=== PATIENT | female | born 1995 | race Caucasian/White ===

== ENCOUNTER 2020-02-17 18:18 | Outpatient (CLI) | payer OTHER | END 2020-02-17 18:19 | disposition home or self-care (01) | LOC: COV 18:18 | PROVIDERS: ATTEND Family Medicine | DX: R05 Cough (principal) ==

== ENCOUNTER 2020-05-31 17:49 | Emergency (ER) | payer OTHER ==
[2020-05-31] MEDS ORDERED: ALBUTEROL 1 PUFF INH STA ×2 (18:08→18:56)
--- NOTE | 2020-05-31 18:32 | ED Physician Documentation ---
History of Present Illness - Stated complaint Stated Complaint: COUGH, SOA - Chief complaint Chief Complaint: Resp - History obtained from History obtained from: Patient - History of Present Illness Timing: How many days ago - Additonal information Additional information: 25-year-old female presents to the emergency department with chief complaint of 6 days of dyspnea. 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 She has been using her albuterol but does not feel that it is helping. Patient reports that her parents have been sick recently but they have most tested negative for COVID-19. Subjective fevers 4 days ago but none since. No abdominal pain nausea vomiting or diarrhea. Patient denies possibility LMP May 16, 2020 No previous history of DVT or PE. no travel or unilateral leg swelling Review of Systems Constitutional: reports: Fever. denies: Chills, Myalgias Cardiac: denies: Chest pain / pressure, Palpitations Respiratory: reports: Dyspnea, Cough. denies: Hemoptysis, Wheezing GI: denies: Abdominal Pain, Abdominal Swelling, Nausea, Vomiting : denies: Dysuria Skin: reports: Rash, Lesions Musculoskeletal: reports: Neck pain, Back pain Neurologic: reports: Generalized weakness, Focal weakness PD PAST MEDICAL HISTORY - Past Medical History Past Medical History: Yes Cardiovascular: None Respiratory: Asthma Neuro: Migraines, Other Endocrine/Autoimmune: None GI: GERD AIRPORT RAMP SUPERVISOR: None : None HEENT: None Psych: Post traumatic stress disorder Musculoskeletal: None Derm: Eczema Other Past Medical History: brain aneurysm as child - Past Surgical History Past Surgical History: Yes General: Appendectomy HEENT: Tonsil/Adenoidectomy - Present Medications Home Medications: Ambulatory Orders Medication Instructions Recorded Confirmed Doxycycline Hyclate 100 mg PO BID #14 tablet. 05/31/20 predniSONE [Prednisone] 40 mg PO QDAC #8 tablet 05/31/20 - Allergies Allergies/Adverse Reactions: Allergies Allergy/AdvReac Type Severity Reaction Status Date / Time No Known Drug Allergies Allergy Verified 05/31/20 18:04 - Social History Does the pt smoke?: No Smoking Status: Never smoker Does the pt drink ETOH?: Yes Does the pt have substance abuse?: No - Immunizations Immunizations are current?: Yes - POLST Patient has POLST: No PD ED PE NORMAL - General General: Alert and oriented X 3, No acute distress, Well developed/nourished - HEENT HEENT: EOMI - Neck Neck: No bony TTP, No adenopathy - Cardiac Cardiac: RRR, No murmur - Respiratory Respiratory: Other (mild dyspnea; audible expiratory wheeze. dry cough) - Abdomen Abdomen: Normal bowel sounds, Soft, Non tender PD ED PE EXPANDED - General General: Alert, No acute distress, Well developed/nourished - Respiratory Respiratory: Wheezing (expiratory globally) - Abdomen Abdomen: Normal Bowel sounds. No: Distended, Tender to palpation - Derm Derm: No: Normal color, Warm and dry, Pale - GCS Eye Opening: Spontaneous Motor: Obeys Commands Verbal: Oriented Total: 15 Results - Vitals Vitals: Vital Signs - 24 hr 05/31/20 05/31/20 18:00 18:20 Temperature 36.1 C L 37.1 C Heart Rate 104 H 88 Respiratory 20 20 Rate Blood Pressure 139/82 H 126/83 H O2 Saturation 97 96 Oxygen O2 Source Room air - Rads (name of study) chest xray Radiology: Final report received (no acute cardiopulmonary process) PD MEDICAL DECISION MAKING - ED course Complexity details: reviewed results, re-evaluated patient, d/w patient, d/w family ED course: 25-year-old female who has a history of asthma presents with 6 days of progressive dyspnea dry cough and wheeze Chest x-ray is negative for acute focal infiltrate. Patient was given 6 puffs of albuterol using a spacer. Following this she had a cessation of her wheeze and her breathing was much less labored. - Patient is Wells criteria negative. Low suspicion for PE. Patient will be discharged with a prednisone burst as well as a doxycycline given her reported fevers and cough. ? bacterial bronchitis. COVID-19 testing is pending. Return precautions discussed if patient fails to improve as expected. Departure - Departure Disposition: 01 Home, Self Care Clinical Impression: Bronchitis Asthma with acute exacerbation Qualifiers: Asthma severity: moderate Asthma persistence: unspecified Qualified Code(s): J4 5.901 - Unspecified asthma with (acute) exacerbation Condition: Stable Instructions: Asthma Dc Prescriptions: Doxycycline Hyclate 100 mg PO BID #14 tablet. predniSONE [Prednisone] 40 mg PO QDAC #8 tablet Comments: I hoipe you feel better soon. Your xray is normal. I think this is an exacerba tion of your asthma. let's give you some steroids at home. This should help with cough and wheeze. As you've also had a fever and cough, we are starting you on antibiotics as well. COVID 19 testign is pending. REeturn here is not better. schedule follow up with your primary is 7-10 days
--- NOTE | 2020-05-31 18:44 | XRAY Report ---
PROCEDURE: Chest 1 View X-Ray INDICATIONS: cough TECHNIQUE: One view of the chest was acquired. COMPARISON: None. FINDINGS: Surgical changes and devices: None. Lungs and pleura: No pleural effusions or pneumothorax. Lungs are clear. Mediastinum: Mediastinal contours appear normal. Heart size is normal. Bones and chest wall: No suspicious bony lesions. Overlying soft tissues appear unremarkable. IMPRESSION: No acute cardiopulmonary disease. Reviewed by: David Max MD on 05/31/2020 6:42 PM PDT Approved by: David Max MD on 05/31/2020 6:42 PM PDT Station ID: [id number]
[2020-05-31] MEDS ORDERED: predniSONE 20 MG TABLET PO STA (19:09)
[2020-05-31 19:41] VITALS: BP 125/75
== END 2020-05-31 19:44 | disposition home or self-care (01) ==
LOC: ED 17:49
DX: J45.901 Unspecified asthma with (acute) exacerbation (principal); Z20.828 Contact with and (suspected) exposure to other viral communicable diseases
CPT/HCPCS: 71045; 81599; 94640; 99284; J7512

== ENCOUNTER 2021-01-31 20:19 | Emergency (ER) | payer OTHER ==
[2021-01-31] MEDS ORDERED: ALBUTEROL NEB 2.5 MG/3 ML INH STA ×2 (21:17→23:07)
[2021-01-31] MEDS ORDERED: CHERRY SYRUP 10 ML UDC PO ONE (21:21)
[2021-01-31] MEDS ORDERED: DEXAMETHASONE 10 MG/ML VIAL PO STA (21:21)
[2021-01-31] MEDS ORDERED: LIDOCAINE 1% 2 ML VIAL MC ONE (21:42)
[2021-01-31] MEDS ORDERED: cefTRIAXone 1 GM VIAL IM STA (21:42)
--- NOTE | 2021-01-31 21:52 | XRAY Report ---
PROCEDURE: Chest 1 View X-Ray INDICATIONS: chest pain TECHNIQUE: One view of the chest was acquired. COMPARISON: 05/31/2020 chest x-ray FINDINGS: Surgical changes and devices: None. Lungs and pleura: No pleural effusions or pneumothorax. Lungs are clear. Mediastinum: Mediastinal contours appear normal. Heart size is normal. Bones and chest wall: No suspicious bony lesions. Overlying soft tissues appear unremarkable. IMPRESSION: No acute process. Reviewed by: Robel Cruz MD on 01/31/2021 9:50 PM PST Approved by: Robel Cruz MD on 01/31/2021 9:50 PM [facility] Station ID: [id number]
[2021-01-31] MEDS ORDERED: IPRATROPIUM/ALBUTEROL 3 ML NEB INH STA (21:53)
--- NOTE | 2021-01-31 22:25 | ED Physician Documentation ---
PD HPI DYSPNEA - Stated complaint Stated Complaint: SOA - Chief complaint Chief Complaint: Resp - History obtained from History obtained from: Patient - History of Present Illness Timing - onset: How many days ago (4) Timing - onset during: Rest Timing - duration: Days (4) Timing - details: Gradual onset, Still present Inciting event(s): Out of meds, URI Improved by: Inhaler/neb Worsened by: Exertion, Coughing Associated symptoms: Cough, Wheezing. No: Fever Similar symptoms before: Diagnosis (asthma) Recently seen: Not recently seen - Additional information Additional information: Previously well 26-year-old female with a history of intermittent asthma has developed a cough and shortness of breath over the past 4 days and she has run out of her albuterol. She has been struggling more and more over the last 2 days and she comes in this evening dyspneic and working for breath. She has had an episode of asthmatic bronchitis last summer and following this she has had a bit more trouble with her asthma than previously. She still does not have to use an inhaler at all on a good week.She denies any exposure to coronavirus and states that she is in her home almost entirely. Review of Systems Constitutional: denies: Fever Eyes: denies: Decreased vision Ears: reports: Ear pain (R) Nose: reports: Rhinorrhea / runny nose, Congestion Throat: denies: Sore throat Cardiac: denies: Chest pain / pressure, Palpitations Respiratory: reports: Dyspnea, Cough, Wheezing GI: denies: Abdominal Pain, Nausea, Vomiting : denies: Dysuria, Frequency Skin: denies: Rash Musculoskeletal: denies: Neck pain, Back pain, Extremity pain Neurologic: denies: Generalized weakness, Focal weakness, Numbness PD PAST MEDICAL HISTORY - Past Medical History Cardiovascular: None Respiratory: Asthma Neuro: Migraines, Other Endocrine/Autoimmune: None GI: GERD DAYCARE WORKER: None : None HEENT: None Psych: Post traumatic stress disorder Musculoskeletal: None Derm: Eczema - Past Surgical History Past Surgical History: Yes General: Appendectomy HEENT: Tonsil/Adenoidectomy - Present Medications Home Medications: Ambulatory Orders Medication Instructions Recorded Confirmed Doxycycline Hyclate 100 mg PO BID #14 tablet. 05/31/20 predniSONE [Prednisone] 40 mg PO QDAC #8 tablet 05/31/20 Albuterol 2.5 mg INH Q4H PRN #30 ml 01/31/21 Albuterol Sulf [Ventolin Hfa 1 - 2 puffs INH Q4HR PRN #1 inhaler 01/31/21 Inhaler] Cefdinir 300 mg PO BID #20 01/31/21 predniSONE [Deltasone] 10 mg PO ONCE #26 tablet 01/31/21 - Allergies Allergies/Adverse Reactions: Allergies Allergy/AdvReac Type Severity Reaction Status Date / Time Penicillins Allergy Rash Verified 01/31/21 20:42 - Social History Does the pt smoke?: No Smoking Status: Never smoker Does the pt drink ETOH?: Yes Does the pt have substance abuse?: No - Immunizations Immunizations are current?: Yes - POLST Patient has POLST: No PD ED PE NORMAL - Vitals Vital signs reviewed: Yes (Hypertensive) - General General: Alert and oriented X 3, Well developed/nourished, Other (26-year-old female working for a breath with audible wheezing. She appears uncomfortable.) - HEENT HEENT: Atraumatic, PERRL, EOMI, Pharynx benign, Other (The right TM has erythema along the inferior border of the umbo and appears distorted. The left is clear) - Neck Neck: Supple, no meningeal sign, No bony TTP - Cardiac Cardiac: RRR, No murmur - Respiratory Respiratory: Other (The patient is tachypneic at rest and there are scattered wheezes and rhonchi throughout the lungs with poor air movement.) - Abdomen Abdomen: Soft, Non tender - Back Back: No CVA TTP, No spinal TTP - Derm Derm: Normal color, Warm and dry, No rash - Extremities Extremities: No deformity, No edema - Neuro Neuro: Alert and oriented X 3, occupational therapy director 2-12 intact, No motor deficit, No sensory deficit, Normal speech Eye Opening: Spontaneous Motor: Obeys Commands Verbal: Oriented GCS Score: 15 - Psych Psych: Normal mood, Normal affect Results - Vitals Vitals: Vital Signs - 24 hr 01/31/21 01/31/21 01/31/21 20:37 21:49 22:10 Temperature 36.7 C Heart Rate 96 91 102 H Respiratory 14 20 16 Rate Blood Pressure 133/94 H O2 Saturation 98 Oxygen O2 Source Room air - Rads (name of study) Chest Radiology: Prelim report reviewed (Impression: No acute process.), EMP read indepedently, See rad report PD MEDICAL DECISION MAKING - ED course Complexity details: reviewed old records, reviewed results, re-evaluated patient, considered differential, d/w patient ED course: 26-year-old female with a history of intermittent asthma has developed an asthma attack this week. She has run out of her albuterol rescue medication 2 days ago and she has been having a difficult time with breathing for the past 2 days. She arrives to the emergency department with audible wheezing and appears to be uncomfortable.She is administered an albuterol treatment as well as a DuoNeb treatment she is administered dexamethasone 10 mg and a gram of Rocephin IM. On examination she has otitis on the right side. She has a lot of wheezes and rhonchi on her exam her chest x-ray is read as negative. She does not have an inhaler at home and I am not able to dispense an inhaler to the patient. I have dispensed to albuterol fish to the patient as she does have a nebulizer machine at home. Departure - Departure Disposition: , Self Care Clinical Impression: Asthma with acute exacerbation Qualifiers: Asthma severity: mild Asthma persistence: intermittent Qualified Code(s): J45.21 - Mild intermittent asthma with (acute) exacerbation Otitis media Qualifiers: Otitis media type: suppurative Chronicity: acute Laterality: right Recurrence: not specified as recurrent Spontaneous tympanic membrane rupture: without spontaneous rupture Qualified Code(s): H66.001 - Acute suppurative otitis media without spontaneous rupture of ear drum, right ear Condition: Stable Instructions: ED Bronchitis Asthmatic, ED Otitis Media Acute Adult Follow-Up: [facility] [Provider Group] Prescriptions: Albuterol Sulf [Ventolin Hfa Inhaler] 1 - 2 puffs INH Q4HR PRN #1 inhaler PRN Reason: Shortness Of Air/Wheezing Albuterol 2.5 mg INH Q4H PRN #30 ml PRN Reason: Wheezing Cefdinir 300 mg PO BID #20 predniSONE [Deltasone] 10 mg PO ONCE #26 tablet
[2021-01-31 23:41] VITALS: BP 123/80
== END 2021-01-31 23:42 | disposition home or self-care (01) ==
LOC: ED 20:19
DX: J45.21 Mild intermittent asthma with (acute) exacerbation (principal); H66.001 Acute suppurative otitis media without spontaneous rupture of ear drum, right ear
CPT/HCPCS: 71045; 94640; 96372; 99284; 99285; A9270

== ENCOUNTER 2023-06-06 08:00 | Outpatient (CLI) | payer MEDICAID, OTHER ==
[2023-06-06 12:42] LABS: BILIRUBIN,URINE NEGATIVE (NEGATIVE); GLUCOSE, URINE (UA) NEGATIVE (NEGATIVE); KETONES,URINE (UA) NEGATIVE (NEGATIVE); LEUKOCYTE ESTERASE, URINE SMALL (NEGATIVE); NITRITE,URINE POSITIVE (NEGATIVE); OCCULT BLOOD,URINE NEGATIVE (NEGATIVE); PH,URINE 5.5 PH (5.0-7.5); PROTEIN,URINE NEGATIVE (NEGATIVE); UROBILINOGEN,URINE 0.2 (NORMAL) E.U./dL (NORMAL)
[2023-06-06 13:10] LABS: CLARITY,URINE CLOUDY (CLEAR); RBC,URINE 0-5 /HPF (0-5); SQUAMOUS EPITHELIAL CELL,UR MOD Squamous (<= Few)
[2023-06-06 13:11] LABS: BACTERIA,URINE Many /HPF (None Seen); CRYSTALS,URINE 0-2 Calcium Oxalate /LPF
[2023-06-06 18:23] LABS: CHLAMYDIA TRACHOMATIS DNA NEGATIVE (NEGATIVE); NEISSERIA GONORRHOEAE DNA NEGATIVE (NEGATIVE); TRICHOMONAS VAGINALIS DNA NEGATIVE (NEGATIVE)
== END 2023-06-06 23:59 | disposition home or self-care (01) ==
LOC: LAB.WC 08:00
PROVIDERS: ATTEND Obstetrics & Gynecology
DX: Z34.90 Encounter for supervision of normal pregnancy, unspecified, unspecified trimester (principal); Z36.89 Encounter for other specified antenatal screening
CPT/HCPCS: 81001; 87086; 87491; 87591; 87661

== ENCOUNTER 2023-06-24 12:56 | Outpatient (CLI) | payer MEDICAID ==
[2023-06-24 18:05] LABS: BILIRUBIN,URINE NEGATIVE (NEGATIVE); GLUCOSE, URINE (UA) NEGATIVE (NEGATIVE); KETONES,URINE (UA) NEGATIVE (NEGATIVE); LEUKOCYTE ESTERASE, URINE TRACE (NEGATIVE); NITRITE,URINE NEGATIVE (NEGATIVE); OCCULT BLOOD,URINE NEGATIVE (NEGATIVE); PROTEIN,URINE NEGATIVE (NEGATIVE); UROBILINOGEN,URINE 0.2 (NORMAL) E.U./dL (NORMAL)
[2023-06-24 18:14] LABS: CLARITY,URINE CLOUDY (CLEAR)
[2023-06-24 18:40] LABS: AMORPHOUS SEDIMENT,UR Marked /LPF; BACTERIA,URINE Rare /HPF (None Seen); RBC,URINE None Seen /HPF (0-5); SQUAMOUS EPITHELIAL CELL,UR RARE Squamous (<= Few); WBC,URINE 0-3 /HPF (0-5)
== END 2023-06-24 12:57 | disposition home or self-care (01) ==
LOC: LAB.N 12:56
PROVIDERS: ATTEND Obstetrics & Gynecology
DX: Z34.90 Encounter for supervision of normal pregnancy, unspecified, unspecified trimester (principal)
CPT/HCPCS: 81001; 87086; 87181

== ENCOUNTER 2023-07-16 11:40 | Outpatient (CLI) | payer MEDICAID | END 2023-07-16 11:41 | disposition home or self-care (01) | LOC: LAB.N 11:40 | PROVIDERS: ATTEND Obstetrics & Gynecology | DX: Z36.0 Encounter for antenatal screening for chromosomal anomalies (principal) | CPT/HCPCS: 36415; 81511 ==

== ENCOUNTER 2023-07-24 13:37 | Outpatient (CLI) | payer MEDICAID ==
--- NOTE | 2023-07-24 15:25 | Ultrasound Report ---
PROCEDURE: OB Detailed Eval INDICATIONS: SUPERVISION OF NORMAL PREGANCY OUTSIDE/PRIOR DATING DATA: Last menstrual period (LMP): 03/06/2023. LMP-based estimated date of delivery (OTILIO): 12/11/2023. First dating scan (date and location): 05/19/2023. Estimated date of delivery (OTILIO) from first dating scan: 12/18/2023. The below data below was generated using the ultrasound OTILIO of 12/18/2023 TECHNIQUE: Real-time scanning was performed of the fetus, with image documentation and biometric measurements. Endovaginal scanning: Not performed COMPARISON: None. FINDINGS: General: A single living intrauterine gestation is present. Presentation: Cephalic Placenta: Placental position is anterior, without previa. Amniotic fluid index: 14.3 cm, within normal limits for gestational age. heart rate: 150 beats per minute. Maternal cervical canal: 3.8 cm long; normal length is 2.5 cm or more. biometrics: Biparietal diameter: 4.7 cm, 20 weeks 2 days Head circumference: 17.4 cm, 19 weeks 6 days Abdominal circumference: 14.1 cm, 19 weeks 3 days Femur length: 2.9 cm, 18 weeks 5 days Estimated gestational age from initial scan: 19 weeks 0 days Composite gestational age from present scan: 19 weeks 4 days Estimated weight and percentile: 283 g, 61st percentile Measurement variability in biometric dating: +/- 10 days from 12-20 weeks gestation, +/- 2 weeks from 20-30 weeks gestation, +/- 3 weeks at 30 weeks gestation or later. Anatomic survey: Neuro: Ventricles are normal at less than 10 mm. Cisterna magna is normal at 3-11 mm. Cerebellum i s normal in size and morphology. Nuchal skin fold: Normal at less than 6 mm between 14 and 20 weeks gestational age. Face: Nose and lips, facial profile are normal. Spine: No evidence for spina bifida. Heart: 4-chambered heart is present, with normal ventricular outflow tracts. Diaphragm: Diaphragm is intact. Stomach: Left-sided stomach is present. Kidneys: No hydronephrosis. Normal is less than 5 mm in 2nd trimester, less than 7 mm in 3rd trimester. Cord: 3 vessel cord has orthotopic insertion. Bladder: Normal in size. Extremities: All 4 extremities are visualized. IMPRESSION: 1.Single live intrauterine dating 19 weeks and 4 days. 2.Normal anatomic survey. Reviewed by: Anish Goldberg MD on 07/24/2023 3:23 PM PDT Approved by: Anish Goldberg MD on 07/24/2023 3:23 PM PDT Station ID: [id number]
== END 2023-07-24 13:38 | disposition home or self-care (01) ==
LOC: DI 13:37
PROVIDERS: ATTEND Obstetrics & Gynecology
DX: Z34.01 Encounter for supervision of normal first pregnancy, first trimester (principal)

== ENCOUNTER 2023-08-29 08:00 | Outpatient (CLI) | payer MEDICAID ==
[2023-08-29 19:37] LABS: BACTERIAL VAGINOSIS DNA POSITIVE (NEGATIVE); CANDIDA GLABRATA DNA NEGATIVE (NEGATIVE); CANDIDA GROUP DNA POSITIVE (NEGATIVE); CANDIDA KRUSEI DNA NEGATIVE (NEGATIVE); TRICHOMONAS VAGINALIS DNA NEGATIVE (NEGATIVE)
== END 2023-08-29 23:59 | disposition home or self-care (01) ==
LOC: LAB.WC 08:00
PROVIDERS: ATTEND Nurse Practitioner
DX: N89.8 Other specified noninflammatory disorders of vagina (principal)
CPT/HCPCS: 81514

== ENCOUNTER 2023-09-05 13:44 | Outpatient (CLI) | payer MEDICAID ==
[2023-09-05 15:01] LABS: HCT - HEMATOCRIT 33.2 % (37.0-47.0); HGB - HEMOGLOBIN 10.9 g/dL (12.0-16.0); MEAN CORPUSCULAR HEMOGLOBIN 29.3 pg (27.0-31.0); MEAN CORPUSCULAR HGB CONC 32.8 g/dL (32.0-36.0); MEAN CORPUSCULAR VOLUME 89.2 fL (81.0-99.0); MEAN PLATELET VOLUME 10.8 fL (7.9-10.8); RED BLOOD COUNT 3.72 10^6/uL (4.20-5.40); RED CELL DISTRIBUTION WIDTH 12.5 % (12.0-15.0); WHITE BLOOD COUNT 11.5 x10^3/uL (4.8-10.8)
== END 2023-09-05 13:45 | disposition home or self-care (01) ==
LOC: LAB 13:44
PROVIDERS: ATTEND Nurse Practitioner
DX: Z34.00 Encounter for supervision of normal first pregnancy, unspecified trimester (principal)
CPT/HCPCS: 36415; 82950; 85027; 86850

== ENCOUNTER 2023-10-01 17:13 | Outpatient (CLI) | payer MEDICAID ==
--- NOTE | 2023-10-02 16:08 | Ultrasound Report ---
PROCEDURE: OB F/U or Repeat INDICATIONS: EXCESSIVE WEIGHT GAIN OUTSIDE/PRIOR DATING DATA: Last menstrual period (LMP): 03/06/2023. LMP-based estimated date of delivery (OTILIO): 12/11/2023. First dating scan (date and location): 05/19/2023. Estimated date of delivery (OTILIO) from first dating scan: 12/18/2023. The below data below was generated using the ultrasound OTILIO of 12/18/2023. TECHNIQUE: Real-time scanning was performed of the fetus, with image documentation and biometric measurements. Endovaginal scanning: Not performed. COMPARISON: OB ultrasound, 07/24/2023. FINDINGS: General: A single living intrauterine gestation is present. Presentation: Cephalic Placenta: Placental position is anterior, without previa. Amniotic fluid index: 15.6 cm, with the largest pocket 5.3 cm. heart rate: 147 beats per minute. Maternal cervical canal: Closed measuring 3.5 cm long; normal length is 2.5 cm or more. biometrics: Biparietal diameter: 7.8 cm; 31 weeks 2 days; 95.8%. Head circumference: 29.2 cm; 32 weeks 1 day; 96.2%. Abdominal circumference: 25.2 cm; 29 weeks 3 days; 59.8%. Femur length: 5.5 cm; 29 weeks 1 day; 43.2%. Estimated gestational age from initial scan: 28 weeks 6 days Composite gestational age from present scan: 30 weeks 4 days Estimated weight and percentile: 4407 g; 69.3%. Measurement variability in biometric dating: +/- 10 days from 12-20 weeks gestation, +/- 2 weeks from 20-30 weeks gestation, +/- 3 weeks at 30 weeks gestation or more. Other: Nuchal cord is noted. IMPRESSION: 1. A single living IUP is redemonstrated. 2. Interval growth is within normal limits. weight is 69.3% for gestational age. 3. Normal NEHA. 4. Nuchal cord is noted. Reviewed by: David Max MD on 10/02/2023 4:07 PM PST Approved by: David Max MD on 10/02/2023 4:07 PM PST Station ID: [id number]
== END 2023-10-01 17:14 | disposition home or self-care (01) ==
LOC: DI 17:13
PROVIDERS: ATTEND Obstetrics & Gynecology
DX: O26.02 Excessive weight gain in pregnancy, second trimester (principal); Z3A.30 30 weeks gestation of pregnancy

== ENCOUNTER 2023-10-23 07:00 | Outpatient (CLI) | payer MEDICAID ==
[2023-10-23 15:09] LABS: BILIRUBIN,URINE NEGATIVE (NEGATIVE); GLUCOSE, URINE (UA) 500 mg/dL (NEGATIVE); KETONES,URINE (UA) TRACE mg/dL (NEGATIVE); LEUKOCYTE ESTERASE, URINE NEGATIVE (NEGATIVE); NITRITE,URINE NEGATIVE (NEGATIVE); OCCULT BLOOD,URINE NEGATIVE (NEGATIVE); PH,URINE 5.5 PH (5.0-7.5); PROTEIN,URINE TRACE mg/dL (NEGATIVE); UROBILINOGEN,URINE 0.2 (NORMAL) E.U./dL (NORMAL)
[2023-10-23 15:30] LABS: CLARITY,URINE CLOUDY (CLEAR)
[2023-10-23 15:55] LABS: AMORPHOUS SEDIMENT,UR Marked /LPF; BACTERIA,URINE None Seen /HPF (None Seen); RBC,URINE None Seen /HPF (0-5); SQUAMOUS EPITHELIAL CELL,UR RARE Squamous (<= Few); WBC,URINE 0-3 /HPF (0-5)
== END 2023-10-23 23:59 | disposition home or self-care (01) ==
LOC: LAB.S 07:00
PROVIDERS: ATTEND Nurse Practitioner
DX: N30.90 Cystitis, unspecified without hematuria (principal)
CPT/HCPCS: 81001; 87086

== ENCOUNTER 2023-11-04 19:29 | Outpatient (CLI) | payer MEDICAID ==
--- NOTE | 2023-11-05 14:31 | Ultrasound Report ---
PROCEDURE: OB F/U or Repeat INDICATIONS: EXCESSIVE WEIGHT GAIN IN OUTSIDE/PRIOR DATING DATA: Last menstrual period (LMP): 03/06/2023. LMP-based estimated date of delivery (OTILIO): 12/11/2023. First dating scan (date and location): 05/19/2023. Estimated date of delivery (OTILIO) from first dating scan: 12/18/2023. The below data below was generated using the working OTILIO of 12/18/2023 TECHNIQUE: Ultrasound of the gravid uterus was performed and recorded. COMPARISON: 10/01/2023 FINDINGS: General: A single live intrauterine gestation is present. Presentation: Vertex Placenta: Placental position is anterior without previa. Amniotic fluid index: 20.8 cm, 84.9 for gestational age. heart rate: 127 beats per minute. Maternal cervical canal: Not imaged biometrics: Biparietal diameter: 6.9 cm, 36 week 1 day, 96.4 percentile Head circumference: 34.0 cm, 39 week 1 day, greater than 99.5 percentile Abdominal circumference: 32.2 cm, 36 week 1 day, 97.1 percentile Femur length: 6.1 cm, 33 week 1 day, 23.1 percentile Estimated gestational age by working dates: 33 week 5 day Composite gestational age by current ultrasound: 36 week 1 day Estimated weight and percentile: 2730.3 g, 92.1 percentile Measurement variability in biometric dating: +/- 10 days from 12-20 weeks gestation, +/- 2 weeks from 20-30 weeks gestation, +/- 3 weeks at 30 weeks gestation or more. Other: Not applicable. IMPRESSION: Single live intrauterine consistent with 36 week 1 day gestation by current ultrasound Dates by current ultrasound and working OTILIO are discrepant by 2 week 3 day. There is a relative femur length delay as well. Reviewed by: Ike Mcdonald MD on 11/05/2023 1:30 PM [facility] Approved by: Ike Mcdonald MD on 11/05/2023 1:30 PM [facility] Station ID: [id number]
== END 2023-11-04 19:30 | disposition home or self-care (01) ==
LOC: DI 19:29
PROVIDERS: ATTEND Nurse Practitioner
DX: O26.03 Excessive weight gain in pregnancy, third trimester (principal); Z3A.36 36 weeks gestation of pregnancy

== ENCOUNTER 2023-11-05 09:07 | Outpatient (CLI) | payer MEDICAID ==
[2023-11-05 10:22] LABS: HCT - HEMATOCRIT 35.3 % (37.0-47.0); HGB - HEMOGLOBIN 11.5 g/dL (12.0-16.0); MEAN CORPUSCULAR HEMOGLOBIN 28.5 pg (27.0-31.0); MEAN CORPUSCULAR HGB CONC 32.6 g/dL (32.0-36.0); MEAN CORPUSCULAR VOLUME 87.4 fL (81.0-99.0); MEAN PLATELET VOLUME 11.5 fL (7.9-10.8); RED BLOOD COUNT 4.04 10^6/uL (4.20-5.40); RED CELL DISTRIBUTION WIDTH 13.4 % (12.0-15.0); WHITE BLOOD COUNT 11.3 x10^3/uL (4.8-10.8)
[2023-11-05 12:27] LABS: ESTIMATED AVERAGE GLUCOSE 117 mg/dL (70-100); HEMOGLOBIN A1c% 5.7 % (4.27-6.07)
== END 2023-11-05 09:08 | disposition home or self-care (01) ==
LOC: LAB 09:07
PROVIDERS: ATTEND Nurse Practitioner
DX: O99.891 Other specified diseases and conditions complicating pregnancy (principal); R81 Glycosuria; Z36.89 Encounter for other specified antenatal screening
CPT/HCPCS: 36415; 82950; 83036; 85027

== ENCOUNTER 2023-11-14 16:19 | Outpatient (CLI) | payer MEDICAID ==
[2023-11-14] MEDS ORDERED: SODIUM CHLORIDE FLUSH 0.9% 10 ML SYRINGE IVP PRN (17:21)
[2023-11-14] MEDS ORDERED: LACTATED RINGERS 500 ML IV ONE (17:21)
[2023-11-14] MEDS ORDERED: LACTATED RINGERS 1,000 ML IV ONE (17:30)
--- NOTE | 2023-11-14 18:59 | PROVIDER PROGRESS NOTE ---
- HPI Chief Complaint: Diabetes Current : Current EDU 12/18/23 Gestation 35 Weeks and 1 Days 3 Para 0 Vital Signs Temperature 97.9 F 11/14/23 16:32 Heart Rate 90 11/14/23 16:32 Respiratory Rate 18 11/14/23 16:32 Blood Pressure 120/68 11/14/23 16:32 Temperature 97.9 F 11/14/23 16:32 Heart Rate 90 11/14/23 16:32 Respiratory Rate 18 11/14/23 16:32 Blood Pressure 120/68 11/14/23 16:32 O2 Saturation If not protocol: Oxygen Flow, liters/minute - Exam VSS NAD Conjunctiva pink, pale sclera +S1, S2, early systolic murmur - pt reports this is a known heart murmur since CTAB, no increased work of breathing Abd soft, NT, ND, visibly gravid at late EFM: 150mod corin + A cells no D cells, reactive [place]: acontractile --> hydration increased ctx --> voided --> still ctx Cx: Ext: neg CCE - Procedures OB Procedure Performed: NST Diagnosis/Indication for NST: Gestational Diabetes NST Procedure: NST Procedure Start Date 11/14/23 Start Time 16:30 Stop Time 17:00 Vibroacoustic Stimulation Used No Patient States Movement Yes Findings: 150 mod corin + A cells no D cells reactive - Plan Plan: will recheck cx in 4h to see if any change as 35w and essential prime continue IV hydration.
[2023-11-14] MEDS ORDERED: LACTATED RINGERS 1,000 ML IV PRN ×2 (19:25→19:49)
--- NOTE | 2023-11-14 22:56 | PROVIDER PROGRESS NOTE ---
- HPI Current : Current EDU 12/18/23 Gestation 35 Weeks and 1 Days 3 Para 0 Vital Signs Temperature 97.9 F 11/14/23 16:32 Heart Rate 90 11/14/23 16:32 Respiratory Rate 18 11/14/23 16:32 Blood Pressure 120/68 11/14/23 16:32 Temperature 97.9 F 11/14/23 16:32 Heart Rate 90 11/14/23 16:32 Respiratory Rate 18 11/14/23 16:32 Blood Pressure 120/68 11/14/23 16:32 O2 Saturation If not protocol: Oxygen Flow, liters/minute - Procedures NST Procedure: NST Procedure Start Date 11/14/23 Start Time 16:30 Stop Time 17:00 Vibroacoustic Stimulation Used No Patient States Movement Yes - Plan Plan: Pt now s/p 2L of fluid, and PO fluid NST more reassuring -- 150 mod corin + A cells no D cells VSS Cx: rechecked - //hi -- no change -- cannot insert finger through internal os. Plan: D/C home with precautions and instructions f/u with next scheduled NST.
[2023-11-14 23:28] VITALS: BP 127/68
[2023-11-15 00:27] LABS: BACTERIAL VAGINOSIS DNA NEGATIVE (NEGATIVE); CANDIDA GLABRATA DNA NEGATIVE (NEGATIVE); CANDIDA GROUP DNA POSITIVE (NEGATIVE); CANDIDA KRUSEI DNA NEGATIVE (NEGATIVE); TRICHOMONAS VAGINALIS DNA NEGATIVE (NEGATIVE)
== END 2023-11-14 23:38 | disposition home or self-care (01) ==
LOC: WFO 16:19 → FBP 16:20 → WFO 23:38
PROVIDERS: ATTEND Obstetrics & Gynecology
DX: O24.419 Gestational diabetes mellitus in pregnancy, unspecified control (principal); Z3A.35 35 weeks gestation of pregnancy; O99.891 Other specified diseases and conditions complicating pregnancy; R01.1 Cardiac murmur, unspecified
CPT/HCPCS: 59025; 81514; 96360; 99215; J7120

== ENCOUNTER 2023-11-18 13:16 | Outpatient (CLI) | payer MEDICAID ==
[2023-11-18 13:43] VITALS: BP 122/78
--- NOTE | 2023-11-18 16:01 | PROCEDURE REPORT ---
- HPI Current EDU 12/18/23 Gestation 35 Weeks and 5 Days 3 Para 0 Vital Signs Temperature 98.4 F 11/18/23 13:26 Heart Rate 95 11/18/23 13:26 Respiratory Rate 18 11/18/23 13:26 Blood Pressure 122/78 11/18/23 13:26 Temperature 98.4 F 11/18/23 13:26 Heart Rate 95 11/18/23 13:26 Respiratory Rate 18 11/18/23 13:26 Blood Pressure 122/78 11/18/23 13:26 O2 Saturation If not protocol: Oxygen Flow, liters/minute - NST Procedure NST Procedure Start Date 11/18/23 Start Time 13:24 Stop Time 14:21 Vibroacoustic Stimulation Used No Patient States Movement Yes - Results and Plan Plan: Patient is a 28-year-old G3, P0 at 35 weeks 5 days gestation here for scheduled NST. NST Performed 11/18/2023 NST Read 11/18/2023 FHT: 145 bpm baseline, moderate variability, accelerations present, no decelerations. Reactive NST [place]: Irregular, declines significant pain. Declined cervical check. Diagnosis 35 weeks gestation Abnormal glucose tolerance in Continue with scheduled NST.
== END 2023-11-18 15:00 | disposition home or self-care (01) ==
LOC: WFO 13:16 → FBP 13:18 → WFO 15:00
PROVIDERS: ATTEND Obstetrics & Gynecology
DX: O99.810 Abnormal glucose complicating pregnancy (principal); Z3A.35 35 weeks gestation of pregnancy
CPT/HCPCS: 59025

== ENCOUNTER 2023-11-19 21:02 | Outpatient (CLI) | payer MEDICAID ==
--- NOTE | 2023-11-20 13:57 | Ultrasound Report ---
PROCEDURE: OB F/U or Repeat INDICATIONS: ABNL GLUCOSE TOLERANCE IN PREG OUTSIDE/PRIOR DATING DATA: Last menstrual period (LMP): 03/06/2023. LMP-based estimated date of delivery (OTILIO): 12/11/2023. First dating scan (date and location): 05/19/2023. Estimated date of delivery (OTILIO) from first dating scan: 12/18/2023. The below data below was generated using the working OTILIO of 12/18/2023 TECHNIQUE: Ultrasound of the gravid uterus was performed and recorded. COMPARISON: 11/04/2023 FINDINGS: General: A single live intrauterine gestation is present. Presentation: Vertex Placenta: Placental position is anterior without previa. Amniotic fluid index: 22.1 cm, within normal limits for gestational age. heart rate: 147 beats per minute. Maternal cervical canal: Not imaged. biometrics: Biparietal diameter: 9.3 cm, 37 week 6 day, 95.7 percentile Head circumference: 34.5 cm, 40 week 0 day, 96.5 percentile Abdominal circumference: 34.4 cm, 38 week 2 day, 98.2 percentile Femur length: 6.7 cm, 34 week 4 day, 15.7 percentile Estimated gestational age by working dates: 35 week 6 day Composite gestational age by current ultrasound: 37 week 5 day Estimated weight and percentile: 3249.5 g, 90.7 percentile Measurement variability in biometric dating: +/- 10 days from 12-20 weeks gestation, +/- 2 weeks from 20-30 weeks gestation, +/- 3 weeks at 30 weeks gestation or more. Other: Biophysical profile score 8 out of 8 IMPRESSION: Single live intrauterine consistent with 37 week 5 day gestation by current ultrasound and 35 week 6 day by first dating scan. Biophysical profile score 8 out of 8. Reviewed by: Ike Mcdonald MD on 11/20/2023 12:56 PM [facility] Approved by: Ike Mcdonald MD on 11/20/2023 12:56 PM [facility] Station ID: [id number]
--- NOTE | 2023-11-20 13:58 | Ultrasound Report ---
PROCEDURE: OB Biophysical Profile INDICATIONS: ABN GLUCOSE TEST IN OUTSIDE/PRIOR DATING DATA: Last menstrual period (LMP): 03/06/2023. LMP-based estimated date of delivery (OTILIO): 12/11/2023. First dating scan (date and location): 05/19/2023. Estimated date of delivery (OTILIO) from first dating scan: 12/18/2023. The below data below was generated using the working OTILIO of 12/18/2023 TECHNIQUE: Ultrasound of the gravid uterus was performed and recorded. COMPARISON: 11/04/2023 FINDINGS: General: A single live intrauterine gestation is present. Presentation: Vertex Placenta: Placental position is anterior without previa. Amniotic fluid index: 22.1 cm, within normal limits for gestational age. heart rate: 147 beats per minute. Maternal cervical canal: Not imaged. biometrics: Biparietal diameter: 9.3 cm, 37 week 6 day, 95.7 percentile Head circumference: 34.5 cm, 40 week 0 day, 96.5 percentile Abdominal circumference: 34.4 cm, 38 week 2 day, 98.2 percentile Femur length: 6.7 cm, 34 week 4 day, 15.7 percentile Estimated gestational age by working dates: 35 week 6 day Composite gestational age by current ultrasound: 37 week 5 day Estimated weight and percentile: 3249.5 g, 90.7 percentile Measurement variability in biometric dating: +/- 10 days from 12-20 weeks gestation, +/- 2 weeks from 20-30 weeks gestation, +/- 3 weeks at 30 weeks gestation or more. Other: Biophysical profile score 8 out of 8 IMPRESSION: Single live intrauterine consistent with 37 week 5 day gestation by current ultrasound and 35 week 6 day by first dating scan. Biophysical profile score 8 out of 8. Reviewed by: Ike Mcdonald MD on 11/20/2023 12:57 PM [facility] Approved by: Ike Mcdonald MD on 11/20/2023 12:57 PM [facility] Station ID: [id number]
== END 2023-11-19 21:03 | disposition home or self-care (01) ==
LOC: DI 21:02
PROVIDERS: ATTEND Nurse Practitioner
DX: O99.810 Abnormal glucose complicating pregnancy (principal); Z3A.37 37 weeks gestation of pregnancy

== ENCOUNTER 2023-11-20 08:00 | Outpatient (CLI) | payer MEDICAID | END 2023-11-20 23:59 | disposition home or self-care (01) | LOC: LAB.WC 08:00 | PROVIDERS: ATTEND Obstetrics & Gynecology | DX: Z36.85 Encounter for antenatal screening for Streptococcus B (principal) | CPT/HCPCS: 87797 ==

== ENCOUNTER 2023-11-21 14:01 | Outpatient (CLI) | payer MEDICAID ==
[2023-11-21 14:15] VITALS: BP 116/71
--- NOTE | 2023-11-21 16:29 | PROCEDURE REPORT ---
- HPI Diagnosis/Indication for NST: Gestational Diabetes Current EDU 12/18/23 Gestation 36 Weeks and 1 Days 3 Para 0 Vital Signs Temperature 98.2 F 11/21/23 14:06 Heart Rate 110 H 11/21/23 14:06 Respiratory Rate 18 11/21/23 14:06 Blood Pressure 116/71 11/21/23 14:06 Temperature 98.2 F 11/21/23 14:06 Heart Rate 110 H 11/21/23 14:06 Respiratory Rate 18 11/21/23 14:06 Blood Pressure 116/71 11/21/23 14:06 O2 Saturation If not protocol: Oxygen Flow, liters/minute - NST Procedure NST Procedure Start Date 11/21/23 Start Time 14:08 Stop Time 14:31 Vibroacoustic Stimulation Used No Patient States Movement Yes NST REVIEWED IN REAL TIME. baseline 140. + Acels. no decels. moderate variability - Results and Plan Findings/Impression: reactive nst Plan: care as scheduled.
== END 2023-11-21 14:40 | disposition home or self-care (01) ==
LOC: WFO 14:01 → FBP 14:04 → WFO 14:40
PROVIDERS: ATTEND Obstetrics & Gynecology
DX: O24.419 Gestational diabetes mellitus in pregnancy, unspecified control (principal); Z3A.36 36 weeks gestation of pregnancy
CPT/HCPCS: 59025

== ENCOUNTER 2023-11-26 15:41 | Outpatient (CLI) | payer MEDICAID ==
--- NOTE | 2023-11-26 16:41 | Ultrasound Report ---
PROCEDURE: OB Biophysical Profile INDICATIONS: ABN GLUCOSE IN OUTSIDE/PRIOR DATING DATA: Last menstrual period (LMP): 03/06/2023. LMP-based estimated date of delivery (OTILIO): 12/11/2023. First dating scan (date and location): 05/19/2023. Not available for review Estimated date of delivery (OTILIO) from first dating scan: 12/18/2023 (working OTILIO). TECHNIQUE: Real-time scanning was performed of the fetus, with image documentation and biometric vadim surements. Biophysical profile was also obtained. COMPARISON: 11/19/2023 FINDINGS: General: A single living intrauterine gestation is present. Presentation: Vertex Placenta: Placental position is anterior, without previa. Amniotic fluid index: 20.7 cm, within normal limits for gestational age. heart rate: 158 beats per minute. Maternal cervical canal: 4.7 cm long; normal length is 2.5 cm or more. Estimated gestational age is 36 weeks and 6 days. Biophysical profile: Tone: 2 points. Movement: 2 points. Respiration: 2 points. Largest pocket of fluid: 2 points. IMPRESSION: BPP score is 8 out of 8. Living intrauterine gestation in vertex presentation. NEHA is 20.7 Reviewed by: Damon Sam MD on 11/26/2023 4:40 PM PST Approved by: Damon Sam MD on 11/26/2023 4:40 PM PST Station ID: [id number]
== END 2023-11-26 15:42 | disposition home or self-care (01) ==
LOC: DI 15:41
PROVIDERS: ATTEND Nurse Practitioner
DX: O99.810 Abnormal glucose complicating pregnancy (principal); Z3A.36 36 weeks gestation of pregnancy

== ENCOUNTER 2023-11-26 16:16 | Outpatient (CLI) | payer MEDICAID ==
--- NOTE | 2023-11-26 17:30 | PROCEDURE REPORT ---
- HPI Vital Signs Temperature 97.7 F 11/26/23 16:28 Heart Rate 77 11/26/23 16:28 Respiratory Rate 18 11/26/23 16:28 Blood Pressure 129/74 11/26/23 16:28 Temperature 97.7 F 11/26/23 16:28 Heart Rate 77 11/26/23 16:28 Respiratory Rate 18 11/26/23 16:28 Blood Pressure 129/74 11/26/23 16:28 O2 Saturation If not protocol: Oxygen Flow, liters/minute - NST Procedure NST Procedure Start Date 11/26/23 Start Time 16:28 Stop Time 19:42 Vibroacoustic Stimulation Used No Patient States Movement Yes - Results and Plan Plan: Patient is a [ ] here for scheduled NST. NST Performed 11/26/2023 NST Read 07/27/2024 FHT: 145 beats per baseline, moderate variability, accelerations present, variable decelerations decelerations. Reactive NST [place]: 1-5 SVE 0/25/-3 BPP 8/8, NEHA 20 cm Had a run of variable decelerations subsided. Reassuring NST subsequently as well as normal BPP. Diagnosis 36 weeks gestation Gestational diabetes Continue with scheduled NST.
[2023-11-26 18:56] VITALS: BP 134/80; O2SAT 94
== END 2023-11-26 19:50 | disposition home or self-care (01) ==
LOC: WFO 16:16 → FBP 16:18 → WFO 19:50
PROVIDERS: ATTEND Obstetrics & Gynecology
DX: O24.419 Gestational diabetes mellitus in pregnancy, unspecified control (principal); Z3A.36 36 weeks gestation of pregnancy
CPT/HCPCS: 59025

== ENCOUNTER 2023-11-29 16:08 | Outpatient (CLI) | payer MEDICAID ==
[2023-11-29 16:23] VITALS: BP 128/78
--- NOTE | 2023-11-29 16:53 | PROCEDURE REPORT ---
- HPI Diagnosis/Indication for NST: Gestational Diabetes Vital Signs Temperature 97.7 F 11/29/23 16:18 Heart Rate 64 11/29/23 16:18 Respiratory Rate 16 11/29/23 16:18 Blood Pressure 128/78 11/29/23 16:18 Temperature 97.7 F 11/29/23 16:18 Heart Rate 64 11/29/23 16:18 Respiratory Rate 16 11/29/23 16:18 Blood Pressure 128/78 11/29/23 16:18 O2 Saturation If not protocol: Oxygen Flow, liters/minute - NST Procedure NST Procedure Start Time 16:28 Stop Time 19:42 - Results and Plan Findings/Impression: 140 mod corin + A cells no D cells reactive Plan: OK to D/C home with and continue scheduled ANC.
== END 2023-11-29 16:50 | disposition home or self-care (01) ==
LOC: WFO 16:08 → FBP 16:09 → WFO 16:50
PROVIDERS: ATTEND Obstetrics & Gynecology
DX: O24.419 Gestational diabetes mellitus in pregnancy, unspecified control (principal); Z3A.00 Weeks of gestation of pregnancy not specified
CPT/HCPCS: 59025

== ENCOUNTER 2023-12-02 15:07 | Outpatient (CLI) | payer MEDICAID ==
--- NOTE | 2023-12-02 16:52 | Ultrasound Report ---
PROCEDURE: OB Biophysical Profile INDICATIONS: ABN GLUCOSE TEST IN OUTSIDE/PRIOR DATING DATA: Last menstrual period (LMP): 03/06/2023. LMP-based estimated date of delivery (OTILIO): 12/11/2023. First dating scan (date and location): 05/19/2023. Estimated date of delivery (OTILIO) from first dating scan: 12/18/2023. The below data below was generated using the ultrasound OTILIO of 12/18/2023 TECHNIQUE: Real-time scanning was performed of the fetus, with image documentation and biometric vadim surements. Endovaginal scanning: Not performed COMPARISON: None. FINDINGS: General: A single living intrauterine gestation is present. Presentation: Vertex Placenta: Placental position is anterior, without previa. Amniotic fluid index: 17.4 cm, normal for gestational age. heart rate: 155 beats per minute. Maternal cervical canal not imaged. Biophysical profile: Tone: 2 points. Movement: 2 points. Respiration: 2 points. Largest pocket of fluid: 2 points. Umbilical artery Doppler: Not requested. IMPRESSION: Single living intrauterine at 37 weeks 5 days, OTILIO of 12/18/2023. BPP 8 of 8. Reviewed by: Zachary Tejeda MD on 12/02/2023 4:51 PM PST Approved by: Zachary Tejeda MD on 12/02/2023 4:51 PM PST Station ID: [id number]
== END 2023-12-02 15:08 | disposition home or self-care (01) ==
LOC: DI 15:07
PROVIDERS: ATTEND Nurse Practitioner
DX: O99.810 Abnormal glucose complicating pregnancy (principal); Z3A.37 37 weeks gestation of pregnancy

== ENCOUNTER 2023-12-02 15:35 | Outpatient (CLI) | payer MEDICAID ==
[2023-12-02 15:58] VITALS: BP 122/74
--- NOTE | 2023-12-02 17:54 | PROCEDURE REPORT ---
- HPI Current EDU 12/11/23 Gestation 37 Weeks and 5 Days 1 Para 0 Vital Signs Temperature 98.2 F 12/02/23 15:49 Heart Rate 88 12/02/23 15:49 Respiratory Rate 18 12/02/23 15:49 Blood Pressure 122/74 12/02/23 15:49 Temperature 98.2 F 12/02/23 16:00 Heart Rate 88 12/02/23 15:49 Respiratory Rate 18 12/02/23 15:49 Blood Pressure 122/74 12/02/23 15:49 O2 Saturation If not protocol: Oxygen Flow, liters/minute - NST Procedure NST Procedure Start Date 12/02/23 Start Time 15:43 Stop Time 17:05 Vibroacoustic Stimulation Used No Patient States Movement Yes - Results and Plan Plan: Patient is a 28-year-old G1, P0 at 37 weeks 5 days gestation here for scheduled NST. NST Performed 12/02/2023 NST Read 12/02/2023 FHT: 135 bpm baseline, moderate variability, accelerations present, no decelerations. Reactive NST [place]: Irritable Diagnosis 37 weeks gestation Gestational diabetes Continue with scheduled NST.
== END 2023-12-02 17:10 | disposition home or self-care (01) ==
LOC: WFO 15:35 → FBP 15:37 → WFO 17:10
PROVIDERS: ATTEND Obstetrics & Gynecology
DX: O24.419 Gestational diabetes mellitus in pregnancy, unspecified control (principal); Z3A.37 37 weeks gestation of pregnancy
CPT/HCPCS: 59025

== ENCOUNTER 2023-12-04 16:07 | Outpatient (CLI) | payer MEDICAID ==
[2023-12-04 16:58] LABS: HGB - HEMOGLOBIN 12.1 g/dL (12.0-16.0); MEAN CORPUSCULAR HEMOGLOBIN 28.3 pg (27.0-31.0); MEAN CORPUSCULAR HGB CONC 32.7 g/dL (32.0-36.0); MEAN CORPUSCULAR VOLUME 86.7 fL (81.0-99.0); MEAN PLATELET VOLUME 12.1 fL (7.9-10.8); RED BLOOD COUNT 4.27 10^6/uL (4.20-5.40); RED CELL DISTRIBUTION WIDTH 13.7 % (12.0-15.0); WHITE BLOOD COUNT 9.5 x10^3/uL (4.8-10.8)
[2023-12-04 18:06] LABS: CREATININE,URINE 180.9 mg/dL; PROTEIN/CREATININE RATIO,URINE 0.2 (<=0.2)
[2023-12-04 20:03] LABS: ESTIMATED AVERAGE GLUCOSE 126 mg/dL (70-100)
== END 2023-12-04 16:08 | disposition home or self-care (01) ==
LOC: LAB 16:07
PROVIDERS: ATTEND Obstetrics & Gynecology
DX: O24.425 Gestational diabetes mellitus in childbirth, controlled by oral hypoglycemic drugs (principal); O99.013 Anemia complicating pregnancy, third trimester
CPT/HCPCS: 36415; 82570; 82728; 83036; 84156; 85027

== ENCOUNTER 2023-12-05 15:59 | Outpatient (CLI) | payer MEDICAID ==
[2023-12-05 16:21] VITALS: BP 124/66; O2SAT 96
--- NOTE | 2023-12-05 17:27 | PROCEDURE REPORT ---
- HPI Diagnosis/Indication for NST: Gestational Diabetes Current EDU 12/11/23 Gestation 39 Weeks and 1 Days 3 Para 1 Vital Signs Temperature 98.1 F 12/05/23 16:14 Heart Rate 82 12/05/23 16:14 Respiratory Rate 17 12/05/23 16:14 Blood Pressure 124/66 12/05/23 16:14 O2 Saturation 96 12/05/23 16:14 Temperature 98.1 F 12/05/23 16:14 Heart Rate 82 12/05/23 16:14 Respiratory Rate 17 12/05/23 16:14 Blood Pressure 124/66 12/05/23 16:14 O2 Saturation 96 12/05/23 16:14 If not protocol: Oxygen Flow, liters/minute - NST Procedure NST Procedure Start Date 12/05/23 Start Time 16:40 Stop Time 17:05 Vibroacoustic Stimulation Used Yes - Results and Plan Findings/Impression: Patient is a 28-year-old G3, P0 at 38 weeks 1 day gestation here for scheduled N ST. NST Performed 12/05/2023 NST Read 12/05/2023 FHT: 145 bpm baseline, moderate variability, accelerations present, no decelerations. Reactive NST [place]: Irregular Diagnosis 38 weeks gestation Gestational diabetes Continue with scheduled NST.
== END 2023-12-05 17:25 | disposition home or self-care (01) ==
LOC: WFO 15:59 → FBP 16:00 → WFO 17:25
PROVIDERS: ATTEND Obstetrics & Gynecology
DX: O24.419 Gestational diabetes mellitus in pregnancy, unspecified control (principal); Z3A.39 39 weeks gestation of pregnancy
CPT/HCPCS: 59025

== ENCOUNTER 2023-12-06 13:47 | Outpatient (CLI) | payer MEDICAID ==
[2023-12-06 14:57] VITALS: BP 128/75
--- NOTE | 2023-12-11 17:51 | PROCEDURE REPORT ---
- HPI Diagnosis/Indication for NST: Gestational Diabetes Current EDU 12/18/23 Gestation 38 Weeks and 2 Days 3 Para 0 Vital Signs Temperature 97.5 F L 12/06/23 13:52 Heart Rate 83 12/06/23 13:52 Respiratory Rate 18 12/06/23 13:52 Blood Pressure 143/77 H 12/06/23 13:52 Temperature 97.5 F L 12/06/23 13:52 Heart Rate 83 12/06/23 13:52 Respiratory Rate 18 12/06/23 13:52 Blood Pressure 128/75 12/06/23 14:10 O2 Saturation If not protocol: Oxygen Flow, liters/minute - NST Procedure NST Procedure Start Date 12/06/23 Start Time 13:55 Stop Time 16:13 Vibroacoustic Stimulation Used No Patient States Movement Yes - Results and Plan Plan: Patient is a 28-year-old -0-2-0 here for scheduled NST. NST Performed 12/06/2023 NST Read 12/06/2023 FHT: 135 bpm baseline, moderate variability, accelerations present, no decelerations. Reactive NST [place]: Irregular Diagnosis Gestational diabetes 38 weeks gestation
== END 2023-12-06 16:15 | disposition home or self-care (01) ==
LOC: WFO 13:47 → FBP 13:48 → WFO 16:15
PROVIDERS: ATTEND Obstetrics & Gynecology
DX: O24.419 Gestational diabetes mellitus in pregnancy, unspecified control (principal); Z3A.38 38 weeks gestation of pregnancy
CPT/HCPCS: 99215

== ENCOUNTER 2023-12-08 19:02 | Outpatient (CLI) | payer MEDICAID ==
--- NOTE | 2023-12-08 20:28 | PROCEDURE REPORT ---
- HPI Diagnosis/Indication for NST: Gestational Diabetes Current EDU 12/18/23 Gestation 38 Weeks and 4 Days 3 Para 0 - NST Procedure NST Procedure Start Date 12/08/23 Start Time 19:11 Stop Time 20:10 Vibroacoustic Stimulation Used No Patient States Movement Yes NST reviewed in real time. baseline 140. acels and no decels. moderate variability. - Results and Plan Findings/Impression: reactive NST Plan: care as scheduled.
[2023-12-08 20:36] VITALS: BP 128/66
== END 2023-12-08 20:10 | disposition home or self-care (01) ==
LOC: WFO 19:02 → FBP 19:04 → WFO 20:10
PROVIDERS: ATTEND Obstetrics & Gynecology
DX: O24.419 Gestational diabetes mellitus in pregnancy, unspecified control (principal); Z3A.38 38 weeks gestation of pregnancy
CPT/HCPCS: 59025

== ENCOUNTER 2023-12-11 14:25 | Inpatient (IN) | payer MEDICAID ==
[2023-12-11] MEDS: SODIUM CHLORIDE FLUSH 0.9% 10 ML SYRINGE IVP SCH ×2 (14:30→23:00)
[2023-12-11] MEDS ORDERED: TRANEXAMIC ACID IN NACL 1,000 MG/100 ML BAG IV PRN (14:42)
[2023-12-11] MEDS ORDERED: fentaNYL 100 MCG/2 ML VIAL IVP PRN (14:42)
[2023-12-11] MEDS ORDERED: OXYTOCIN/SODIUM CHLORIDE 500 ML IV PRN (14:42)
[2023-12-11] MEDS ORDERED: lidocaine 1% 20 ML MDV ID PRN (14:42)
[2023-12-11] MEDS ORDERED: TERBUTALINE 1 MG/ML VIAL SUBQ PRN (14:42)
[2023-12-11] MEDS ORDERED: LACTATED RINGERS 1,000 ML IV PRN (14:42)
[2023-12-11] MEDS ORDERED: miSOPROStoL 200 MCG TABLET PR PRN (14:42)
[2023-12-11] MEDS ORDERED: CARBOPROST TROMETHAMINE 250 MCG/ML AMP IM PRN (14:42)
[2023-12-11] MEDS ORDERED: SODIUM CHLORIDE FLUSH 0.9% 10 ML SYRINGE IVP PRN (14:42)
[2023-12-11] MEDS ORDERED: NIFEdipine 10 MG CAPSULE PO PRN (14:42)
[2023-12-11] MEDS ORDERED: OXYTOCIN 10 UNIT/ML VIAL IM PRN (14:42)
[2023-12-11] MEDS ORDERED: miSOPROStoL 200 MCG TABLET BC PRN (14:42)
[2023-12-11] MEDS ORDERED: LABETALOL 20 MG/4 ML SYRINGE IVP PRN ×3 (14:42)
[2023-12-11] MEDS ORDERED: hydrALAZINE INJ 20 MG/ML VIAL IVP PRN ×2 (14:42)
[2023-12-11] MEDS ORDERED: METHYLERGONOVINE 0.2 MG/ML VIAL IM PRN (14:42)
[2023-12-11 16:00] LABS: BASOPHILS % (AUTO) 0.2 %; EOSINOPHILS # (AUTO) 0.1 10^3/uL (0.0-0.7); EOSINOPHILS % (AUTO) 1.2 %; HCT - HEMATOCRIT 38.8 % (37.0-47.0); HGB - HEMOGLOBIN 12.5 g/dL (12.0-16.0); LYMPHOCYTES # (AUTO) 1.6 10^3/uL (1.5-3.5); LYMPHOCYTES % (AUTO) 16.7 %; MEAN CORPUSCULAR HGB CONC 32.2 g/dL (32.0-36.0); MEAN PLATELET VOLUME 12.5 fL (7.9-10.8); MONOCYTES # (AUTO) 0.5 10^3/uL (0.0-1.0); NEUTROPHILS # (AUTO) 7.3 10^3/uL (1.5-6.6); NEUTROPHILS % (AUTO) 76.5 %; PLT - PLATELET COUNT 257 10^3/uL (130-450); RED BLOOD COUNT 4.46 10^6/uL (4.20-5.40); RED CELL DISTRIBUTION WIDTH 13.9 % (12.0-15.0); WHITE BLOOD COUNT 9.5 x10^3/uL (4.8-10.8)
--- NOTE | 2023-12-11 16:11 | HISTORY & PHYSICAL EXAMINATION ---
Admit History - Smoking Status: Never smoker - Mother's Labs Mother's Blood Type: positive: A Mother's RH: positive: Positive GBS: positive: Group B Step Negative Rubella Status: positive: Immune - Other Maternal History Other Maternal History: HPI: Patient is a 28-year-old -0-2-0 at 39 weeks 0 days gestation presents today for induction of labor. She has gestational diabetes and elevated blood pressures today in clinic, but not meeting criteria for gestational hypertension. She says she is feeling uncomfortable and agrees to induction. She has good movement. Denies loss of fluid. No ROGERS/BV or RUQP. No vaginal bleeding. Denies nausea and vomiting. Denies urinary urgency or dysuria. All other symptoms reviewed and were negative except per HPI. Course c/b: 1. Asthma -- Recent inhaler use with URI --Lungs clear 2. encouraged dental visit & work -- discussed in detail. 3. anxiety / depression / unstable housing / supported by parents / PTSD -- mood check each visit -- working on coping mechanisms, historically using X stitch, reading, writing, music (listening and singing) 4. A2GDM --Started metforming 1000mg. 5. Elevated blood pressure without diagnosis of hypertension. 6. History of PFO close spontaneously. LMP: 03/06/2023 OTILIO by LMP:12/11/2023 Initial U/S: FINAL OTILIO:12/18/2023 Pre- Weight: BMI: Blood type A+ Antibody Negative CBC: PLT 385 HCT 39.1 HGB 12.5 RUB:immune VZV:immune HBsAg Non reactive HepC ordered 11/13 RPR/AB-EIA:Non reactive HIV:Negative PAP: 05/19/23 normal GC/CT:Negative HSV: denies self/partner Genetic testing: ordered 03 july - normal Covid: allergic to vaccine Flu: allergic to vaccine RSV: 11/06/2023 FAS: wnl @ 19w Placenta: anterior EFW: 61%ile 50gm OGCT: A1c- 5.3 05/15/23( EARLY GTT)09/05- 1HR GTT 132 11/05- 178 A1c-5.7 PROFILING TDAP:09/23 Breast Pump:has 2 3rd trimester H/H 10.9/33.2 PLT 330 GBS: Negative Delivery plan: IOL today. Contraception: OCPs PMH Asthma PCOS PSH Laparoscopic appendectomy Tonsillectomy Eustachian tubes D&C for miscarriage at 16 weeks OB History -0-2-0 1. Miscarriage: 16 weeks SH Denies tobacco, alcohol, drugs. Previous smoker. Family History Noncontributory Allergies Penicillin: Shortness of breath Medications Metformin 1000 mg daily Albuterol as needed vitamins Physical exam: General: Alert, oriented, no acute distress Head: Normal cephalic atraumatic Eyes: PERRLA, extraocular motions intact. Respiratory: Normal rate of respiration. No accessory muscle use, normal respiratory effort. Cardiovascular: Regular rate and rhythm Abdomen: Gravid, nontender, nondistended Extremities: Normal range of motion Neuro: Oriented x3. Normal movements Psych: Appropriate mood and affect. Normal judgment and insight SVE: 1.5/20/-3 FHT: 140 bpm baseline, moderate variability, accelerations present, no decelerations. [place]: Approximately 5 minutes with irritability Plan 28-year-old 9 weeks gestation 1. Induction of labor -Admit to L&D, admit labs, anticipate AROM, anticipate -Misoprostol 25 mcg buccal week every 4 hours 2. Gestational diabetes: -Well-controlled on metformin glucose 73 currently. Will continue to monitor -Glucose checks every 4 hours 3. Elvated blood pressure -concern for gestational hypertension. -Labs normal, but will check protein if blood pressure elevated again. 4.History of PFO -Likely normal. Self-resolved. - HPI Current [facility] 12/18/23 Gestation 39 Weeks and 0 Days 1 Vital Signs Temperature 98.2 F 12/11/23 14:49 Temperature 98.2 F 12/11/23 14:49 Heart Rate Respiratory Rate Blood Pressure O2 Saturation If not protocol: Oxygen Flow, liters/minute - NST Procedure NST Procedure Start Time 19:11 Stop Time 20:10 Meds/Allgy - Home Medications Home Medications: Ambulatory Orders Medication Instructions Recorded Confirmed Doxycycline Hyclate 100 mg PO BID #14 tablet. 05/31/20 predniSONE [Prednisone] 40 mg PO QDAC #8 tablet 05/31/20 Albuterol 2.5 mg INH Q4H PRN #30 ml 01/31/21 Albuterol Sulf [Ventolin Hfa 1 - 2 puffs INH Q4HR PRN #1 inhaler 01/31/21 Inhaler] Cefdinir 300 mg PO BID #20 01/31/21 predniSONE [Deltasone] 10 mg PO ONCE #26 tablet 01/31/21 - Allergies Allergies/Adverse Reactions: Allergies Allergy/AdvReac Type Severity Reaction Status Date / Time Penicillins Allergy Rash Verified 01/31/21 20:42 Physical - Abdominal Exam Vital Signs: Temp Pulse Resp BP Pulse Ox O2 Flow Rate 98.2 F 12/11/23 14:49 Plan for Labor - Plan For Labor I expect patient to be DC'd or transferred within 96 hours.: Yes
[2023-12-11 16:22] LABS: ALBUMIN 3.6 g/dL (3.2-5.5); ALBUMIN/GLOBULIN RATIO 1.1 (1.0-2.2); BILIRUBIN,TOTAL 0.4 mg/dL (0.2-1.0); CALCIUM 9.9 mg/dL (8.5-10.3); CREATININE 0.5 mg/dL (0.6-1.3); POTASSIUM 3.8 mmol/L (3.5-4.5)
[2023-12-11] MEDS: miSOPROStoL 100 MCG TABLET BC SCH ×2 (17:20→22:02)
--- NOTE | 2023-12-12 03:07 | PROVIDER PROGRESS NOTE ---
Labor Progress Note - Uterine Monitoring Uterine Monitoring Mode: positive: External toco Contraction Intensity: positive: Moderate - Monitoring Monitor Mode: positive: External ultrasound Heart Rate Baseline: 150 Accelerations: positive: Absent Decelerations: positive: None Strip Review: positive: Category I - Vaginal Exam Dilation (in cm): 3 Effacement (%): 50 Station: -3 - Labor Progress Note Labor Progress Note/Additional Text: Misoprostol held for period of minimal variability, but currently moderate. Irregular contraction pattern where they will space out then have periods of 1-3 minutes. Will start low dose oxytocin when able to normalize contraction pattern.
[2023-12-12] MEDS: OXYTOCIN/SODIUM CHLORIDE 500 ML IV SCH (05:34)
[2023-12-12] MEDS: LACTATED RINGERS 1,000 ML IV SCH ×3 (06:00→22:28)
[2023-12-12] MEDS: SODIUM CHLORIDE FLUSH 0.9% 10 ML SYRINGE IVP SCH ×2 (07:46→15:28)
[2023-12-12] MEDS ORDERED: metFORMIN 500 MG TABLET PO SCH (08:52)
[2023-12-12] MEDS ORDERED: ROPIVACAINE 0.2% 200 MG/100 ML BAG EP ONE (14:49)
--- NOTE | 2023-12-12 15:10 | PROVIDER PROGRESS NOTE ---
Labor Progress Note - Uterine Monitoring Uterine Monitoring Mode: positive: External toco Contraction Frequency (min/apart): 2-3 Contraction Intensity: positive: Mild, Moderate Uterine Resting Tone: positive: Soft - Monitoring Monitor Mode: positive: External ultrasound Heart Rate Baseline: 130 Heart Rate Variability: positive: Moderate (6-25 bmp) Accelerations: positive: Present, 15x15 Decelerations: positive: Late Strip Review: positive: Category II - Vaginal Exam Dilation (in cm): 3 Effacement (%): 0 Station: -3 Cervical Position: Posterior - Labor Progress Note Labor Progress Note/Additional Text: 28yo G1 for IOL 2'2 FWB - cat 2, though reassuring IOL -- fatuma too frequently for miso and on pit of 7 does not tolerate vaginal exams will hold pit get epidural and place borges bulb discussed above with patient, all questions answered ammenable to plan. 1. Asthma -- asymptomatic 2. encouraged dental visit & work 3. anxiety / depression / unstable housing / supported by parents / PTSD -- epidural and sleep recommended. 4. A2GDM -- continue metformin while in labor 5. Elevated blood pressure without diagnosis of hypertension. -- currently none in severe range. 6. History of PFO close spontaneously.
--- NOTE | 2023-12-12 16:59 | PROVIDER PROGRESS NOTE ---
Labor Progress Note - Uterine Monitoring Uterine Monitoring Mode: positive: External toco Contraction Frequency (min/apart): Q2-7 Contraction Intensity: positive: Moderate Uterine Resting Tone: positive: Soft - Monitoring Monitor Mode: positive: External ultrasound Heart Rate Baseline: 145 Heart Rate Variability: positive: Minimal (0-5 bpm), Moderate (6-25 bmp) Accelerations: positive: Present, 15x15 Decelerations: positive: None Strip Review: positive: Category I - Vaginal Exam Dilation (in cm): 3 Effacement (%): 0 Station: -3 - Labor Progress Note Labor Progress Note/Additional Text: Cook balloon placed 60cc / 60cc discussed with patient tolerated well.
--- NOTE | 2023-12-12 20:34 | ANESTHESIA ---
Pre-Anesthesia VS, & Labs - Diagnosis active labor - Procedure labor epidural Vital Signs: Temp Pulse Resp BP Pulse Ox O2 Flow Rate 37.3 C 16 118/69 96 12/12/23 20:22 12/12/23 20:22 12/12/23 20:22 12/12/23 20:22 Height: 5 ft 7 in Weight (kg): 102.512 kg Body Mass Index: 35.4 BMI Classification: Obese - NPO Other (clears) - Is Patient ?: Yes - Lab Results Current Lab Results: Laboratory Tests 12/12/23 20:04: POC Whole Bld Glucose 87 12/12/23 16:18: POC Whole Bld Glucose 77 12/12/23 11:48: POC Whole Bld Glucose 108 H 12/12/23 07:52: POC Whole Bld Glucose 97 12/12/23 03:07: POC Whole Bld Glucose 125 H 12/11/23 23:58: POC Whole Bld Glucose 109 H 12/11/23 21:15: POC Whole Bld Glucose 127 H 12/11/23 16:31: Blood Type Recheck A POSITIVE 12/11/23 15:35: Sodium 133 L, Potassium 3.8, Chloride 104, Carbon Dioxide 19 L, Anion Gap 10.0, BUN 11, Creatinine 0.5 L, Estimated GFR (MDRD) 147, Glucose 73 L , Calcium 9.9, Total Bilirubin 0.4, AST 11, ALT 7 L, Alkaline Phosphatase 152 H, Total Protein 7.0, Albumin 3.6, Globulin 3.4, Albumin/Globulin Ratio 1.1 12/11/23 15:35: WBC 9.5, RBC 4.46, Hgb 12.5, Hct 38.8, MCV 87.0, MCH 28.0, MCHC 32.2, RDW 13.9, Plt Count 257, MPV 12.5 H, Neut # (Auto) 7.3 H, Lymph # (Auto) 1.6, Stokes # (Auto) 0.5, Eos # (Auto) 0.1, Baso # (Auto) 0.0, Absolute Nucleated RBC 0.00, Nucleated RBC % 0.0 12/11/23 15:35: Blood Type A POSITIVE, Antibody Screen NEGATIVE Fish Bones: 12/11/23 15:35 12/11/23 15:35 Home Medications and Allergies Active Medications Carboprost Tromethamine (Carboprost Tromethamine 250 Mcg/Ml Amp) 250 mcg IM . ONCE PRN PRN Reason: Hemorrhage Fentanyl (Fentanyl 100 Mcg/2 Ml Vial) 50 mcg IVP Q1H PRN PRN Reason: Severe Pain (score 7-10) Hydralazine HCl (Hydralazine Inj 20 Mg/Ml Vial) 5 - 10 mg IVP Q20M PRN; Protocol PRN Reason: SBP> or= 160 OR DBP> or= 110 Hydralazine HCl (Hydralazine Inj 20 Mg/Ml Vial) 10 mg IVP .ONCE PRN; Protocol PRN Reason: SBP> or= 160 OR DBP> or= 110 Lactated Ringer's (Lr) 500 mls @ 999 mls/hr IV PRN PRN PRN Reason: PER PHYSICIAN ORDER Last Infusion: 12/12/23 02:00 Dose: Infused Oxytocin/Sodium Chloride (Pitocin/Sodium Chloride) 500 mls @ 999 mls/hr IV PRN PRN; Protocol PRN Reason: POST- HEMORR PREVENTION Tranexamic Acid (Tranexamic 1,000 Mg/100ml-Nacl) 1,000 mg in 100 mls @ 600 mls/hr IV Q30M PRN PRN Reason: EBL >1200mL and within 3hr Oxytocin/Sodium Chloride (Pitocin/Sodium Chloride) 500 mls @ 1 mls/hr IV TITR CASSY; Protocol Last Titration: 12/12/23 15:27 Dose: 0 milliunit/min, 0 mls/hr Lactated Ringer's (Lr) 1,000 mls @ 125 mls/hr IV .Q8H [facility] Last Admin: 12/12/23 14:25 Dose: 125 mls/hr Labetalol HCl (Labetalol 20 Mg/4 Ml Syringe) 20 - 80 mg IVP Q10M PRN; Protocol PRN Reason: SBP> or= 160 OR DBP> or= 110 Labetalol HCl (Labetalol 20 Mg/4 Ml Syringe) 20 mg IVP .ONCE PRN; Protocol PRN Reason: SBP> or= 160 OR DBP> or= 110 Labetalol HCl (Labetalol 20 Mg/4 Ml Syringe) 20 - 40 mg IVP Q10M PRN; Protocol PRN Reason: SBP> or= 160 OR DBP> or= 110 Lidocaine HCl (Lidocaine 1% 20 Ml Mdv) 20 ml ID .ONCE PRN PRN Reason: PERINEAL REPAIR Stop: 12/14/23 14:43 Metformin HCl (Metformin 500 Mg Tablet) 500 mg PO DAILY [facility] Methylergonovine Maleate (Methylergonovine 0.2 Mg/Ml Vial) 0.2 mg IM .ONCE PRN PRN Reason: Hemorrhage Misoprostol (Misoprostol 200 Mcg Tablet) 600 mcg BC .ONCE PRN PRN Reason: Hemorrhage Misoprostol (Misoprostol 200 Mcg Tablet) 800 mcg CO .ONCE PRN PRN Reason: Hemorrhage Nifedipine (Nifedipine 10 Mg Capsule) 10 - 20 mg PO Q20M PRN; Protocol PRN Reason: SBP> or= 160 OR DBP> or= 110 Oxytocin (Oxytocin 10 Unit/Ml Vial) 10 unit IM .ONCE PRN PRN Reason: Step One if no IV access. Sodium Chloride (Sodium Chloride Flush 0.9% 10 Ml Syringe) 10 ml IVP PRN PRN PRN Reason: NEEDED PER PROVIDER ORDERS Sodium Chloride (Sodium Chloride Flush 0.9% 10 Ml Syringe) 10 ml IVP Q8H [facility] Last Admin: 12/12/23 15:28 Dose: Not Given Terbutaline Sulfate (Terbutaline 1 Mg/Ml Vial) 0.25 mg SUBQ .ONCE PRN PRN Reason: Tachystole Allergies/Adverse Reactions: Allergies Allergy/AdvReac Type Severity Reaction Status Date / Time Penicillins Allergy Rash Verified 01/31/21 20:42 Anes History & Medical History - Anesthetic History Anesthesia Complications: reports: No previous complications - Medical History Cardiovascular: reports: None Pulmonary: reports: Asthma Gastrointestinal: reports: GERD Urinary: reports: None Neuro: reports: Migraines, Other Musculoskeletal: reports: None Endocrine/Autoimmune: reports: None Blood Disorders: reports: None Skin: reports: Eczema Smoking Status: Never smoker - Surgical History General: reports: Appendectomy Eyes Ears Nose Throat (EENT): reports: Tonsil/Adenoidectomy Exam General: Alert, Oriented x3, Cooperative Dental: WNL Mouth Opening: Greater than 4 Fingerbreadths Neck Mobility: Normal Mallampati classification: II Thyromental Distance: greater than 6 cm Respiratory: Lungs clear Cardiovascular: Regular rate Plan Anesthesia Type: Epidural Consent for Procedure(s) Verified and Reviewed: Yes Code Status: Attempt Resuscitation ASA classification: 2-Mild systemic disease Is this case an emergency?: No
[2023-12-12] MEDS ORDERED: ePHEDrine 50 MG/ML VIAL IVP PRN (23:19)
[2023-12-12] MEDS ORDERED: METOCLOPRAMIDE 10 MG/2 ML VIAL IVP PRN (23:19)
[2023-12-12] MEDS ORDERED: diphenhydrAMINE INJ 50 MG/ML VIAL IVP PRN (23:19)
[2023-12-12] MEDS ORDERED: NALBUPHINE 10 MG/ML AMP IVP PRN (23:19)
[2023-12-12] MEDS ORDERED: ONDANSETRON 4 MG/2 ML VIAL IVP PRN (23:19)
[2023-12-12] MEDS ORDERED: LACTATED RINGERS 500 ML IV ONE (23:19)
[2023-12-12] MEDS ORDERED: NALOXONE 0.4 MG/ML VIAL IVP PRN (23:19)
[2023-12-12] MEDS: ROPIVACAINE 0.2% 200 MG/100 ML BAG EP PRN (23:24)
[2023-12-12] MEDS: DEXTROSE 5%-0.9% NACL 1,000 ML IV SCH (23:26)
[2023-12-13] MEDS ORDERED: fentaNYL 100 MCG/2 ML VIAL ONE ×2 (04:27→16:54)
[2023-12-13] MEDS ORDERED: LIDOCAINE-MPF 2% 5 ML VIAL ONE ×2 (04:28→16:55)
[2023-12-13] MEDS: OXYTOCIN/SODIUM CHLORIDE 500 ML IV SCH (06:42)
[2023-12-13] MEDS: ROPIVACAINE 0.2% 200 MG/100 ML BAG EP PRN ×3 (07:16→18:04)
[2023-12-13] MEDS: DEXTROSE 5%-0.9% NACL 1,000 ML IV SCH ×2 (07:17→15:29)
--- NOTE | 2023-12-13 08:43 | PROVIDER PROGRESS NOTE ---
Labor Progress Note - Uterine Monitoring Uterine Monitoring Mode: positive: External toco Contraction Frequency (min/apart): Q7 - irregular Contraction Intensity: positive: Mild Uterine Resting Tone: positive: Soft - Monitoring Monitor Mode: positive: External ultrasound Heart Rate Baseline: 140 Heart Rate Variability: positive: Moderate (6-25 bmp) Accelerations: positive: Present, 15x15 Decelerations: positive: None Strip Review: positive: Category I - Vaginal Exam Dilation (in cm): 5 Effacement (%): 50 Station: -3 Cervical Position: Midposition - Labor Progress Note Labor Progress Note/Additional Text: Pt is now dilated to 5cms though head not in pelvis -- c/w borges bulb cervical dilation. will continue to titrate pit -- and lots of position changes -- noting tolerance as that has been a challenge on pitocin previously. has had epidural re-bolused overnight and is now on continuous drip. discussed correlating expectations of pain.
[2023-12-13] MEDS: metFORMIN 500 MG TABLET PO SCH ×2 (09:30→09:33)
[2023-12-13] MEDS: SODIUM CHLORIDE FLUSH 0.9% 10 ML SYRINGE IVP SCH ×3 (09:31→15:30)
[2023-12-13] MEDS: LACTATED RINGERS 1,000 ML IV SCH ×3 (09:33→21:37)
--- NOTE | 2023-12-13 15:08 | PROVIDER PROGRESS NOTE ---
Labor Progress Note - Uterine Monitoring Uterine Monitoring Mode: positive: External toco Contraction Frequency (min/apart): Q2 Contraction Intensity: positive: Mild to moderate Uterine Resting Tone: positive: Soft - Monitoring Monitor Mode: positive: External ultrasound Heart Rate Variability: positive: Moderate (6-25 bmp) Accelerations: positive: Present, 15x15 Decelerations: positive: Late, Intermittent (<50% x20 min) Strip Review: positive: Category II - Vaginal Exam Dilation (in cm): 4 Effacement (%): 50 Station: -3 Cervical Position: Midposition - Labor Progress Note Labor Progress Note/Additional Text: AROM for clear fluid - copius head well applied IUPC placed after verbal consent continue to titrate pitocin recheck after >1h of adequate ctx
--- NOTE | 2023-12-13 17:32 | PROVIDER PROGRESS NOTE ---
Labor Progress Note - Uterine Monitoring Uterine Monitoring Mode: positive: IUPC Contraction Intensity: positive: Strong Uterine Resting Tone: positive: Soft Other Uterine Monitorin MVUs - Monitoring Monitor Mode: positive: External ultrasound Heart Rate Baseline: 140 Heart Rate Variability: positive: Minimal (0-5 bpm) Accelerations: positive: Absent Decelerations: positive: Late, Variable, Intermittent (<50% x20 min) Strip Review: positive: Category II (overall reassuring, applying O2.) - Vaginal Exam Dilation (in cm): 6 Effacement (%): 70 Station: -3 Cervical Position: Anterior - Labor Progress Note Labor Progress Note/Additional Text: rebolused again with epidural has SCDs on now in active labor FWB overall reassuring, continue intrauterine rescussitative measures. no descent -- though now active labor. recheck Q2h and PRN. mood improved.
--- NOTE | 2023-12-13 18:59 | PROVIDER PROGRESS NOTE ---
Labor Progress Note - Uterine Monitoring Uterine Monitoring Mode: positive: IUPC Contraction Frequency (min/apart): Q3 Contraction Intensity: positive: Moderate Uterine Resting Tone: positive: Soft - Monitoring Monitor Mode: positive: External ultrasound Heart Rate Baseline: 140 Heart Rate Variability: positive: Minimal (0-5 bpm), Moderate (6-25 bmp) Accelerations: positive: Absent Strip Review: positive: Category I - Vaginal Exam Dilation (in cm): 8 Effacement (%): 90 Station: -2 Cervical Position: Anterior - Labor Progress Note Labor Progress Note/Additional Text: making progress uncomfortable coping mechanisms reviewed anticipate continue Q1h checks RT and peds at delivery.
[2023-12-13] MEDS ORDERED: ONDANSETRON 4 MG/2 ML VIAL IVP PRN (22:47)
[2023-12-13] MEDS ORDERED: ONDANSETRON ODT 4 MG TABLET TL PRN (22:47)
[2023-12-13] MEDS ORDERED: LACTATED RINGERS 1,000 ML IV PRN (22:47)
[2023-12-13] MEDS ORDERED: WITCH HAZEL/GLYCERIN 1 PAD TOP PRN (22:47)
--- NOTE | 2023-12-13 22:57 | DELIVERY NOTE ---
Delivery Note - Labor Labor: positive: Induced by oxytocin - Infant Delivery Method Delivery Method: positive: Spontaneous vaginal delivery - Cervical Ripening Method Cervical Ripening Method: positive: Balloon device, Misoprostil, Oxytocin - Presentation Presentation: positive: Vertex - Nuchal Cord Nuchal Cord: positive: Present - Anesthetic Anesthetic: positive: Lidocaine - 1% plain Volume: positive: 5cc - Amniotic Fluid Description Amniotic Fluid Description: positive: Clear - Episiotomy Type Episiotomy Type: positive: None - Laceration Laceration: positive: 3rd degree, Perineal - Suture Suture Type: positive: Vicryl Suture Size: positive: 2-0, 3-0 - Delivery Outcome Delivery Outcome: positive: Livebirth - [place]: positive: Placed in direct skin contact with mother, Suctioned, Stimulated, Warmed, Other (handed quickly to awaiting x ray service engineer.) - Cord Cord: positive: 3 vessels - Placenta Placenta: positive: Intact, Spontaneous, Other (palpated warm, cultures taken x2. [place]) - Estimated Blood Loss Estimated Blood Loss (in cc): 200 (QBL) - Post Delivery Events Post Delivery Events: positive: No post delivery events - Delivery Comments (Free Text/Narrative) Delivery Comments (Free Text/Narrative): On 13 Dec 2023 At 2202 patient delivered a viable male infant over intact perineum under epidural analgesia. Baby ROT, tight nuchal delivered through, L shoulder anterior, shoulders and body delivered without difficulty once awaiting maternal contraction / effort as head was delivered at end of contraction. Baby placed skin to skin, and then appeared floppy so cord was clamped and cut and baby was handed to awaiting x ray service engineer. Apgars 7/9. Cord gasses sent. Perineum inspected, partial 3' laceration identified. placenta delivered spontaneously at 2212, inspected, found to be intact with 3VC. Fundus firm with IV pit. Sphincter laceration repaired with 3.0 vicryl end-to-end interrupted sutures after injecting lidocaine. Remainder of laceration repaired with 2.0 vicryl rapide, hemostatic after repair. All counts correct. Baby was promptly returned to mom prior to completion of repair. Both mom and baby recovering well. Stage I: 2h17m Stage II: 2h33m Stage III: 10m
[2023-12-14] MEDS: IBUPROFEN 600 MG TABLET PO PRN ×4 (00:22→18:29)
[2023-12-14] MEDS: ACETAMINOPHEN 325 MG TABLET PO PRN ×5 (00:22→22:42)
[2023-12-14] MEDS: OXYTOCIN/SODIUM CHLORIDE 500 ML IV SCH (03:00)
[2023-12-14] MEDS: DOCUSATE SODIUM 100 MG CAPSULE PO SCH ×2 (12:29→22:42)
--- NOTE | 2023-12-14 15:16 | PROVIDER PROGRESS NOTE ---
Subjective - Prog Note Date Prog Note Date: 12/14/23 Prog Note Time: 15:14 - Subjective Pt reports feeling: Improved Subjective: Pt well, lochia appropriate, marixa PO, + void, + flat, + ambulation Feeding going well -- breast & supplementing VSS NAD Conjunctiva pink, pale sclera +S1, S2 CTAB Breasts soft, not engorged, no nipple cracking Abd soft, NT, ND Fundus firm below umbilicus Perineum: bleeding appropriate Ext: neg CC, +2 pitting edema, symmetrical. Objective - Vital Signs/Intake & Output Vital Signs: Vital Signs x48h Temp Pulse Resp BP Pulse Ox 12/14/23 10:00 98.1 F 60 16 136/72 H 97 Intake & Output: Intake & Output 12/11/23 12/12/23 12/13/23 12/14/23 23:59 23:59 23:59 23:59 Intake Total 2950.883 4745.250 986 Output Total 803 1800 350 Balance 2147.883 2945.250 636 - Lab Results Fish Bones: 12/11/23 15:35 12/11/23 15:35 Other Labs: Lab Results x24hrs 12/13/23 12/13/23 12/13/23 Range/Units 21:32 20:30 19:10 POC Whole Bld Glucose 128 H 98 94 (70 - 100) mg/dL 12/13/23 12/13/23 Range/Units 18:09 16:03 POC Whole Bld Glucose 85 99 (70 - 100) mg/dL Assessment/Plan - Problem List (1) Normal labor and delivery Impression: resolved, continue to advance (2) Gestational diabetes Impression: baby still getting sugar checked resolved check again after 40d (3) Partial by mother Impression: continue to support mother and grandmother reluctant to receive advice due to patient "already having a consultalt" and "actually having two" (4) Anxiety Impression: high risk of post depression, reviewed with patient and her family (5) state Impression: continue to advance anticipate D/C home tomorrow pending baby wellness (6) Third degree laceration of perineum, type 3b Impression: on stool softeners, discussed this with patient yesterday.
[2023-12-15] MEDS: IBUPROFEN 600 MG TABLET PO PRN ×2 (00:39→11:01)
[2023-12-15] MEDS: ACETAMINOPHEN 325 MG TABLET PO PRN ×2 (02:42→10:59)
--- NOTE | 2023-12-15 08:37 | DISCHARGE SUMMARY ---
Discharge Summary Admit Date: 12/11/23 Discharge Date: 12/15/23 Discharging Provider: Ever Coker MD Code Status: Attempt Resuscitation Condition at Discharge: Good Discharge Disposition: 01 Home, Self Care - DIAGNOSES Admission Diagnoses: Gestational diabetes 39 weeks gestation Discharge Diagnoses with Status of Each Condition: Gestational diabetes 39 weeks gestation Delivery of live diaz Status post spontaneous vaginal delivery - HPI History of Present Illness: Subjective Patient reports she is doing well. Lochia appropriate. Denies heavy bleeding. Ambulating. Pelvic and abdominal pain well-controlled. Tolerating oral intake. Diet: Regular. Voiding without difficulty. Passing flatus. Denies BM. Patient is bonding with baby [in room] Breast feeding going well. Supplementing with formula Denies feeling lightheaded, dizzy or excessively fatigued. Objective General: Alert, oriented, no apparent distress. Cardiovascular: Regular rate. Regular rhythm. Lungs: No increased work of breathing. Abdomen: Uterus firm. Below umbilicus. No guarding or rebound. Extremities: No pain on palpation. No cords palpated. Distal pulses intact. - HOSPITAL COURSE Hospital Course: Patient was admitted at 39 weeks gestation for induction of labor secondary to gestational diabetes. She had 1 elevated blood pressure in clinic, but no sustained blood pressures. Labs were all normal. Induction was started with misoprostol. She then had oxytocin and received an IUPC for monitoring strength. She went to have a spontaneous vaginal delivery with third-degree laceration. course was unremarkable. She was sent home with docusate for 1 month and was discharged in good condition. - ALLERGIES Allergies/Adverse Reactions: Allergies Allergy/AdvReac Type Severity Reaction Status Date / Time Penicillins Allergy Rash Verified 01/31/21 20:42 - MEDICATIONS Home Medications: Ambulatory Orders Medication Instructions Recorded Confirmed Doxycycline Hyclate 100 mg PO BID #14 tablet. 05/31/20 predniSONE [Prednisone] 40 mg PO QDAC #8 tablet 05/31/20 Albuterol 2.5 mg INH Q4H PRN #30 ml 01/31/21 Albuterol Sulf [Ventolin Hfa 1 - 2 puffs INH Q4HR PRN #1 inhaler 01/31/21 Inhaler] Cefdinir 300 mg PO BID #20 01/31/21 predniSONE [Deltasone] 10 mg PO ONCE #26 tablet 01/31/21 Docusate Sodium 100Mg Capsule 100 mg PO BID #60 cap 12/15/23 [Colace 100Mg Capsule] Ibuprofen [Motrin] 600 mg PO Q6H PRN #30 tab 12/15/23 Ibuprofen [Motrin] 600 mg PO Q6H PRN #30 tab 12/15/23 - LABS Result Diagrams: 12/11/23 15:35 12/11/23 15:35 - FOLLOW UP Follow Up: [facility] - TIME SPENT Time Spent in Discharge (Minutes): 30
--- NOTE | 2023-12-15 08:37 | Discharge Plan ---
Discharge Plan Problem Reviewed?: Yes Disposition: Home, Self Care Condition: Good Prescriptions: Ibuprofen [Motrin] 600 mg PO Q6H PRN #30 tab PRN Reason: Abdominal Pain Activity Restrictions: No Restrictions Instruction Topics: Vaginal After, Depression No Smoking: If you smoke, Please STOP! Call for help. Follow-up with: Loyd Patel MD [Provider Admit Priv/Credential] -
[2023-12-15 08:58] VITALS: BP 131/84; O2SAT 98
--- NOTE | 2023-12-15 15:28 | Labor Flowsheet ---
Labor Flowsheet Datetime Report Generated by CPN: 12/15/2023 15:28 Datetime: 12/15/2023 08:12 VITAL SIGNS NBP Sys/Elle/Mean (mmHg): 132 : 81 : 92 Pulse: 75 LaborFlag: Labor Datetime: 12/14/2023 05:24 SpO2 (%): 98 Datetime: 12/14/2023 00:11 I/O Interventions: Up to BR Datetime: 12/13/2023 22:30 Respirations: 18 Datetime: 12/13/2023 22:15 Temperature (C): 37.1 Temperature Route: Oral Datetime: 12/13/2023 22:00 UTERINE ACTIVITY Monitor Mode: External Frequency (min): 1.5-2 Quality: Strong Duration (sec): 60-90 Resting Tone (Palpate): Relaxed ASSESSMENT A Monitor Mode: External US FHR Baseline Rate : 150 Variability: Moderate 6-25 bpm Accelerations: 15X15 Decelerations: Early Category: Category II Datetime: 12/13/2023 21:50 Comments: RN reviewed strip Datetime: 12/13/2023 21:49 Pushing Progress: with Pushing Datetime: 12/13/2023 21:35 Medication Comments: MD requests D5NS to be discontinues and LR infusion at 125 to start Datetime: 12/13/2023 21:30 FHR Baseline Changes: No Baseline Change Datetime: 12/13/2023 21:25 Station: 1 Datetime: 12/13/2023 21:00 Pattern: Normal: <= 5 Contractions in 10 Minutes Datetime: 12/13/2023 20:34 Monitor Interventions for UA: [place] Adjusted Contraction Comments: IUPC removed by Dr. Patel Datetime: 12/13/2023 20:30 Resting Tone IUP (mmHg): 20 Intensity IUP (mmHg): 40-70 Datetime: 12/13/2023 20:13 Patient Care Comments: pt vomiting Datetime: 12/13/2023 19:49 STAGE 2 Pushing: Coached on Pushing Datetime: 12/13/2023 19:40 COMMUNICATION Communication: RN at Bedside Communication Comments: RN remainig at bedside Datetime: 12/13/2023 19:35 VAGINAL EXAM Dilatation (cm): 10.0 Exam by: Milton, RN Pushing Position: Pushing with Contractions Datetime: 12/13/2023 18:53 Antiemetics/Antacids: Zofran (mg) @ 4 Datetime: 12/13/2023 18:45 Patient Position/Activity: Right Lateral Datetime: 12/13/2023 18:39 Effacement (%): 90 Datetime: 12/13/2023 18:00 [place] Units (mmHg): 210 Datetime: 12/13/2023 16:59 Epidural Procedure Other: Redose Anesthesia Comments: M. Aube Datetime: 12/13/2023 14:44 Membrane Status: Intact Membranes Rupture Method: Artificial Amniotic Fluid Color: Clear Amniotic Fluid Amount: Copious Amniotic Fluid Odor: Normal Datetime: 12/13/2023 13:15 Vaginal Bleeding: None Cervix, Consistency: Firm Cervix, Position: Midposition Datetime: 12/13/2023 11:27 Actions for Decelerations: Side to Side Datetime: 12/13/2023 10:07 Monitor Interventions for FHR: Ultrasound Adjusted Datetime: 12/13/2023 07:10 Cervical Ripening Agents Other: CRB Removed by Dr. Patel with gentle traction Datetime: 12/13/2023 06:21 Notification Reason: Status Update Datetime: 12/13/2023 05:34 Anesthesia Level Check: T10- Umbilicus Datetime: 12/13/2023 05:07 PAIN Pain Scale: 4 Pain Presence: Intermittent Pain Type: Cramping; Ache Pain Location: Abdomen; Back Datetime: 12/13/2023 04:31 Anesthesia Interventions Other: Other Datetime: 12/13/2023 03:42 Provider Notified (Name): M Nemo Datetime: 12/13/2023 02:55 Pain Coping: Sleeping Datetime: 12/13/2023 00:50 Provider Reviewed Strip: Yes Strip Reviewed by: Dr Chelo Datetime: 12/12/2023 23:17 MEDICATIONS Pitocin (milliunits): Decreased to @ 250 Datetime: 12/12/2023 22:41 PATIENT CARE IV/Blood Work: New IV Bag Hung Datetime: 12/12/2023 21:43 Comfort Measures: Breathing/Relaxation Datetime: 12/12/2023 20:11 Bedside Blood Glucose: 87 MATERNAL ASSESSMENT Level of Consciousness: Alert DTR's/Clonus: DTRs 1+ Headache: Denies Breath Sounds, Left: Clear and Equal Breath Sounds, Right: Clear and Equal Nausea/Vomiting: Denies RUQ Epigastric Pain: Denies Datetime: 12/12/2023 19:00 Oxygen Method: Room Air Datetime: 12/12/2023 18:38 Pain Assessment Comments: Has been able to sleep, now watching TV on phone Datetime: 12/12/2023 16:26 Pain Relief Measures: Epidural Given Datetime: 12/12/2023 15:11 Epidural Procedure: Test Dose Datetime: 12/12/2023 15:02 PROCEDURE TIME OUT Procedure Verify: Correct Patient Identity; Correct Side and Site are Marked; Accurate Procedure Co nsent Form; Agreement on Procedure to be Done; Correct Patient Position ANESTHESIA Epidural Positioning: Sitting Datetime: 12/12/2023 14:30 Stage of : Labor Datetime: 12/12/2023 14:00 MONTE[place] UNITS (Computed) Contractions in Ten Minutes: 6 Datetime: 12/12/2023 13:40 Pitocin Checklist: No More than 1 Late Deceleration Occurred in Past 30 Minutes; No More than 2 [place]ney iable Decelerations > 60 Seconds in Duration and decreasing >60 bpm in 30 minutes; No More than 5 [place] Contractions in 10 Minutes for any 20 Minute Interval Datetime: 12/11/2023 22:03 Cervical Ripening Agents: Pham Balloon; Cytotec @ Datetime: 11/26/2023 20:07 Membranes Ruptured Date/Time: 12/13/2023 14:44 Datetime: 11/14/2023 22:47 Vaginal Exam Comments: Closed internal os Datetime: 11/14/2023 19:14 Procedures: Cultures Taken
== END 2023-12-15 14:43 | disposition home or self-care (01) | DRG 768 ==
LOC: WFO 14:25 → FBP 14:26 → WFO 18:27 → OBSVTOIN 12-12 06:11
PROVIDERS: ADMIT Obstetrics & Gynecology; ATTEND Obstetrics & Gynecology
PROC: 0U7C7ZZ Dilation of Cervix, Via Natural or Artificial Opening (ICD-10-PCS; 2023-12-12)
PROC: 3E033VJ Introduction of Other Hormone into Peripheral Vein, Percutaneous Approach (ICD-10-PCS; 2023-12-12)
PROC: 0DQR0ZZ Repair Anal Sphincter, Open Approach (ICD-10-PCS; principal; 2023-12-13)
PROC: 10E0XZZ Delivery of Products of Conception, External Approach (ICD-10-PCS; 2023-12-13)
PROC: 10907ZC Drainage of Amniotic Fluid, Therapeutic from Products of Conception, Via Natural or Artificial Opening (ICD-10-PCS; 2023-12-13)
DX: O24.425 Gestational diabetes mellitus in childbirth, controlled by oral hypoglycemic drugs (principal); Z37.0 Single live birth; O70.22 Third degree perineal laceration during delivery, IIIb; O99.344 Other mental disorders complicating childbirth; F41.9 Anxiety disorder, unspecified; F32.A Depression, unspecified; O69.81X0 Labor and delivery complicated by cord around neck, without compression, not applicable or unspecified; Z3A.39 39 weeks gestation of pregnancy; O99.52 Diseases of the respiratory system complicating childbirth; J45.909 Unspecified asthma, uncomplicated; O99.891 Other specified diseases and conditions complicating pregnancy; R03.0 Elevated blood-pressure reading, without diagnosis of hypertension; O99.214 Obesity complicating childbirth
CPT/HCPCS: 59409; 80053; 85025; 86850; 86900; 86901; 87070; 87075; 87186; 96360; A9270; G0378; J7120

== ENCOUNTER 2023-12-17 15:00 | Emergency (ER) | payer MEDICAID ==
[2023-12-17] MEDS ORDERED: ACETAMINOPHEN 325 MG TABLET PO STA (15:25)
--- NOTE | 2023-12-17 15:34 | ED Physician Documentation ---
History of Present Illness - Stated complaint Stated Complaint: FEVER/HIGH BP/POST LABOR - Chief complaint Chief Complaint: General - History obtained from History obtained from: Patient - History of Present Illness Timing: Today Pain level max: 2 Pain level now: 2 - Additonal information Additional information: Patient is a 28-year-old female who is 4 days . She was discharged from the hospital 2 days ago. She states that at home today she had an elevated blood pressure. She reported the blood pressure is 153/88. She states that her temperature was 99.6 via temporal artery scan. She states that that is higher than her usual. Otherwise she has a very mild headache. Has not taken anything for this. No neck or back pain. No pelvic pain. She states there is no change in her bleeding or discharge. She states that she did have 1 elevated blood pressure reading during but never needed treatment or medication. Patient was induced. Had a vaginal delivery. Has a history of migraines. Review of Systems Constitutional: denies: Fever, Chills Nose: denies: Rhinorrhea / runny nose, Congestion : denies: Dysuria Skin: denies: Rash Musculoskeletal: denies: Neck pain, Back pain Neurologic: denies: Head injury, LOC PD PAST MEDICAL HISTORY - Past Medical History Cardiovascular: None Respiratory: Asthma Neuro: Migraines, Other Endocrine/Autoimmune: None GI: GERD DESIGN TECH: None : None HEENT: None Psych: Post traumatic stress disorder Musculoskeletal: None Derm: Eczema - Past Surgical History Past Surgical History: Yes General: Appendectomy HEENT: Tonsil/Adenoidectomy - Present Medications Home Medications: Ambulatory Orders Medication Instructions Recorded Confirmed Albuterol 2.5 mg INH Q4H PRN #30 ml 01/31/21 Ibuprofen [Motrin] 600 mg PO Q6H PRN #30 tab 12/15/23 Labetalol [Trandate] 100 mg PO BID #60 tablet 12/17/23 - Allergies Allergies/Adverse Reactions: Allergies Allergy/AdvReac Type Severity Reaction Status Date / Time Penicillins Allergy Rash Verified 12/17/23 15:13 - Social History Does the pt smoke?: No Smoking Status: Never smoker Does the pt drink ETOH?: Yes Does the pt have substance abuse?: No - Immunizations Immunizations are current?: Yes - POLST Patient has POLST: No PD ED PE NORMAL - Vitals Vital signs reviewed: Yes - General General: Alert and oriented X 3, No acute distress - HEENT HEENT: Atraumatic, PERRL, Ears normal, Moist mucous membranes - Neck Neck: Supple, no meningeal sign - Cardiac Cardiac: RRR, Strong equal pulses - Respiratory Respiratory: No respiratory distress, Clear bilaterally - Abdomen Abdomen: Soft, Non tender, Non distended - Derm Derm: Warm and dry - Extremities Extremities: No edema - Neuro Neuro: Alert and oriented X 3 - Psych Psych: Normal mood, Normal affect Results - Vitals Vitals: Vital Signs - 24 hr 12/17/23 12/17/23 12/17/23 15:08 15:19 15:48 Temperature 36.4 C L Heart Rate 94 83 Respiratory 16 18 18 Rate Blood Pressure 149/88 H 146/79 H O2 Saturation 100 98 12/17/23 12/17/23 12/17/23 16:02 16:16 16:51 Temperature Heart Rate 76 79 85 Respiratory 18 18 18 Rate Blood Pressure 160/82 H 136/74 H 146/74 H O2 Saturation 97 96 97 12/17/23 12/17/23 12/17/23 17:33 18:22 19:15 Temperature Heart Rate 66 76 85 Respiratory 18 18 16 Rate Blood Pressure 158/76 H 158/74 H 149/82 H O2 Saturation 98 97 97 12/17/23 12/17/23 12/17/23 19:30 20:00 20:45 Temperature Heart Rate 74 94 89 Respiratory 17 17 17 Rate Blood Pressure 152/80 H 157/82 H 144/67 H O2 Saturation 97 100 94 12/17/23 12/17/23 21:00 21:18 Temperature Heart Rate 92 105 H Respiratory 16 16 Rate Blood Pressure 142/70 H 142/80 H O2 Saturation 94 96 Oxygen O2 Source Room air - Labs Labs: Laboratory Tests 12/17/23 12/17/23 12/17/23 15:27 15:27 15:30 WBC 11.5 H RBC 3.26 L Hgb 9.3 L Hct 28.8 L MCV 88.3 MCH 28.5 MCHC 32.3 RDW 14.1 Plt Count 245 MPV 10.7 Neut # (Auto) 9.6 H Lymph # (Auto) 1.1 L [place] # (Auto) 0.5 Eos # (Auto) 0.2 Baso # (Auto) 0.0 Absolute Nucleated RBC 0.00 Nucleated RBC % 0.0 Sodium 138 Potassium 3.7 Chloride 104 Carbon Dioxide 26 Anion Gap 8.0 BUN 12 Creatinine 0.7 Estimated GFR (MDRD) 100 Glucose 82 Calcium 8.9 Magnesium 1.4 L Total Bilirubin 0.3 AST 13 ALT 11 Alkaline Phosphatase 109 Total Protein 6.5 Albumin 3.2 Globulin 3.3 Albumin/Globulin Ratio 1.0 Lipase 18 Urine Color YELLOW Urine Clarity HAZY Urine pH 6.0 Ur Specific [place] 1.020 Urine Protein TRACE Urine Glucose (UA) NEGATIVE Urine Ketones NEGATIVE Urine Occult Blood LARGE H Urine Nitrite NEGATIVE Urine Bilirubin NEGATIVE Urine Urobilinogen 0.2 (NORMAL) Ur Leukocyte Esterase SMALL H Urine RBC TNTC H Urine WBC 11-25 H Ur Squamous Epith Cells RARE Squamous Urine Bacteria Many H Ur Microscopic Review INDICATED Urine Culture Comments INDICATED Urine Creatinine Ur Total Protein Timed Protein/Creatinin Ratio 12/17/23 12/17/23 15:30 17:32 WBC RBC Hgb Hct MCV MCH MCHC RDW Plt Count MPV Neut # (Auto) Lymph # (Auto) [place] # (Auto) Eos # (Auto) Baso # (Auto) Absolute Nucleated RBC Nucleated RBC % Sodium Potassium Chloride Carbon Dioxide Anion Gap BUN Creatinine Estimated GFR (MDRD) Glucose Calcium Magnesium Total Bilirubin AST ALT Alkaline Phosphatase Total Protein Albumin Globulin Albumin/Globulin Ratio Lipase Urine Color Urine Clarity Urine pH Ur Specific [place] Urine Protein Urine Glucose (UA) Urine Ketones Urine Occult Blood Urine Nitrite Urine Bilirubin Urine Urobilinogen Ur Leukocyte Esterase Urine RBC Urine WBC Ur Squamous Epith Cells Urine Bacteria Ur Microscopic Review Urine Culture Comments Urine Creatinine 59.3 40.6 Ur Total Protein Timed 41 5 Protein/Creatinin Ratio 0.7 H 0.1 PD Medical Decision Making - ED course Complexity details: reviewed results, re-evaluated patient, considered differential, d/w patient, d/w financial reporting consultant ED course: At 1522, I contacted Dr. Patel, OB on-call, she recommends CBC, CMP, urine protein to creatinine ratio. Recommends Tylenol for headache. Recommends blood pressures every 15 minutes. She does not recommend any magnesium, labetalol or any other treatment at this time. Rediscussed the case with Dr. Whitney at 1630. Reviewed the lab findings including the elevated spot protein to creatinine ratio. She will come to the emergency department to evaluate the patient. It was decided that the patient should have a catheterized urinalysis in order to obtain a more accurate protein to creatinine ratio. This was repeated and found to be normal. The patient was treated with nifedipine 10 mg orally, blood pressure decreased down to 140/70. Discussed again with OB, Dr. Patel recommends 100 mg of labetalol. This was given to the patient. The patient would like to go home tonight. She will follow-up with Dr. Patel in the office tomorrow morning. No headache. No vision changes. No shortness of breath. No edema. Patient counseled regarding signs and symptoms for which I believe and urgent re-evaluation would be necessary. Patient with good understanding of and agreement to plan and is comfortable going home at this time This document was made in part using voice recognition software. While efforts are made to proofread this document, sound alike and grammatical errors may occur. Departure - Departure Disposition: 01 Home, Self Care Clinical Impression: Hypertension Qualifiers: Hypertension type: unspecified Qualified Code(s): I10 - Essential (primary) hypertension Condition: Stable Instructions: ED Hypertension Poss Follow-Up: Loyd Patel MD [Provider Admit Priv/Credential] - Tomorrow Prescriptions: Labetalol [Trandate] 100 mg PO BID #60 tablet Comments: Your prescription was sent to [facility] pharmacy. Please pick this up in the morning. Please follow-up with Dr. Patel tomorrow as scheduled. Please return if you worsen. Forms: PCP List Discharge Date/Time: 12/17/23 21:19
[2023-12-17 15:38] LABS: BASOPHILS % (AUTO) 0.2 %; EOSINOPHILS # (AUTO) 0.2 10^3/uL (0.0-0.7); EOSINOPHILS % (AUTO) 1.9 %; HCT - HEMATOCRIT 28.8 % (37.0-47.0); HGB - HEMOGLOBIN 9.3 g/dL (12.0-16.0); LYMPHOCYTES # (AUTO) 1.1 10^3/uL (1.5-3.5); LYMPHOCYTES % (AUTO) 9.7 %; MEAN CORPUSCULAR HEMOGLOBIN 28.5 pg (27.0-31.0); MEAN CORPUSCULAR HGB CONC 32.3 g/dL (32.0-36.0); MEAN CORPUSCULAR VOLUME 88.3 fL (81.0-99.0); MEAN PLATELET VOLUME 10.7 fL (7.9-10.8); MONOCYTES # (AUTO) 0.5 10^3/uL (0.0-1.0); MONOCYTES % (AUTO) 4.6 %; NEUTROPHILS # (AUTO) 9.6 10^3/uL (1.5-6.6); NEUTROPHILS % (AUTO) 83.3 %; PLT - PLATELET COUNT 245 10^3/uL (130-450); RED BLOOD COUNT 3.26 10^6/uL (4.20-5.40); RED CELL DISTRIBUTION WIDTH 14.1 % (12.0-15.0); WHITE BLOOD COUNT 11.5 x10^3/uL (4.8-10.8)
[2023-12-17 15:47] LABS: BILIRUBIN,URINE NEGATIVE (NEGATIVE); GLUCOSE, URINE (UA) NEGATIVE (NEGATIVE); KETONES,URINE (UA) NEGATIVE (NEGATIVE); LEUKOCYTE ESTERASE, URINE SMALL (NEGATIVE); NITRITE,URINE NEGATIVE (NEGATIVE); OCCULT BLOOD,URINE LARGE (NEGATIVE); PROTEIN,URINE TRACE mg/dL (NEGATIVE); UROBILINOGEN,URINE 0.2 (NORMAL) E.U./dL (NORMAL)
[2023-12-17 15:52] LABS: ALBUMIN 3.2 g/dL (3.2-5.5); BILIRUBIN,TOTAL 0.3 mg/dL (0.2-1.0); CALCIUM 8.9 mg/dL (8.5-10.3); CREATININE 0.7 mg/dL (0.6-1.3); MAGNESIUM 1.4 mg/dL (1.7-2.3); POTASSIUM 3.7 mmol/L (3.5-4.5); TOTAL PROTEIN 6.5 g/dL (6.4-8.9)
[2023-12-17 15:56] LABS: CLARITY,URINE HAZY (CLEAR)
[2023-12-17 16:02] LABS: RBC,URINE TNTC /HPF (0-5); SQUAMOUS EPITHELIAL CELL,UR RARE Squamous (<= Few)
[2023-12-17 16:03] LABS: BACTERIA,URINE Many /HPF (None Seen)
[2023-12-17 16:24] LABS: CREATININE,URINE 59.3 mg/dL; PROTEIN/CREATININE RATIO,URINE 0.7 (<=0.2)
[2023-12-17 18:15] LABS: CREATININE,URINE 40.6 mg/dL; PROTEIN/CREATININE RATIO,URINE 0.1 (<=0.2)
[2023-12-17] MEDS ORDERED: NIFEdipine 10 MG CAPSULE PO STA (18:58)
[2023-12-17] MEDS ORDERED: LABETALOL 100 MG TABLET PO STA (20:28)
[2023-12-17] MEDS ORDERED: LABETALOL 100 MG TABLET PO ONE (21:00)
[2023-12-17 21:22] VITALS: BP 142/80; O2SAT 96
== END 2023-12-17 21:19 | disposition home or self-care (01) ==
LOC: ED 15:00
DX: O90.9 Complication of the puerperium, unspecified (principal); I10 Essential (primary) hypertension
CPT/HCPCS: 36415; 51701; 80053; 81001; 82570; 83690; 83735; 84156; 85025; 87086; 99283; 99284; A9270; 81003

== ENCOUNTER 2023-12-18 21:32 | Inpatient (IN) | payer MEDICAID ==
[2023-12-18] MEDS ORDERED: IBUPROFEN 600 MG TABLET PO STA (21:38)
[2023-12-18] MEDS: ACETAMINOPHEN 325 MG TABLET PO STA ×2 (22:00→22:06)
[2023-12-18] MEDS ORDERED: SODIUM CHLORIDE 0.9% IV STA (22:10)
[2023-12-18 22:45] LABS: BASOPHILS % (AUTO) 0.3 %; EOSINOPHILS # (AUTO) 0.2 10^3/uL (0.0-0.7); EOSINOPHILS % (AUTO) 1.5 %; HCT - HEMATOCRIT 27.2 % (37.0-47.0); HGB - HEMOGLOBIN 8.5 g/dL (12.0-16.0); LYMPHOCYTES # (AUTO) 0.9 10^3/uL (1.5-3.5); LYMPHOCYTES % (AUTO) 9.1 %; MEAN CORPUSCULAR HEMOGLOBIN 27.7 pg (27.0-31.0); MEAN CORPUSCULAR HGB CONC 31.3 g/dL (32.0-36.0); MEAN CORPUSCULAR VOLUME 88.6 fL (81.0-99.0); MEAN PLATELET VOLUME 10.9 fL (7.9-10.8); MONOCYTES # (AUTO) 0.5 10^3/uL (0.0-1.0); MONOCYTES % (AUTO) 5.1 %; NEUTROPHILS # (AUTO) 8.1 10^3/uL (1.5-6.6); NEUTROPHILS % (AUTO) 83.6 %; PLT - PLATELET COUNT 291 10^3/uL (130-450); RED BLOOD COUNT 3.07 10^6/uL (4.20-5.40); RED CELL DISTRIBUTION WIDTH 14.3 % (12.0-15.0); WHITE BLOOD COUNT 9.7 x10^3/uL (4.8-10.8)
[2023-12-18 22:54] LABS: ALBUMIN 3.3 g/dL (3.2-5.5); BILIRUBIN,TOTAL 0.3 mg/dL (0.2-1.0); CALCIUM 8.6 mg/dL (8.5-10.3); CREATININE 0.7 mg/dL (0.6-1.3); POTASSIUM 3.6 mmol/L (3.5-4.5); TOTAL PROTEIN 6.5 g/dL (6.4-8.9)
--- NOTE | 2023-12-18 22:54 | ED Physician Documentation ---
History of Present Illness - Stated complaint Stated Complaint: FEVER - Chief complaint Chief Complaint: Fever - History obtained from History obtained from: Patient - Additonal information Additional information: 28yF 6 days s/p vaginal delivery at [facility] c/by hypertension (now on home labetalol) p/w fever/chills yesterday and today with tmax 101.3 by forehead/tympanic thermometer today. denies uri sx, holman, n/v. does have loose stools but says she's taking stool softeners due to grade 3 perineal laceration. she is experiencing upper abdominal pain and midback pain. denies urinary sx. Lochia is light and denies foul smell. no prolonged rupture of membranes during her labor. patient is and states breasts have not been painful or red. PD PAST MEDICAL HISTORY - Past Medical History Cardiovascular: None Respiratory: Asthma Neuro: Migraines, Other Endocrine/Autoimmune: None GI: GERD DEVELOPMENT ANALYST: None : None HEENT: None Psych: Post traumatic stress disorder Musculoskeletal: None Derm: Eczema - Past Surgical History Past Surgical History: Yes General: Appendectomy HEENT: Tonsil/Adenoidectomy - Present Medications Home Medications: Ambulatory Orders Medication Instructions Recorded Confirmed Albuterol 2.5 mg INH Q4H PRN #30 ml 01/31/21 Ibuprofen [Motrin] 600 mg PO Q6H PRN #30 tab 12/15/23 Labetalol [Trandate] 100 mg PO BID #60 tablet 12/17/23 - Allergies Allergies/Adverse Reactions: Allergies Allergy/AdvReac Type Severity Reaction Status Date / Time Penicillins Allergy Rash Verified 12/18/23 21:42 - Social History Does the pt smoke?: No Smoking Status: Never smoker Does the pt drink ETOH?: Yes Does the pt have substance abuse?: No - Immunizations Immunizations are current?: Yes - POLST Patient has POLST: No PD ED PE NORMAL - Vitals Vital signs reviewed: Yes - General General: Alert and oriented X 3, No acute distress, Well developed/nourished - HEENT HEENT: Atraumatic, PERRL, EOMI, Moist mucous membranes, Pharynx benign - Neck Neck: Supple, no meningeal sign - Cardiac Cardiac: Other (tachycardic rate, regular rhythm) - Respiratory Respiratory: No respiratory distress, Clear bilaterally - Abdomen Abdomen: Non tender, Non distended, Other (discomfort to palpation diffusely) - Female Female : Eight Section Blower present (RN Dulci), Other (normal external female genitalia. pinkish lochia with foul smell. perineal sutures in place without clear evidence of wound site infection) - Derm Derm: Normal color, Warm and dry, Other (no breast erythema/no mastitis) Results - Vitals Vitals: Vital Signs - 24 hr 12/18/23 12/18/23 21:35 23:40 Temperature 37.4 C Heart Rate 105 H 70 Respiratory 16 18 Rate Blood Pressure 150/59 H 151/76 H O2 Saturation 98 95 Oxygen O2 Source Room air - EKG (time done) 2250 EKG releavant findings:: EKG personally interpreted by author of this note. Relevant findings are: Rate: Rate (enter#) (59) Rhythm: NSR [place]: Normal Intervals: Normal OK QRS: Normal Ischemia: Normal ST segments - Labs Labs: Laboratory Tests 12/18/23 12/18/23 12/18/23 22:27 22:27 22:27 WBC 9.7 RBC 3.07 L Hgb 8.5 L Hct 27.2 L MCV 88.6 MCH 27.7 MCHC 31.3 L RDW 14.3 Plt Count 291 MPV 10.9 H Neut # (Auto) 8.1 H Lymph # (Auto) 0.9 L [place] # (Auto) 0.5 Eos # (Auto) 0.2 Baso # (Auto) 0.0 Absolute Nucleated RBC 0.00 Nucleated RBC % 0.0 Sodium 138 Potassium 3.6 Chloride 105 Carbon Dioxide 24 Anion Gap 9.0 BUN 11 Creatinine 0.7 Estimated GFR (MDRD) 100 Glucose 119 H Lactic Acid 1.5 Calcium 8.6 Total Bilirubin 0.3 AST 16 ALT 13 Alkaline Phosphatase 110 Total Protein 6.5 Albumin 3.3 Globulin 3.2 Albumin/Globulin Ratio 1.0 Nasal Adenovirus (PCR) Nasal B. parapertussis DNA (PCR) Nasal Coronavir 229E PCR Nasal Coronavir HKU1 PCR Nasal Coronavir NL63 PCR Nasal Coronavir OC43 PCR Nasal Enterovir/Rhinovir PCR Nasal Influenza B PCR Nasal Influenza A PCR Nasal Parainfluen 1 PCR Nasal Parainfluen 2 PCR Nasal Parainfluen 3 PCR Nasal Parainfluen 4 PCR Nasal RSV (PCR) Nasal B.pertussis DNA PCR Nasal C.pneumoniae (PCR) Andrew Human Metapneumo PCR Nasal M.pneumoniae (PCR) Nasal SARS-CoV-2 (PCR) 12/18/23 22:38 WBC RBC Hgb Hct MCV MCH MCHC RDW Plt Count MPV Neut # (Auto) Lymph # (Auto) [place] # (Auto) Eos # (Auto) Baso # (Auto) Absolute Nucleated RBC Nucleated RBC % Sodium Potassium Chloride Carbon Dioxide Anion Gap BUN Creatinine Estimated GFR (MDRD) Glucose Lactic Acid Calcium Total Bilirubin AST ALT Alkaline Phosphatase Total Protein Albumin Globulin Albumin/Globulin Ratio Nasal Adenovirus (PCR) NOT DETECTED Nasal B. parapertussis DNA (PCR) NOT DETECTED Nasal Coronavir 229E PCR NOT DETECTED Nasal Coronavir HKU1 PCR NOT DETECTED Nasal Coronavir NL63 PCR NOT DETECTED Nasal Coronavir OC43 PCR NOT DETECTED Nasal Enterovir/Rhinovir PCR NOT DETECTED Nasal Influenza B PCR NOT DETECTED Nasal Influenza A PCR NOT DETECTED Nasal Parainfluen 1 PCR NOT DETECTED Nasal Parainfluen 2 PCR NOT DETECTED Nasal Parainfluen 3 PCR NOT DETECTED Nasal Parainfluen 4 PCR NOT DETECTED Nasal RSV (PCR) NOT DETECTED Nasal B.pertussis DNA PCR NOT DETECTED Nasal C.pneumoniae (PCR) NOT DETECTED Andrew Human Metapneumo PCR NOT DETECTED Nasal M.pneumoniae (PCR) NOT DETECTED Nasal SARS-CoV-2 (PCR) NOT DETECTED PD Medical Decision Making - ED course ED course: 28yF presents day 6 to the ED with fever X 2 days of unclear origin. concern for endometritis vs mastitis vs other etiology. patient has no specific symptoms that point to specific diagnosis other than lochia that was foul smelling upon my exam but appears clearish pink. She also has been seen here previously for new onset hypertension concerning for preeclampsia. patient denies holman, vision changes, nausea, chest pain or shortness of breath. On previous visit Dr. Ponce ruled out preeclampsia and discharged her on po labetalol. Patient states her bp has been consistently <140/80 over the past couple days. however on arrival here her bp was 150/59 therefore 10mg IV labetalol was administered. cbc, abdominal panel, u/a, urine protein ordered as well as cxr and ekg. EKG and CXR appear unremarkable per my wet read. labwork remarkable for anemia with hb 8.5, down from 9.3 yesterday and 12.5 on 12/11. d/w Dr. Patel, deputy probation officer marine service station attendant for admission with concern for endometritis. Departure - Departure Disposition: 66 [facility] DC/Xfer Clinical Impression: Endometritis, Anemia, Hypertension, Fever Condition: Fair Forms: PCP List
[2023-12-18] MEDS ORDERED: LABETALOL 20 MG/4 ML SYRINGE IVP STA (23:22)
--- NOTE | 2023-12-18 23:36 | XRAY Report ---
PROCEDURE: Chest 1V INDICATIONS: Sepsis TECHNIQUE: One view of the chest was acquired. COMPARISON: None. FINDINGS: Surgical changes and devices: None. Lungs and pleura: Mild perihilar infiltrates suspicious for perihilar pneumonia. No pleural effusion s or pneumothorax. Mediastinum: Mediastinal contours appear normal. Heart size is normal. Bones and chest wall: No suspicious bony lesions. Overlying soft tissues appear unremarkable. IMPRESSION: Mild perihilar infiltrates suspicious for perihilar pneumonia. Reviewed by: David Max MD on 12/18/2023 11:34 PM PST Approved by: David Max MD on 12/18/2023 11:34 PM PST Station ID: [id number]
[2023-12-18 23:46] LABS: B. PARAPERTUSSIS- RESP PCR PAN NOT DETECTED; B. PERTUSSIS- RESP PCR PANEL NOT DETECTED; C. PNEUMONIAE- RESP PCR PANEL NOT DETECTED; CORONAVIRUS 229E-RESP PCR NOT DETECTED; CORONAVIRUS HKU1-RESP PCR NOT DETECTED; CORONAVIRUS NL63-RESP PCR NOT DETECTED; CORONAVIRUS OC43-RESP PCR NOT DETECTED; HUMAN METAPNEUMOVIRUS NOT DETECTED; INFLUENZA A- RESP PCR PANEL NOT DETECTED; INFLUENZA B - RESP PCR PANEL NOT DETECTED; M. PNEUMONIAE- RESP PCR PANEL NOT DETECTED; PARAINFLUENZA VIRUS 1 NOT DETECTED; PARAINFLUENZA VIRUS 2 NOT DETECTED; PARAINFLUENZA VIRUS 3 NOT DETECTED; PARAINFLUENZA VIRUS 4 NOT DETECTED; RHINOVIRUS/ENTEROVIRUS NOT DETECTED; RSV- RESP PCR PANEL NOT DETECTED; SARS-CoV-2 -RESP PCR PANEL NOT DETECTED
[2023-12-19] MEDS ORDERED: ALBUTEROL NEB 2.5 MG/3 ML INH STA (00:14)
[2023-12-19] MEDS ORDERED: SODIUM CHLORIDE FLUSH 0.9% 10 ML SYRINGE IVP PRN ×2 (00:28→15:48)
[2023-12-19] MEDS ORDERED: ONDANSETRON ODT 4 MG TABLET TL PRN (00:28)
--- NOTE | 2023-12-19 00:43 | HISTORY & PHYSICAL EXAMINATION ---
Admit History - Visit Reason Visit Reason: Other (Pt presented PPD#6 to ED after chills, fever, and temp 101.3 at home, 100.4 on repeat after tylenol and then came here) - Smoking Status: Never smoker - Other Maternal History Other Maternal History: Patient is a 28-year-old 6 days post with likely post endometritis. Also has elevated BP, though none in severe range no ROGERS, vision changes, RUQ pain she has no identifiable source of fever by history no URT symptoms no ROGERS no abdominal pain - though some upper gastric pain breastmilk has come in no redness or warmpth to touch in breasts Course c/b: 1. Asthma -- Recent inhaler use with URI --Lungs clear 2. encouraged dental visit & work -- discussed in detail. 3. anxiety / depression / unstable housing / supported by parents / PTSD -- mood check each visit -- working on coping mechanisms, historically using X stitch, reading, writing, music (listening and singing) 4. A2GDM --Started metforming 1000mg. 5. Elevated blood pressure without diagnosis of hypertension. 6. History of PFO close spontaneously. LMP: 03/06/2023 OTILIO by LMP:12/11/2023 Initial U/S: FINAL OTILIO:12/18/2023 Pre- Weight: BMI: Blood type A+ Antibody Negative CBC: PLT 385 HCT 39.1 HGB 12.5 RUB:immune VZV:immune HBsAg Non reactive HepC ordered 11/13 RPR/AB-EIA:Non reactive HIV:Negative PAP: 05/19/23 normal GC/CT:Negative HSV: denies self/partner Genetic testing: ordered 03 july - Quad normal Covid: allergic to vaccine Flu: allergic to vaccine RSV: 11/06/2023 PMH Asthma PCOS PSH Laparoscopic appendectomy Tonsillectomy Eustachian tubes D&C for miscarriage at 16 weeks SH Denies tobacco, alcohol, drugs. Previous smoker. Family History Noncontributory Allergies Penicillin: Shortness of breath Medications Metformin 1000 mg daily Albuterol as needed vitamins Physical exam: General: Alert, oriented, no acute distress Head: Normal cephalic atraumatic Eyes: PERRLA, extraocular motions intact. Respiratory: Normal rate of respiration. No accessory muscle use, normal respiratory effort. Cardiovascular: Regular rate and rhythm - early 2/5 systolic murmur - known. Abdomen: Gravid, nontender, nondistended - FUNDUS TENDER TO PALPATION Extremities: Normal range of motion Neuro: Oriented x3. Normal movements Psych: Appropriate mood and affect. Normal judgment and insight Perineum: some odour, very tender to exam. Plan 28-year-old PPD#6 with presumed endometritis 1. endometritis with PCN allergy - will give ancef 2g Q8 and gent 5mg / kg Q24 2. - pumping, not latching - will continue to pump while admitted to med surg. - can store breastmilk on L&D 3. Elvated blood pressure -asymptomatic - will increase labetalol to 200mg BID 4.History of PFO -Likely normal. Self-resolved. - HPI Vital Signs Temperature 99.3 F 12/18/23 21:35 Heart Rate 105 H 12/18/23 21:35 Respiratory Rate 16 12/18/23 21:35 Blood Pressure 150/59 H 12/18/23 21:35 O2 Saturation 98 12/18/23 21:35 Temperature 99.3 F 12/18/23 21:35 Heart Rate 67 12/19/23 00:30 Respiratory Rate 16 12/19/23 00:30 Blood Pressure 155/84 H 12/19/23 00:30 O2 Saturation 98 12/19/23 00:30 If not protocol: Oxygen Flow, liters/minute 2 12/19/23 00:21 - NST Procedure NST Procedure Start Time 19:11 Stop Time 20:10 Meds/Allgy - Home Medications Home Medications: Ambulatory Orders Medication Instructions Recorded Confirmed Albuterol 2.5 mg INH Q4H PRN #30 ml 01/31/21 Ibuprofen [Motrin] 600 mg PO Q6H PRN #30 tab 12/15/23 Labetalol [Trandate] 100 mg PO BID #60 tablet 12/17/23 - Allergies Allergies/Adverse Reactions: Allergies Allergy/AdvReac Type Severity Reaction Status Date / Time Penicillins Allergy Rash Verified 12/18/23 21:42 Physical - Abdominal Exam Vital Signs: Temp Pulse Resp BP Pulse Ox O2 Flow Rate 99.3 F 67 16 155/84 H 98 2 12/18/23 21:35 12/19/23 00:30 12/19/23 00:30 12/19/23 00:30 12/19/23 00:30 12/19/23 00:21 Plan for Labor - Plan For Labor I expect patient to be DC'd or transferred within 96 hours.: Yes Plan for Labor: admit to med surg for IV abx ancef and gent and continue to pump milk for baby
[2023-12-19] MEDS ORDERED: GENTAMICIN 308 MG in SODIUM CHLORIDE 0.9% 100ML 100 ML IV SCH (01:00)
[2023-12-19] MEDS ORDERED: SODIUM CHLORIDE 0.9% 100ML 100 ML IV ONE (01:37)
[2023-12-19] MEDS: LACTATED RINGERS 1,000 ML IV SCH ×2 (01:59→16:53)
[2023-12-19] MEDS: ceFAZolin (2G) 2 GM in SODIUM CHLORIDE 0.9% MINIBAG 100 ML IV SCH ×3 (01:59→17:52)
[2023-12-19] MEDS: SODIUM CHLORIDE FLUSH 0.9% 10 ML SYRINGE IVP SCH ×4 (02:00→20:58)
[2023-12-19] MEDS ORDERED: GENTAMICIN 80 MG/2 ML VIAL ONE (02:08)
[2023-12-19 02:58] LABS: BILIRUBIN,URINE NEGATIVE (NEGATIVE); GLUCOSE, URINE (UA) NEGATIVE (NEGATIVE); KETONES,URINE (UA) NEGATIVE (NEGATIVE); LEUKOCYTE ESTERASE, URINE SMALL (NEGATIVE); NITRITE,URINE NEGATIVE (NEGATIVE); OCCULT BLOOD,URINE LARGE (NEGATIVE); PROTEIN,URINE NEGATIVE (NEGATIVE); UROBILINOGEN,URINE 0.2 (NORMAL) E.U./dL (NORMAL)
[2023-12-19 03:13] LABS: BACTERIA,URINE Rare /HPF (None Seen); CLARITY,URINE HAZY (CLEAR); SQUAMOUS EPITHELIAL CELL,UR FEW Squamous (<= Few)
[2023-12-19] MEDS: IBUPROFEN 600 MG TABLET PO PRN ×2 (04:40→14:53)
[2023-12-19] MEDS ORDERED: ALBUTEROL NEB 2.5 MG/3 ML INH PRN (04:58)
[2023-12-19] MEDS ORDERED: LABETALOL 100 MG TABLET PO SCH (09:00)
[2023-12-19] MEDS: ENOXAPARIN 40 MG/0.4 ML SYRINGE SUBQ SCH (09:16)
[2023-12-19] MEDS: ACETAMINOPHEN 500 MG TABLET PO PRN (10:37)
[2023-12-19] MEDS ORDERED: METOCLOPRAMIDE 10 MG/2 ML VIAL IVP PRN (14:35)
--- NOTE | 2023-12-19 14:41 | CONSULTATION NOTE ---
Referring Provider Name of Referring Provider:: Dr Elaine Mason Consult Date: 12/19/23 Chief Complaint - Chief Complaint Chief Complaint: SOB and rhonchi on lung exam, "feels different than her asthma" History of Present Illness - Admitted From Admitted From:: ED - History Obtained From History obtained from: Dr Mason, chart review and the patient and her mother (at bedside) - History of Present Illness HPI Comment/Other: This is a 28-year-old female with a history of asthma, gestational diabetes and preeclampsia. She delivered a healthy baby boy several days ago. She presented back to the hospital about 2 days later with complaints of low- grade fever and hypertension and was sent home with new po Labetalol. She presented back again 2 days after that with complaints of fever to 101 and pe rsistent high blood pressure. Exam showed foul-smelling lochia and tender fundus of her uterus and she was admitted now into Observation status to treat presumed endometritis. She has been started on Cefazolin and Gentamicin due to a PCN allergy. Today the NUTRITION COORDINATOR physician requested consultation from Hospitalist service to evaluate the patient's pulmonary status. The pt is in worse resp distress today and there are rales and rhonchi on exam and empiric Zithromax was started. the patient states that she feels different than when she gets asthma attacks. There was possibly aspiration during the delivery since the patient vomited several times. Also there was possible syncope after the vomiting since the patient cannot remember a portion of time during the delivery. Her mother reports that she "passed out at least twice", and the pt was told it was from receiving Fentanyl, since (the mother reported) the patient's BP was high and pt was tachycardic during both syncopal events. During this admission, she has been afebrile after admission. BP has been 157/96 and 164/85. Her chest x-ray on this admission showed mild perihilar infiltrates consistent with atypical pneumonia. Her WBC on admission was 9.7, and her electrolytes were normal. Her respiratory PCR was entirely negative. As I am meeting the patient, and getting the history from the patient and her mother at bedside, the patient says she feels sweaty because she thinks her "fever just broke". Patient also reported she was given Ibuprofen for pain about an hour ago which has helped her "burp about 8 times" moments ago, and that immediately relieved central chest pain and her shortness of breath. She currently has no abdominal pain. Patient has been pumping her breastmilk because the baby will not latch on. The baby is healthy and doing well, and has been fed this breastmilk. 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 - POLST Patient has POLST: No Meds/Allgy - Home Medications Home Medications: Ambulatory Orders Medication Instructions Recorded Confirmed Albuterol 2.5 mg INH Q4H PRN #30 ml 01/31/21 12/19/23 Ibuprofen [Motrin] 600 mg PO Q6H PRN #30 tab 12/15/23 12/19/23 Labetalol [Trandate] 100 mg PO BID #60 tablet 12/17/23 12/19/23 Metformin HCl [Metformin ER 2 tab PO DAILY 12/19/23 12/19/23 Gastric] Mupirocin 2% Oint [Bactroban 2% 1 applic TOP BID 12/19/23 12/19/23 Oint] - Allergies Allergies/Adverse Reactions: Allergies Allergy/AdvReac Type Severity Reaction Status Date / Time Penicillins Allergy Rash Verified 12/18/23 21:42 Review of Systems - Constitutional Constitutional: reports: Fever - Cardiovascular Cariovascular: reports: Chest pain (CP since yesterday w/ SOB, CP and SOB relieved with burping) - Respiratory Respiratory: reports: SOB at rest - All Other Systems All Other Systems: reports: Reviewed and negative Exam - Vital Signs Vital Signs: Vital Signs x48h Temp Pulse Resp BP Pulse Ox 12/19/23 14:21 37.7 C 12/19/23 08:00 37.1 C 92 18 157/96 H 97 - Physical Exam General Appearance: positive: No acute distress, Alert Eyes Bilateral: positive: EOMI, No lid inflammation ENT: positive: ENT inspection nml, No signs of dehydration Neck: positive: Nml inspection, Thyroid nml, No JVD Respiratory: positive: Rales (Both bases. No wheezing) Cardiovascular: positive: Regular rate & rhythm, Systolic murmur, Gallop/S4 Abdomen: positive: Non-tender, Nml bowel sounds Skin: positive: Warm, Diaphoresis (her fever just "broke") Extremities: positive: Non-tender, No pedal edema Neurologic/Psychiatric: positive: Oriented x3, CN's nml (2-12), Motor nml Conclusion/Plan - Problem List (1) Pulmonary edema Conclusion/Plan: Patient herself stated several times that this shortness of breath feels different than when she has an asthma attack. Her admission CXR had subtle interstitial changes perihilar which could be pulmonary edema or viral findings With her worsening shortness of breath and rales audible today, a repeat chest x-ray was done that was read as having moderate pulmonary edema and a amniotic fluid embolus could not be ruled out. Patient's room air O2 saturation has dropped to 88-89%. She has been started on supplemental O2 via nasal cannula. STAT ABG was done that shows pH 7.51/26/68 w/ satur 96%, consistent with respiratory alkalosis with mild hypoxia as the cause of her tachypnea Recommend: Admit this patient from Observation to Inpatient status. Transfer the patient to the ICU Monitor on telemetry Obtain stat D-dimer Obtain stat CTA chest Check a BNP Stop the saline infusion. Give a dose of Lasix IV to treat the pulmonary edema Obtain troponins x 2 to rule out an acute coronary syndrome as the cause of the pulmonary edema Continue meds to achieve good blood pressure control Administer oxygen to keep O2 saturations greater than 92% Obtain a cardiac Echo (2) Transient hypertension during , Conclusion/Plan: Patient was diagnosed with eclampsia. When she came to the ER 4 days ago she was hypertensive and discharged home on Labetalol Recommend: Continue with blood pressure meds for hypertension control Increase vital sign checks from q shift to every 2-4h (3) Endometritis Conclusion/Plan: The fever which caused her to come to the ER and workup by NUTRITION COORDINATOR was felt to be endometritis and she was started on empiric antibiotics Recommend: Further management for Endometritis as per NUTRITION COORDINATOR service (4) Gestational diabetes Conclusion/Plan: As per history. Recommend: Follow her glucose via fingerstick checks and start a sliding scale insulin schedule for coverage Check A1c with a.m. labs (5) Asthma Conclusion/Plan: She uses albuterol as needed not scheduled and only gets asthma attacks seasonally Her current exam is not consistent with asthma and she herself says this does not feel like her asthma breathing Recommend: Continue with nebulized bronchodilators just PRN - Lab Results Fish Bones: 12/19/23 14:52 12/19/23 14:52 - Diagnostic Imaging Results Diagnostic Imaging Results: positive: Final report reviewed - EKG Results EKG Interpreted Independently: Yes EKG Comparison: Changed from prior EKG EKG Findings: EKG done today, I interpreted, it showed: Normal sinus rhythm, rate 88, inverted T waves in V1 and V2. Since EKG from 12/18/2023, T wave inversion in V2 is new, which could be due to a different V2 lead placement. - Other Other Results/Comments: Attestation: The patient is expected to be hospitalized for greater than 2 midnights and is expected to be discharged or transferred to another facility within 96 hours: Yes. Thank you for allowing me to participate in care of this patient. I will follow along with you until she is discharged.
[2023-12-19] MEDS: LABETALOL 100 MG TABLET PO SCH ×2 (14:58→21:16)
[2023-12-19 14:59] LABS: BASOPHILS # (AUTO) 0.1 10^3/uL (0.0-0.1); BASOPHILS % (AUTO) 0.5 %; EOSINOPHILS # (AUTO) 0.1 10^3/uL (0.0-0.7); EOSINOPHILS % (AUTO) 1.3 %; HCT - HEMATOCRIT 35.4 % (37.0-47.0); HGB - HEMOGLOBIN 11.1 g/dL (12.0-16.0); LYMPHOCYTES # (AUTO) 1.1 10^3/uL (1.5-3.5); LYMPHOCYTES % (AUTO) 10.6 %; MEAN CORPUSCULAR HEMOGLOBIN 27.8 pg (27.0-31.0); MEAN CORPUSCULAR HGB CONC 31.4 g/dL (32.0-36.0); MEAN CORPUSCULAR VOLUME 88.7 fL (81.0-99.0); MEAN PLATELET VOLUME 10.5 fL (7.9-10.8); MONOCYTES # (AUTO) 0.5 10^3/uL (0.0-1.0); MONOCYTES % (AUTO) 4.5 %; NEUTROPHILS # (AUTO) 8.9 10^3/uL (1.5-6.6); NEUTROPHILS % (AUTO) 82.5 %; PLT - PLATELET COUNT 370 10^3/uL (130-450); RED BLOOD COUNT 3.99 10^6/uL (4.20-5.40); RED CELL DISTRIBUTION WIDTH 14.3 % (12.0-15.0); WHITE BLOOD COUNT 10.7 x10^3/uL (4.8-10.8)
[2023-12-19] MEDS ORDERED: IRON DEXTRAN 200 MG in SODIUM CHLORIDE 0.9% 100ML 100 ML IV SCH (15:00)
[2023-12-19] MEDS ORDERED: SODIUM CHLORIDE 0.9% 1,000 ML IV SCH (15:00)
[2023-12-19 15:16] LABS: CALCIUM 8.9 mg/dL (8.5-10.3); CREATININE 0.7 mg/dL (0.6-1.3); POTASSIUM 3.8 mmol/L (3.5-4.5)
--- NOTE | 2023-12-19 15:18 | XRAY Report ---
PROCEDURE: Chest 1V INDICATIONS: Worse rales TECHNIQUE: One view of the chest was acquired. COMPARISON: None. FINDINGS: Surgical changes and devices: None. Lungs and pleura: No pleural effusions or pneumothorax. Lungs are edematous diffusely. Mediastinum: Mediastinal contours appear normal. Heart size is normal. Bones and chest wall: No suspicious bony lesions. Overlying soft tissues appear unremarkable. IMPRESSION: Moderate bilateral diffuse alveolar edema, etiology uncertain. Amniotic fluid embolus can produce suc h an appearance. Reviewed by: Kang Morales MD on 12/19/2023 3:17 PM PST Approved by: Kang Morales MD on 12/19/2023 3:17 PM PST Station ID: [id number]
[2023-12-19] MEDS ORDERED: MORPHINE 2 MG/ML CARPUJECT IVP PRN (15:48)
[2023-12-19] MEDS ORDERED: FUROSEMIDE 20 MG/2 ML VIAL IVP STA (15:54)
[2023-12-19] MEDS ORDERED: iohexoL-300 100 ML VIAL ONE (16:30)
[2023-12-19 16:34] LABS: ABG BASE EXCESS -1.9 mmol/L (-2.0-3.0); ABG HCO3 20.3 mmol/L (22.0-26.0); ABG OXYGEN SATURATION 94 % (94-98); ABG PCO2 26 mmHg (34-45); ABG PH 7.51 (7.35-7.45); ABG PO2 68 mmHg (80-100); ABG TCO2 21.1 MMOL/L (21.0-29.0); ALLEN TEST POSITIVE
[2023-12-19 16:48] LABS: ALBUMIN 3.1 g/dL (3.2-5.5); ALKALINE PHOSPHATASE 110 IU/L (42-121); ALT ALANINE AMINOTRANSFERASE 12 IU/L (10-60); AST ASPARTATE AMINOTRANSFERASE 13 IU/L (10-42); BILIRUBIN,DIRECT < 0.10 mg/dL (0.03-0.18); BILIRUBIN,TOTAL 0.4 mg/dL (0.2-1.0); CALCIUM 8.6 mg/dL (8.5-10.3); MAGNESIUM 1.5 mg/dL (1.7-2.3); TOTAL PROTEIN 6.2 g/dL (6.4-8.9)
[2023-12-19 16:50] LABS: D-DIMER 776.2 ng/mL (200.0-255.0)
[2023-12-19 16:57] LABS: INR 1.2 (0.8-1.2); PT - PROTHROMBIN TIME 12.4 secs (9.9-12.6)
[2023-12-19] MEDS ORDERED: iohexoL-300 100 ML VIAL IVP ONE (17:40)
[2023-12-19] MEDS: CHOLECALCIFEROL 25 MCG TABLET PO SCH (17:52)
--- NOTE | 2023-12-19 18:18 | CT Report ---
PROCEDURE: Angio Chest INDICATIONS: CTA chest to eval for PE CONTRAST: 80ml omni 300 TECHNIQUE: After the administration of intravenous contrast, 2 mm axial images were acquired from the pulmonary apices to the posterior costophrenic angles during the arterial phase. In addition, 1 mm lung kernel and 5 mm soft tissue kernel reconstructions were performed. 3-dimensional coronal oblique maximum int ensity projection (MIP) reformats, 8 mm axial MIP, and 5 mm coronal and sagittal MPR reformats were t hen performed through the thorax. For radiation dose reduction, the following was used: automated exp osure control, adjustment of mA and/or kV according to patient size. COMPARISON: Chest x-ray 12/19/2023 FINDINGS: Image quality: Excellent. Large vessels: No filling defects within the opacified pulmonary arteries, accounting for motion and contrast timing. No evidence of acute aortic syndrome or aortic aneurysm. Lungs and pleura: Mild bilateral pleural effusions. There are patchy areas of solid and groundglass o pacity within the lungs bilaterally most severe in the upper lobes as well as right lower lobe. Mediastinum: Heart size is normal. No pericardial effusion. No large vessel abnormality. No mediastin al adenopathy by size criteria. Chest wall and lower neck: Thyroid is unremarkable. No axillary or supraclavicular adenopathy by size . Bones: No aggressive osseous abnormality. Upper Abdomen: Unremarkable. IMPRESSION: No pulmonary embolus. Bilateral pleural effusions. Bilateral patchy and consolidative opacities bilaterally most suggestive of infection/inflammation olmstead ch as pneumonia. Recommend interval follow-up to document resolution and exclude presence of underlyi ng mass lesion. Reviewed by: Julia Mendiola MD on 12/19/2023 6:17 PM PST Approved by: Julia Mendiola MD on 12/19/2023 6:17 PM PST Station ID: [id number]
--- NOTE | 2023-12-19 18:30 | PROVIDER PROGRESS NOTE ---
Subjective - Prog Note Date Prog Note Date: 12/19/23 Prog Note Time: 14:20 - Subjective Pt reports feeling: Worse Subjective: significant shortness of breathe when I saw Brit at about 1400 and then at 1630 she burped many times and felt much better and was ready for some dinner. Objective - Vital Signs/Intake & Output Vital Signs: Vital Signs x48h Temp Pulse Resp BP Pulse Ox 12/19/23 18:00 83 24 140/89 H 95 12/19/23 17:00 110 H 23 134/84 H 95 12/19/23 15:37 101.1 F H 90 18 164/85 H 89 L 12/19/23 14:21 99.9 F Intake & Output: Intake & Output 12/16/23 12/17/23 12/18/23 12/19/23 23:59 23:59 23:59 23:59 Intake Total 5367.56 Output Total 400 Balance 4967.56 - Objective General Appearance: positive: Mild distress (when I saw her at 1400.) Respiratory: positive: Other (bilateral lungs sounded full of fluid, gurgly.) Cardiovascular: positive: Regular rate & rhythm (to sinus tachy) Abdomen: positive: Non-tender (fundus not tender.) Skin: positive: Color nml, Warm, Diaphoresis (midly) Extremities: positive: Non-tender (minimal edema. good for pp 5 days.) - Lab Results Fish Bones: 12/19/23 14:52 12/19/23 14:52 Other Labs: Lab Results x24hrs 12/19/23 12/19/23 12/19/23 Range/Units 17:36 16:15 16:11 WBC (4.8-10.8) x10^3/uL RBC (4.20-5.40) 10^6/uL Hgb (12.0-16.0) g/dL Hct (37.0-47.0) % MCV (81.0-99.0) fL MCH (27.0-31.0) pg MCHC (32.0-36.0) g/dL RDW (12.0-15.0) % Plt Count (130-450) 10^3/uL MPV (7.9-10.8) fL Neut # (Auto) (1.5-6.6) 10^3/uL Lymph # (Auto) (1.5-3.5) 10^3/uL Mathews # (Auto) (0.0-1.0) 10^3/uL Eos # (Auto) (0.0-0.7) 10^3/uL Baso # (Auto) (0.0-0.1) 10^3/uL Absolute Nucleated RBC x10^3/uL Nucleated RBC % /100WBC PT (9.9-12.6) secs INR (0.8-1.2) D-Dimer (200.0-255.0) ng/mL Bld Gas Analysis Time 1626 Sample Site RIGHT RADIAL ABG pH 7.51 H (7.35-7.45) ABG pCO2 26 L (34-45) mmHg ABG pO2 68 L (80-100) mmHg ABG HCO3 20.3 L (22.0-26.0) mmol/L ABG Total CO2 21.1 (21.0-29.0) MMOL/L ABG O2 Saturation 94 (94-98) % ABG Base Excess -1.9 (-2.0-3.0) mmol/L Anatoliy Test POSITIVE Room Air YES Sodium (135-145) mmol/L Potassium (3.5-4.5) mmol/L Chloride (101-111) mmol/L Carbon Dioxide (21-32) mmol/L Anion Gap (6-13) BUN (6-20) mg/dL Creatinine (0.6-1.3) mg/dL Estimated GFR (MDRD) (>89) Glucose (74-104) mg/dL POC Whole Bld Glucose 120 H (70 - 100) mg/dL Lactic Acid (0.5-2.2) mmol/L Calcium 8.6 (8.5-10.3) mg/dL Phosphorus 3.0 (2.5-5.0) mg/dL Magnesium 1.5 L (1.7-2.3) mg/dL Total Bilirubin 0.4 (0.2-1.0) mg/dL Direct Bilirubin < 0.10 (0.03-0.18) mg/dL AST 13 (10-42) IU/L ALT 12 (10-60) IU/L Alkaline Phosphatase 110 (42-121) IU/L Troponin I High Sens (2.3-14.8) ng/L B-Natriuretic Peptide (5-100) pg/mL Total Protein 6.2 L (6.4-8.9) g/dL Albumin 3.1 L (3.2-5.5) g/dL Globulin 3.1 (2.1-4.2) g/dL Albumin/Globulin Ratio (1.0-2.2) Urine Color Urine Clarity (CLEAR) Urine pH (5.0-7.5) PH Ur Specific [place] (1.002-1.030) Urine Protein (NEGATIVE) mg/dL Urine Glucose (UA) (NEGATIVE) mg/dL Urine Ketones (NEGATIVE) mg/dL Urine Occult Blood (NEGATIVE) Urine Nitrite (NEGATIVE) Urine Bilirubin (NEGATIVE) Urine Urobilinogen (NORMAL) E.U./dL Ur Leukocyte Esterase (NEGATIVE) Urine RBC (0-5) /HPF Urine WBC (0-5) /HPF Ur Squamous Epith Cells (<= Few) Urine Bacteria (None Seen) /HPF Urine Culture Comments U Random Total Protein mg/dL Nasal Adenovirus (PCR) Nasal B. parapertussis DNA (PCR) Nasal Coronavir 229E PCR Nasal Coronavir HKU1 PCR Nasal Coronavir NL63 PCR Nasal Coronavir OC43 PCR Nasal Enterovir/Rhinovir PCR Nasal Influenza B PCR Nasal Influenza A PCR Nasal Parainfluen 1 PCR Nasal Parainfluen 2 PCR Nasal Parainfluen 3 PCR Nasal Parainfluen 4 PCR Nasal RSV (PCR) Nasal B.pertussis DNA PCR Nasal C.pneumoniae (PCR) Andrew Human Metapneumo PCR Nasal M.pneumoniae (PCR) Nasal SARS-CoV-2 (PCR) 12/19/23 12/19/23 12/19/23 Range/Units 16:11 16:11 14:52 WBC (4.8-10.8) x10^3/uL RBC (4.20-5.40) 10^6/uL Hgb (12.0-16.0) g/dL Hct (37.0-47.0) % MCV (81.0-99.0) fL MCH (27.0-31.0) pg MCHC (32.0-36.0) g/dL RDW (12.0-15.0) % Plt Count (130-450) 10^3/uL MPV (7.9-10.8) fL Neut # (Auto) (1.5-6.6) 10^3/uL Lymph # (Auto) (1.5-3.5) 10^3/uL Mathews # (Auto) (0.0-1.0) 10^3/uL Eos # (Auto) (0.0-0.7) 10^3/uL Baso # (Auto) (0.0-0.1) 10^3/uL Absolute Nucleated RBC x10^3/uL Nucleated RBC % /100WBC PT 12.4 (9.9-12.6) secs INR 1.2 (0.8-1.2) D-Dimer 776.2 H (200.0-255.0) ng/mL Bld Gas Analysis Time Sample Site ABG pH (7.35-7.45) ABG pCO2 (34-45) mmHg ABG pO2 (80-100) mmHg ABG HCO3 (22.0-26.0) mmol/L ABG Total CO2 (21.0-29.0) MMOL/L ABG O2 Saturation (94-98) % ABG Base Excess (-2.0-3.0) mmol/L Anatoliy Test Room Air Sodium (135-145) mmol/L Potassium (3.5-4.5) mmol/L Chloride (101-111) mmol/L Carbon Dioxide (21-32) mmol/L Anion Gap (6-13) BUN (6-20) mg/dL Creatinine (0.6-1.3) mg/dL Estimated GFR (MDRD) (>89) Glucose (74-104) mg/dL POC Whole Bld Glucose (70 - 100) mg/dL Lactic Acid (0.5-2.2) mmol/L Calcium (8.5-10.3) mg/dL Phosphorus (2.5-5.0) mg/dL Magnesium (1.7-2.3) mg/dL Total Bilirubin (0.2-1.0) mg/dL Direct Bilirubin (0.03-0.18) mg/dL AST (10-42) IU/L ALT (10-60) IU/L Alkaline Phosphatase (42-121) IU/L Troponin I High Sens 33.9 H* 28.0 H* (2.3-14.8) ng/L B-Natriuretic Peptide 575 H (5-100) pg/mL Total Protein (6.4-8.9) g/dL Albumin (3.2-5.5) g/dL Globulin (2.1-4.2) g/dL Albumin/Globulin Ratio (1.0-2.2) Urine Color Urine Clarity (CLEAR) Urine pH (5.0-7.5) PH Ur Specific [place] (1.002-1.030) Urine Protein (NEGATIVE) mg/dL Urine Glucose (UA) (NEGATIVE) mg/dL Urine Ketones (NEGATIVE) mg/dL Urine Occult Blood (NEGATIVE) Urine Nitrite (NEGATIVE) Urine Bilirubin (NEGATIVE) Urine Urobilinogen (NORMAL) E.U./dL Ur Leukocyte Esterase (NEGATIVE) Urine RBC (0-5) /HPF Urine WBC (0-5) /HPF Ur Squamous Epith Cells (<= Few) Urine Bacteria (None Seen) /HPF Urine Culture Comments U Random Total Protein mg/dL Nasal Adenovirus (PCR) Nasal B. parapertussis DNA (PCR) Nasal Coronavir 229E PCR Nasal Coronavir HKU1 PCR Nasal Coronavir NL63 PCR Nasal Coronavir OC43 PCR Nasal Enterovir/Rhinovir PCR Nasal Influenza B PCR Nasal Influenza A PCR Nasal Parainfluen 1 PCR Nasal Parainfluen 2 PCR Nasal Parainfluen 3 PCR Nasal Parainfluen 4 PCR Nasal RSV (PCR) Nasal B.pertussis DNA PCR Nasal C.pneumoniae (PCR) Andrew Human Metapneumo PCR Nasal M.pneumoniae (PCR) Nasal SARS-CoV-2 (PCR) 12/19/23 12/19/23 12/18/23 Range/Units 14:52 14:52 22:38 WBC 10.7 (4.8-10.8) x10^3/uL RBC 3.99 L (4.20-5.40) 10^6/uL Hgb 11.1 L (12.0-16.0) g/dL Hct 35.4 L (37.0-47.0) % MCV 88.7 (81.0-99.0) fL MCH 27.8 (27.0-31.0) pg MCHC 31.4 L (32.0-36.0) g/dL RDW 14.3 (12.0-15.0) % Plt Count 370 (130-450) 10^3/uL MPV 10.5 (7.9-10.8) fL Neut # (Auto) 8.9 H (1.5-6.6) 10^3/uL Lymph # (Auto) 1.1 L (1.5-3.5) 10^3/uL Mathews # (Auto) 0.5 (0.0-1.0) 10^3/uL Eos # (Auto) 0.1 (0.0-0.7) 10^3/uL Baso # (Auto) 0.1 (0.0-0.1) 10^3/uL Absolute Nucleated RBC 0.00 x10^3/uL Nucleated RBC % 0.0 /100WBC PT (9.9-12.6) secs INR (0.8-1.2) D-Dimer (200.0-255.0) ng/mL Bld Gas Analysis Time Sample Site ABG pH (7.35-7.45) ABG pCO2 (34-45) mmHg ABG pO2 (80-100) mmHg ABG HCO3 (22.0-26.0) mmol/L ABG Total CO2 (21.0-29.0) MMOL/L ABG O2 Saturation (94-98) % ABG Base Excess (-2.0-3.0) mmol/L Anatoliy Test Room Air Sodium 141 (135-145) mmol/L Potassium 3.8 (3.5-4.5) mmol/L Chloride 109 (101-111) mmol/L Carbon Dioxide 21 (21-32) mmol/L Anion Gap 11.0 (6-13) BUN 8 (6-20) mg/dL Creatinine 0.7 (0.6-1.3) mg/dL Estimated GFR (MDRD) 100 (>89) Glucose 94 (74-104) mg/dL POC Whole Bld Glucose (70 - 100) mg/dL Lactic Acid (0.5-2.2) mmol/L Calcium 8.9 (8.5-10.3) mg/dL Phosphorus (2.5-5.0) mg/dL Magnesium (1.7-2.3) mg/dL Total Bilirubin (0.2-1.0) mg/dL Direct Bilirubin (0.03-0.18) mg/dL AST (10-42) IU/L ALT (10-60) IU/L Alkaline Phosphatase (42-121) IU/L Troponin I High Sens (2.3-14.8) ng/L B-Natriuretic Peptide (5-100) pg/mL Total Protein (6.4-8.9) g/dL Albumin (3.2-5.5) g/dL Globulin (2.1-4.2) g/dL Albumin/Globulin Ratio (1.0-2.2) Urine Color Urine Clarity (CLEAR) Urine pH (5.0-7.5) PH Ur Specific [place] (1.002-1.030) Urine Protein (NEGATIVE) mg/dL Urine Glucose (UA) (NEGATIVE) mg/dL Urine Ketones (NEGATIVE) mg/dL Urine Occult Blood (NEGATIVE) Urine Nitrite (NEGATIVE) Urine Bilirubin (NEGATIVE) Urine Urobilinogen (NORMAL) E.U./dL Ur Leukocyte Esterase (NEGATIVE) Urine RBC (0-5) /HPF Urine WBC (0-5) /HPF Ur Squamous Epith Cells (<= Few) Urine Bacteria (None Seen) /HPF Urine Culture Comments U Random Total Protein mg/dL Nasal Adenovirus (PCR) NOT DETECTED Nasal B. parapertussis DNA (PCR) NOT DETECTED Nasal Coronavir 229E PCR NOT DETECTED Nasal Coronavir HKU1 PCR NOT DETECTED Nasal Coronavir NL63 PCR NOT DETECTED Nasal Coronavir OC43 PCR NOT DETECTED Nasal Enterovir/Rhinovir PCR NOT DETECTED Nasal Influenza B PCR NOT DETECTED Nasal Influenza A PCR NOT DETECTED Nasal Parainfluen 1 PCR NOT DETECTED Nasal Parainfluen 2 PCR NOT DETECTED Nasal Parainfluen 3 PCR NOT DETECTED Nasal Parainfluen 4 PCR NOT DETECTED Nasal RSV (PCR) NOT DETECTED Nasal B.pertussis DNA PCR NOT DETECTED Nasal C.pneumoniae (PCR) NOT DETECTED Andrew Human Metapneumo PCR NOT DETECTED Nasal M.pneumoniae (PCR) NOT DETECTED Nasal SARS-CoV-2 (PCR) NOT DETECTED 12/18/23 12/18/23 12/18/23 Range/Units 22:27 22:27 22:27 WBC 9.7 (4.8-10.8) x10^3/uL RBC 3.07 L (4.20-5.40) 10^6/uL Hgb 8.5 L (12.0-16.0) g/dL Hct 27.2 L (37.0-47.0) % MCV 88.6 (81.0-99.0) fL MCH 27.7 (27.0-31.0) pg MCHC 31.3 L (32.0-36.0) g/dL RDW 14.3 (12.0-15.0) % Plt Count 291 (130-450) 10^3/uL MPV 10.9 H (7.9-10.8) fL Neut # (Auto) 8.1 H (1.5-6.6) 10^3/uL Lymph # (Auto) 0.9 L (1.5-3.5) 10^3/uL Mathews # (Auto) 0.5 (0.0-1.0) 10^3/uL Eos # (Auto) 0.2 (0.0-0.7) 10^3/uL Baso # (Auto) 0.0 (0.0-0.1) 10^3/uL Absolute Nucleated RBC 0.00 x10^3/uL Nucleated RBC % 0.0 /100WBC PT (9.9-12.6) secs INR (0.8-1.2) D-Dimer (200.0-255.0) ng/mL Bld Gas Analysis Time Sample Site ABG pH (7.35-7.45) ABG pCO2 (34-45) mmHg ABG pO2 (80-100) mmHg ABG HCO3 (22.0-26.0) mmol/L ABG Total CO2 (21.0-29.0) MMOL/L ABG O2 Saturation (94-98) % ABG Base Excess (-2.0-3.0) mmol/L Anatoliy Test Room Air Sodium 138 (135-145) mmol/L Potassium 3.6 (3.5-4.5) mmol/L Chloride 105 (101-111) mmol/L Carbon Dioxide 24 (21-32) mmol/L Anion Gap 9.0 (6-13) BUN 11 (6-20) mg/dL Creatinine 0.7 (0.6-1.3) mg/dL Estimated GFR (MDRD) 100 (>89) Glucose 119 H (74-104) mg/dL POC Whole Bld Glucose (70 - 100) mg/dL Lactic Acid 1.5 (0.5-2.2) mmol/L Calcium 8.6 (8.5-10.3) mg/dL Phosphorus (2.5-5.0) mg/dL Magnesium (1.7-2.3) mg/dL Total Bilirubin 0.3 (0.2-1.0) mg/dL Direct Bilirubin (0.03-0.18) mg/dL AST 16 (10-42) IU/L ALT 13 (10-60) IU/L Alkaline Phosphatase 110 (42-121) IU/L Troponin I High Sens (2.3-14.8) ng/L B-Natriuretic Peptide (5-100) pg/mL Total Protein 6.5 (6.4-8.9) g/dL Albumin 3.3 (3.2-5.5) g/dL Globulin 3.2 (2.1-4.2) g/dL Albumin/Globulin Ratio 1.0 (1.0-2.2) Urine Color Urine Clarity (CLEAR) Urine pH (5.0-7.5) PH Ur Specific [place] (1.002-1.030) Urine Protein (NEGATIVE) mg/dL Urine Glucose (UA) (NEGATIVE) mg/dL Urine Ketones (NEGATIVE) mg/dL Urine Occult Blood (NEGATIVE) Urine Nitrite (NEGATIVE) Urine Bilirubin (NEGATIVE) Urine Urobilinogen (NORMAL) E.U./dL Ur Leukocyte Esterase (NEGATIVE) Urine RBC (0-5) /HPF Urine WBC (0-5) /HPF Ur Squamous Epith Cells (<= Few) Urine Bacteria (None Seen) /HPF Urine Culture Comments U Random Total Protein mg/dL Nasal Adenovirus (PCR) Nasal B. parapertussis DNA (PCR) Nasal Coronavir 229E PCR Nasal Coronavir HKU1 PCR Nasal Coronavir NL63 PCR Nasal Coronavir OC43 PCR Nasal Enterovir/Rhinovir PCR Nasal Influenza B PCR Nasal Influenza A PCR Nasal Parainfluen 1 PCR Nasal Parainfluen 2 PCR Nasal Parainfluen 3 PCR Nasal Parainfluen 4 PCR Nasal RSV (PCR) Nasal B.pertussis DNA PCR Nasal C.pneumoniae (PCR) Andrew Human Metapneumo PCR Nasal M.pneumoniae (PCR) Nasal SARS-CoV-2 (PCR) 12/18/23 12/18/23 Range/Units 02:30 02:30 WBC (4.8-10.8) x10^3/uL RBC (4.20-5.40) 10^6/uL Hgb (12.0-16.0) g/dL Hct (37.0-47.0) % MCV (81.0-99.0) fL MCH (27.0-31.0) pg MCHC (32.0-36.0) g/dL RDW (12.0-15.0) % Plt Count (130-450) 10^3/uL MPV (7.9-10.8) fL Neut # (Auto) (1.5-6.6) 10^3/uL Lymph # (Auto) (1.5-3.5) 10^3/uL Mathews # (Auto) (0.0-1.0) 10^3/uL Eos # (Auto) (0.0-0.7) 10^3/uL Baso # (Auto) (0.0-0.1) 10^3/uL Absolute Nucleated RBC x10^3/uL Nucleated RBC % /100WBC PT (9.9-12.6) secs INR (0.8-1.2) D-Dimer (200.0-255.0) ng/mL Bld Gas Analysis Time Sample Site ABG pH (7.35-7.45) ABG pCO2 (34-45) mmHg ABG pO2 (80-100) mmHg ABG HCO3 (22.0-26.0) mmol/L ABG Total CO2 (21.0-29.0) MMOL/L ABG O2 Saturation (94-98) % ABG Base Excess (-2.0-3.0) mmol/L Anatoliy Test Room Air Sodium (135-145) mmol/L Potassium (3.5-4.5) mmol/L Chloride (101-111) mmol/L Carbon Dioxide (21-32) mmol/L Anion Gap (6-13) BUN (6-20) mg/dL Creatinine (0.6-1.3) mg/dL Estimated GFR (MDRD) (>89) Glucose (74-104) mg/dL POC Whole Bld Glucose (70 - 100) mg/dL Lactic Acid (0.5-2.2) mmol/L Calcium (8.5-10.3) mg/dL Phosphorus (2.5-5.0) mg/dL Magnesium (1.7-2.3) mg/dL Total Bilirubin (0.2-1.0) mg/dL Direct Bilirubin (0.03-0.18) mg/dL AST (10-42) IU/L ALT (10-60) IU/L Alkaline Phosphatase (42-121) IU/L Troponin I High Sens (2.3-14.8) ng/L B-Natriuretic Peptide (5-100) pg/mL Total Protein (6.4-8.9) g/dL Albumin (3.2-5.5) g/dL Globulin (2.1-4.2) g/dL Albumin/Globulin Ratio (1.0-2.2) Urine Color YELLOW Urine Clarity HAZY (CLEAR) Urine pH 6.0 (5.0-7.5) PH Ur Specific [place] <=1.005 (1.002-1.030) Urine Protein NEGATIVE (NEGATIVE) mg/dL Urine Glucose (UA) NEGATIVE (NEGATIVE) mg/dL Urine Ketones NEGATIVE (NEGATIVE) mg/dL Urine Occult Blood LARGE H (NEGATIVE) Urine Nitrite NEGATIVE (NEGATIVE) Urine Bilirubin NEGATIVE (NEGATIVE) Urine Urobilinogen 0.2 (NORMAL) (NORMAL) E.U./dL Ur Leukocyte Esterase SMALL H (NEGATIVE) Urine RBC 11-25 H (0-5) /HPF Urine WBC 6-10 H (0-5) /HPF Ur Squamous Epith Cells FEW Squamous (<= Few) Urine Bacteria Rare (None Seen) /HPF Urine Culture Comments INDICATED U Random Total Protein 19 mg/dL Nasal Adenovirus (PCR) Nasal B. parapertussis DNA (PCR) Nasal Coronavir 229E PCR Nasal Coronavir HKU1 PCR Nasal Coronavir NL63 PCR Nasal Coronavir OC43 PCR Nasal Enterovir/Rhinovir PCR Nasal Influenza B PCR Nasal Influenza A PCR Nasal Parainfluen 1 PCR Nasal Parainfluen 2 PCR Nasal Parainfluen 3 PCR Nasal Parainfluen 4 PCR Nasal RSV (PCR) Nasal B.pertussis DNA PCR Nasal C.pneumoniae (PCR) Andrew Human Metapneumo PCR Nasal M.pneumoniae (PCR) Nasal SARS-CoV-2 (PCR) ABX Reporting Has patient been on IV antibiotics over the past 48 hours?: Yes Sepsis Event Note (H) - Evaluation Current Stage of Sepsis: Sepsis Possible source of Sepsis: positive: Pulmonary, Genitourinary - Sepsis Criteria Sepsis Criteria: Recorded Temperature greater than 38.3C or Less than 36C, Recorded Heart Rate greater than 90 bpm, Recorded Respiratory Rate greater than 20, Respiratory: Increasing oxygen requirements Assessment/Plan - Problem List (1) Pulmonary edema Impression: new onset pulmonary edema by CXR. discused with Dr. Jackson Hartmann and she is consulting. lasix given. felt better after burp and motrin. planning CT and labs[facility] will still follow closely. I do not believe she has amniotic fluid embolus. Too late after delivery and not acute enough in onset. Coag labs pending. Qualifiers: Chronicity: acute Qualified Code(s): J81.0 - Acute pulmonary edema (2) Fever Impression: source not clear. blood cultures pending. does not seem to have endometritis by today's exam. Urine clear. will await cultures. she seems to be improving. will add Azithro as maybe pneumonia.
--- NOTE | 2023-12-19 18:54 | PROVIDER PROGRESS NOTE ---
Hospitalist Cross-cover Note - Cross-Cover Note Cross-Cover Note: The patient's CT scan came back showing no PE and she has a pneumonia Impression: Probable aspiration pneumonia Plan: I will stop her Zithromax as well as her Keflex and Gentamicin Start her on Ceftriaxone 2 g IV every 8h and Metronidazole 500 mg IV every [address] Mason and updated her with this plan Sputum culture was ordered. Blood cultures were already drawn yesterday. Await these results to tailor antibx.
[2023-12-19] MEDS: cefTRIAXone 2 GM in SODIUM CHLORIDE 0.9% MINIBAG 100 ML IV SCH (19:00)
[2023-12-19] MEDS: metroNIDAZOLE 500 MG/100 ML 500 MG/100 ML BAG IV SCH (20:03)
[2023-12-19] MEDS: FAMOTIDINE 20 MG/2 ML VIAL IVP SCH (20:58)
[2023-12-19] MEDS: INSULIN LISPRO 300 UNIT/3 ML PEN SUBQ SCH (20:59)
--- NOTE | 2023-12-19 23:53 | PROVIDER PROGRESS NOTE ---
Subjective - Prog Note Date Prog Note Date: 12/19/23 Prog Note Time: 23:50 - Subjective Pt reports feeling: Improved, No change Subjective: uncomfortable and tired. feeling a bit less good than after her 8 burps this after noon. spine bothering her from laying in bed. Objective - Vital Signs/Intake & Output Reviewed Vital Signs: Yes Vital Signs: Vital Signs x48h Temp Pulse Resp BP Pulse Ox 12/19/23 23:00 87 28 H 142/82 H 91 L 12/19/23 22:00 89 28 H 150/86 H 95 12/19/23 21:00 99.0 F 77 23 132/76 H 95 12/19/23 20:00 99.0 F 76 25 H 138/85 H 94 12/19/23 18:00 83 24 140/89 H 95 12/19/23 17:28 95 12/19/23 17:00 110 H 23 134/84 H 95 12/19/23 16:02 95 Intake & Output: Intake & Output 12/16/23 12/17/23 12/18/23 12/19/23 23:59 23:59 23:59 23:59 Intake Total 5817.56 Output Total 2725 Balance 3092.56 - Lab Results Fish Bones: 12/19/23 14:52 12/19/23 14:52 Other Labs: Lab Results x24hrs 12/19/23 12/19/23 12/19/23 Range/Units 20:43 17:55 17:36 WBC (4.8-10.8) x10^3/uL RBC (4.20-5.40) 10^6/uL Hgb (12.0-16.0) g/dL Hct (37.0-47.0) % MCV (81.0-99.0) fL MCH (27.0-31.0) pg MCHC (32.0-36.0) g/dL RDW (12.0-15.0) % Plt Count (130-450) 10^3/uL MPV (7.9-10.8) fL Neut # (Auto) (1.5-6.6) 10^3/uL Lymph # (Auto) (1.5-3.5) 10^3/uL [place] # (Auto) (0.0-1.0) 10^3/uL Eos # (Auto) (0.0-0.7) 10^3/uL Baso # (Auto) (0.0-0.1) 10^3/uL Absolute Nucleated RBC x10^3/uL Nucleated RBC % /100WBC PT (9.9-12.6) secs INR (0.8-1.2) D-Dimer (200.0-255.0) ng/mL Bld Gas Analysis Time Sample Site ABG pH (7.35-7.45) ABG pCO2 (34-45) mmHg ABG pO2 (80-100) mmHg ABG HCO3 (22.0-26.0) mmol/L ABG Total CO2 (21.0-29.0) MMOL/L ABG O2 Saturation (94-98) % ABG Base Excess (-2.0-3.0) mmol/L Anatoliy Test Room Air Sodium (135-145) mmol/L Potassium (3.5-4.5) mmol/L Chloride (101-111) mmol/L Carbon Dioxide (21-32) mmol/L Anion Gap (6-13) BUN (6-20) mg/dL Creatinine (0.6-1.3) mg/dL Estimated GFR (MDRD) (>89) Glucose (74-104) mg/dL POC Whole Bld Glucose 85 120 H (70 - 100) mg/dL Calcium (8.5-10.3) mg/dL Phosphorus (2.5-5.0) mg/dL Magnesium (1.7-2.3) mg/dL Total Bilirubin (0.2-1.0) mg/dL Direct Bilirubin (0.03-0.18) mg/dL AST (10-42) IU/L ALT (10-60) IU/L Alkaline Phosphatase (42-121) IU/L Troponin I High Sens (2.3-14.8) ng/L B-Natriuretic Peptide (5-100) pg/mL Total Protein (6.4-8.9) g/dL Albumin (3.2-5.5) g/dL Globulin (2.1-4.2) g/dL Urine Color Urine Clarity (CLEAR) Urine pH (5.0-7.5) PH Ur Specific [place] (1.002-1.030) Urine Protein (NEGATIVE) mg/dL Urine Glucose (UA) (NEGATIVE) mg/dL Urine Ketones (NEGATIVE) mg/dL Urine Occult Blood (NEGATIVE) Urine Nitrite (NEGATIVE) Urine Bilirubin (NEGATIVE) Urine Urobilinogen (NORMAL) E.U./dL Ur Leukocyte Esterase (NEGATIVE) Urine RBC (0-5) /HPF Urine WBC (0-5) /HPF Ur Squamous Epith Cells (<= Few) Urine Bacteria (None Seen) /HPF Urine Culture Comments U Random Total Protein mg/dL Nasal Screen MRSA (PCR) NEGATIVE (NEGATIVE) 12/19/23 12/19/23 12/19/23 Range/Units 16:15 16:11 16:11 WBC (4.8-10.8) x10^3/uL RBC (4.20-5.40) 10^6/uL Hgb (12.0-16.0) g/dL Hct (37.0-47.0) % MCV (81.0-99.0) fL MCH (27.0-31.0) pg MCHC (32.0-36.0) g/dL RDW (12.0-15.0) % Plt Count (130-450) 10^3/uL MPV (7.9-10.8) fL Neut # (Auto) (1.5-6.6) 10^3/uL Lymph # (Auto) (1.5-3.5) 10^3/uL [place] # (Auto) (0.0-1.0) 10^3/uL Eos # (Auto) (0.0-0.7) 10^3/uL Baso # (Auto) (0.0-0.1) 10^3/uL Absolute Nucleated RBC x10^3/uL Nucleated RBC % /100WBC PT 12.4 (9.9-12.6) secs INR 1.2 (0.8-1.2) D-Dimer 776.2 H (200.0-255.0) ng/mL Bld Gas Analysis Time 1626 Sample Site RIGHT RADIAL ABG pH 7.51 H (7.35-7.45) ABG pCO2 26 L (34-45) mmHg ABG pO2 68 L (80-100) mmHg ABG HCO3 20.3 L (22.0-26.0) mmol/L ABG Total CO2 21.1 (21.0-29.0) MMOL/L ABG O2 Saturation 94 (94-98) % ABG Base Excess -1.9 (-2.0-3.0) mmol/L Anatoliy Test POSITIVE Room Air YES Sodium (135-145) mmol/L Potassium (3.5-4.5) mmol/L Chloride (101-111) mmol/L Carbon Dioxide (21-32) mmol/L Anion Gap (6-13) BUN (6-20) mg/dL Creatinine (0.6-1.3) mg/dL Estimated GFR (MDRD) (>89) Glucose (74-104) mg/dL POC Whole Bld Glucose (70 - 100) mg/dL Calcium 8.6 (8.5-10.3) mg/dL Phosphorus 3.0 (2.5-5.0) mg/dL Magnesium 1.5 L (1.7-2.3) mg/dL Total Bilirubin 0.4 (0.2-1.0) mg/dL Direct Bilirubin < 0.10 (0.03-0.18) mg/dL AST 13 (10-42) IU/L ALT 12 (10-60) IU/L Alkaline Phosphatase 110 (42-121) IU/L Troponin I High Sens (2.3-14.8) ng/L B-Natriuretic Peptide (5-100) pg/mL Total Protein 6.2 L (6.4-8.9) g/dL Albumin 3.1 L (3.2-5.5) g/dL Globulin 3.1 (2.1-4.2) g/dL Urine Color Urine Clarity (CLEAR) Urine pH (5.0-7.5) PH Ur Specific [place] (1.002-1.030) Urine Protein (NEGATIVE) mg/dL Urine Glucose (UA) (NEGATIVE) mg/dL Urine Ketones (NEGATIVE) mg/dL Urine Occult Blood (NEGATIVE) Urine Nitrite (NEGATIVE) Urine Bilirubin (NEGATIVE) Urine Urobilinogen (NORMAL) E.U./dL Ur Leukocyte Esterase (NEGATIVE) Urine RBC (0-5) /HPF Urine WBC (0-5) /HPF Ur Squamous Epith Cells (<= Few) Urine Bacteria (None Seen) /HPF Urine Culture Comments U Random Total Protein mg/dL Nasal Screen MRSA (PCR) (NEGATIVE) 12/19/23 12/19/23 12/19/23 Range/Units 16:11 14:52 14:52 WBC (4.8-10.8) x10^3/uL RBC (4.20-5.40) 10^6/uL Hgb (12.0-16.0) g/dL Hct (37.0-47.0) % MCV (81.0-99.0) fL MCH (27.0-31.0) pg MCHC (32.0-36.0) g/dL RDW (12.0-15.0) % Plt Count (130-450) 10^3/uL MPV (7.9-10.8) fL Neut # (Auto) (1.5-6.6) 10^3/uL Lymph # (Auto) (1.5-3.5) 10^3/uL [place] # (Auto) (0.0-1.0) 10^3/uL Eos # (Auto) (0.0-0.7) 10^3/uL Baso # (Auto) (0.0-0.1) 10^3/uL Absolute Nucleated RBC x10^3/uL Nucleated RBC % /100WBC PT (9.9-12.6) secs INR (0.8-1.2) D-Dimer (200.0-255.0) ng/mL Bld Gas Analysis Time Sample Site ABG pH (7.35-7.45) ABG pCO2 (34-45) mmHg ABG pO2 (80-100) mmHg ABG HCO3 (22.0-26.0) mmol/L ABG Total CO2 (21.0-29.0) MMOL/L ABG O2 Saturation (94-98) % ABG Base Excess (-2.0-3.0) mmol/L Anatoliy Test Room Air Sodium 141 (135-145) mmol/L Potassium 3.8 (3.5-4.5) mmol/L Chloride 109 (101-111) mmol/L Carbon Dioxide 21 (21-32) mmol/L Anion Gap 11.0 (6-13) BUN 8 (6-20) mg/dL Creatinine 0.7 (0.6-1.3) mg/dL Estimated GFR (MDRD) 100 (>89) Glucose 94 (74-104) mg/dL POC Whole Bld Glucose (70 - 100) mg/dL Calcium 8.9 (8.5-10.3) mg/dL Phosphorus (2.5-5.0) mg/dL Magnesium (1.7-2.3) mg/dL Total Bilirubin (0.2-1.0) mg/dL Direct Bilirubin (0.03-0.18) mg/dL AST (10-42) IU/L ALT (10-60) IU/L Alkaline Phosphatase (42-121) IU/L Troponin I High Sens 33.9 H* 28.0 H* (2.3-14.8) ng/L B-Natriuretic Peptide 575 H (5-100) pg/mL Total Protein (6.4-8.9) g/dL Albumin (3.2-5.5) g/dL Globulin (2.1-4.2) g/dL Urine Color Urine Clarity (CLEAR) Urine pH (5.0-7.5) PH Ur Specific [place] (1.002-1.030) Urine Protein (NEGATIVE) mg/dL Urine Glucose (UA) (NEGATIVE) mg/dL Urine Ketones (NEGATIVE) mg/dL Urine Occult Blood (NEGATIVE) Urine Nitrite (NEGATIVE) Urine Bilirubin (NEGATIVE) Urine Urobilinogen (NORMAL) E.U./dL Ur Leukocyte Esterase (NEGATIVE) Urine RBC (0-5) /HPF Urine WBC (0-5) /HPF Ur Squamous Epith Cells (<= Few) Urine Bacteria (None Seen) /HPF Urine Culture Comments U Random Total Protein mg/dL Nasal Screen MRSA (PCR) (NEGATIVE) 12/19/23 12/18/23 12/18/23 Range/Units 14:52 02:30 02:30 WBC 10.7 (4.8-10.8) x10^3/uL RBC 3.99 L (4.20-5.40) 10^6/uL Hgb 11.1 L (12.0-16.0) g/dL Hct 35.4 L (37.0-47.0) % MCV 88.7 (81.0-99.0) fL MCH 27.8 (27.0-31.0) pg MCHC 31.4 L (32.0-36.0) g/dL RDW 14.3 (12.0-15.0) % Plt Count 370 (130-450) 10^3/uL MPV 10.5 (7.9-10.8) fL Neut # (Auto) 8.9 H (1.5-6.6) 10^3/uL Lymph # (Auto) 1.1 L (1.5-3.5) 10^3/uL [place] # (Auto) 0.5 (0.0-1.0) 10^3/uL Eos # (Auto) 0.1 (0.0-0.7) 10^3/uL Baso # (Auto) 0.1 (0.0-0.1) 10^3/uL Absolute Nucleated RBC 0.00 x10^3/uL Nucleated RBC % 0.0 /100WBC PT (9.9-12.6) secs INR (0.8-1.2) D-Dimer (200.0-255.0) ng/mL Bld Gas Analysis Time Sample Site ABG pH (7.35-7.45) ABG pCO2 (34-45) mmHg ABG pO2 (80-100) mmHg ABG HCO3 (22.0-26.0) mmol/L ABG Total CO2 (21.0-29.0) MMOL/L ABG O2 Saturation (94-98) % ABG Base Excess (-2.0-3.0) mmol/L Anatoliy Test Room Air Sodium (135-145) mmol/L Potassium (3.5-4.5) mmol/L Chloride (101-111) mmol/L Carbon Dioxide (21-32) mmol/L Anion Gap (6-13) BUN (6-20) mg/dL Creatinine (0.6-1.3) mg/dL Estimated GFR (MDRD) (>89) Glucose (74-104) mg/dL POC Whole Bld Glucose (70 - 100) mg/dL Calcium (8.5-10.3) mg/dL Phosphorus (2.5-5.0) mg/dL Magnesium (1.7-2.3) mg/dL Total Bilirubin (0.2-1.0) mg/dL Direct Bilirubin (0.03-0.18) mg/dL AST (10-42) IU/L ALT (10-60) IU/L Alkaline Phosphatase (42-121) IU/L Troponin I High Sens (2.3-14.8) ng/L B-Natriuretic Peptide (5-100) pg/mL Total Protein (6.4-8.9) g/dL Albumin (3.2-5.5) g/dL Globulin (2.1-4.2) g/dL Urine Color YELLOW Urine Clarity HAZY (CLEAR) Urine pH 6.0 (5.0-7.5) PH Ur Specific [place] <=1.005 (1.002-1.030) Urine Protein NEGATIVE (NEGATIVE) mg/dL Urine Glucose (UA) NEGATIVE (NEGATIVE) mg/dL Urine Ketones NEGATIVE (NEGATIVE) mg/dL Urine Occult Blood LARGE H (NEGATIVE) Urine Nitrite NEGATIVE (NEGATIVE) Urine Bilirubin NEGATIVE (NEGATIVE) Urine Urobilinogen 0.2 (NORMAL) (NORMAL) E.U./dL Ur Leukocyte Esterase SMALL H (NEGATIVE) Urine RBC 11-25 H (0-5) /HPF Urine WBC 6-10 H (0-5) /HPF Ur Squamous Epith Cells FEW Squamous (<= Few) Urine Bacteria Rare (None Seen) /HPF Urine Culture Comments INDICATED U Random Total Protein 19 mg/dL Nasal Screen MRSA (PCR) (NEGATIVE) Sepsis Event Note (H) - Evaluation Current Stage of Sepsis: Sepsis Possible source of Sepsis: positive: Pulmonary, Genitourinary - Sepsis Criteria Sepsis Criteria: Recorded Temperature greater than 38.3C or Less than 36C, Recorded Heart Rate greater than 90 bpm, Recorded Respiratory Rate greater than 20, Respiratory: Increasing oxygen requirements Assessment/Plan - Problem List (1) Pulmonary edema Impression: also with aspiration pneumonia. still with some issue breathing. overall doing better. afebrile. bps stable. pulse was up to 110 when I was in room. encouraged her to get some sleep. Qualifiers: Chronicity: acute Qualified Code(s): J81.0 - Acute pulmonary edema
[2023-12-20] MEDS: IBUPROFEN 600 MG TABLET PO PRN ×2 (01:35→16:13)
[2023-12-20] MEDS: ACETAMINOPHEN 500 MG TABLET PO PRN (02:05)
[2023-12-20] MEDS: metroNIDAZOLE 500 MG/100 ML 500 MG/100 ML BAG IV SCH ×3 (02:46→18:31)
[2023-12-20 04:30] LABS: BASOPHILS # (AUTO) 0.1 10^3/uL (0.0-0.1); BASOPHILS % (AUTO) 0.6 %; EOSINOPHILS # (AUTO) 0.2 10^3/uL (0.0-0.7); EOSINOPHILS % (AUTO) 1.9 %; HCT - HEMATOCRIT 28.5 % (37.0-47.0); HGB - HEMOGLOBIN 8.8 g/dL (12.0-16.0); LYMPHOCYTES # (AUTO) 1.2 10^3/uL (1.5-3.5); LYMPHOCYTES % (AUTO) 11.3 %; MEAN CORPUSCULAR HEMOGLOBIN 27.6 pg (27.0-31.0); MEAN CORPUSCULAR HGB CONC 30.9 g/dL (32.0-36.0); MEAN CORPUSCULAR VOLUME 89.3 fL (81.0-99.0); MEAN PLATELET VOLUME 10.4 fL (7.9-10.8); MONOCYTES # (AUTO) 0.8 10^3/uL (0.0-1.0); MONOCYTES % (AUTO) 7.3 %; NEUTROPHILS # (AUTO) 8.1 10^3/uL (1.5-6.6); NEUTROPHILS % (AUTO) 78.2 %; PLT - PLATELET COUNT 359 10^3/uL (130-450); RED BLOOD COUNT 3.19 10^6/uL (4.20-5.40); RED CELL DISTRIBUTION WIDTH 14.6 % (12.0-15.0); WHITE BLOOD COUNT 10.3 x10^3/uL (4.8-10.8)
[2023-12-20 04:47] LABS: CALCIUM 8.3 mg/dL (8.5-10.3); CREATININE 0.8 mg/dL (0.6-1.3); MAGNESIUM 1.6 mg/dL (1.7-2.3); PHOSPHORUS 3.9 mg/dL (2.5-5.0); POTASSIUM 3.4 mmol/L (3.5-4.5)
[2023-12-20 05:07] LABS: CALCIUM, IONIZED 1.07 mmol/L (1.15-1.33); VBG PH 7.482 (7.31-7.41)
[2023-12-20] MEDS ORDERED: MAGNESIUM OXIDE 400 MG TABLET PO ONE (05:22)
[2023-12-20] MEDS: CALCIUM CARBONATE CHEW 500 MG TABLET PO SCH ×2 (06:01→10:06)
[2023-12-20] MEDS: POTASSIUM CHLORIDE 20 MEQ TABLET PO SCH ×2 (06:01→08:40)
[2023-12-20] MEDS: LABETALOL 100 MG TABLET PO SCH ×3 (06:01→21:43)
[2023-12-20] MEDS: cefTRIAXone 2 GM in SODIUM CHLORIDE 0.9% MINIBAG 100 ML IV SCH (08:40)
[2023-12-20] MEDS: ENOXAPARIN 40 MG/0.4 ML SYRINGE SUBQ SCH (08:40)
[2023-12-20] MEDS: FAMOTIDINE 20 MG/2 ML VIAL IVP SCH ×2 (08:40→21:43)
[2023-12-20] MEDS: CHOLECALCIFEROL 25 MCG TABLET PO SCH (08:40)
[2023-12-20] MEDS: SODIUM CHLORIDE FLUSH 0.9% 10 ML SYRINGE IVP SCH ×2 (08:41→18:31)
[2023-12-20] MEDS: INSULIN LISPRO 300 UNIT/3 ML PEN SUBQ SCH ×4 (08:41→21:00)
[2023-12-20] MEDS ORDERED: AZITHROMYCIN INJ 500 MG in SODIUM CHLORIDE 0.9% 250 ML IV SCH (09:00)
[2023-12-20 09:38] LABS: ESTIMATED AVERAGE GLUCOSE 123 mg/dL (70-100); HEMOGLOBIN A1c% 5.9 % (4.27-6.07)
--- NOTE | 2023-12-20 11:22 | PROVIDER PROGRESS NOTE ---
Assessment/Plan - Problem List (1) Aspiration pneumonia Assessment/Plan: Patient herself stated several times that this shortness of breath felt different yesterday than when she has an asthma attack. Her Hx was signif for 2 episodes of vomiting during the vaginal delivery, due to Fentanyl, several days previously. Her admission CXR had subtle interstitial changes perihilar which could be pulmonary edema or viral findings. With yesterday's worsening shortness of breath and rales, a repeat chest x-ray was done that was read as having moderate pulmonary edema and a amniotic fluid embolus could not be ruled out. She was moved to ICU and had a chest CT. That was read as having aspiration PNA and no PE was seen. Her troponins ruled her out for an TX She was given a dose of Lasix 20 mg IV x1 yesterday to treat the pulmonary edema. She had antibx changed to Ceftriaxone 2 g IV every 8h and Metronidazole 500 mg IV every 8 H Her O2 needs did not worsen overnight Recommend: She can be transferred out of ICU to [facility], no telemetry needed. She will be back on OBGYN service therefore Remain off the saline infusion and will stop the daily fluid restriction No more Lasix needed Cont empiric iv Ceftriaxone and iv Flagyl today and tomorrow. On Mon she can be transitioned to oral Augmentin 875 BID. I spoke to pharmacy today about pt pumping her breast milk and feeding it to baby, and there is no concern. Supply oxygen to keep O2 saturations greater than 92%, can be titrated down to room air. I discussed the plan today with Dr. Mason of [facility] (2) Anemia Conclusion/Plan: Hgb was 8 at adm then went up to 11 yesterday, so I cancelled the iv Iron Dextran ordered by OBGYN yesterday Today Hgb again is 8. So possibly the 11 was a lab error or from signif vasoco nstriction Recommend: Will order a dose of iv Iron Dextran. Discussed today with Dr Marlon HOANG (3) Transient hypertension during , Conclusion/Plan: Patient was diagnosed with pre-eclampsia. When she came to the ER several days ago she was hypertensive and discharged home on Labetalol Recommend: Continue with blood pressure meds for hypertension control Monitor vital sign checks q 4h (4) Endometritis Conclusion/Plan: The fever which caused her to come to the ER and workup by [facility], was felt to be endometritis and she was started on empiric antibiotics Recommend: Antibiotic changes will cover for endometritis Other OBGYN management as per [facility] service (5) Gestational diabetes Conclusion/Plan: As per history. her A1c came back at 5.9 Recommend: Follow her glucose via fingerstick checks and cont a sliding scale insulin schedule for coverage another day. Will stop those orders tomorrow if glu remains in acceptable range. (6) Asthma Conclusion/Plan: She normally uses albuterol only as needed, not scheduled and only gets asthma attacks seasonally Her exam during yesterday's resp exacerbation was not consistent with asthma and she herself said this did not feel like her asthma attack Recommend: Continue with nebulized bronchodilators just PRN - Current Meds Current Meds: Current Medications Generic Name Dose Route Start Last Admin Trade Name Freq PRN Reason Stop Dose Admin Acetaminophen 1,000 mg 12/19/23 00:32 12/20/23 02:05 Acetaminophen 500 Mg Tablet PO 1,000 mg Q6H PRN Administration Pain or Fever > 38C (100.4F) Albuterol 2.5 mg 12/19/23 04:58 12/19/23 05:30 Albuterol Neb 2.5 Mg/3 Ml INH 2.5 mg RTQ6H PRN Administration Shortness of Air/Wheezing Cholecalciferol 50 mcg 12/19/23 17:00 12/20/23 08:40 Cholecalciferol 25 Mcg Tablet PO 50 mcg DAILY CASSY Administration Enoxaparin Sodium 40 mg 12/19/23 09:00 12/20/23 08:40 Enoxaparin 40 Mg/0.4 Ml Syringe SUBQ 40 mg DAILY CASSY Administration Famotidine 20 mg 12/19/23 21:00 12/20/23 08:40 Famotidine 20 Mg/2 Ml Vial IVP 20 mg BID CASSY Administration Ceftriaxone Sodium 2 gm/ 100 mls @ 200 mls/hr 12/19/23 18:49 12/20/23 08:40 Sodium Chloride IV 200 mls/hr DAILY CASSY Administration Metronidazole 500 mg in 100 mls @ 100 mls/hr 12/19/23 19:00 12/20/23 10:07 Flagyl 500 Mg/100 Ml IV 100 mls/hr Q8H CASSY Administration Ibuprofen 600 mg 12/19/23 00:32 12/20/23 01:35 Ibuprofen 600 Mg Tablet PO 600 mg Q6H PRN Administration PAIN 1-4 Insulin Human Lispro 1 - 5 unit 12/19/23 21:00 12/20/23 08:41 Insulin Lispro 300 Unit/3 Ml Pen SUBQ Not Given 0800,1200,1700,2100 [facility] Protocol Labetalol HCl 200 mg 12/19/23 15:00 12/20/23 06:01 Labetalol 100 Mg Tablet PO 200 mg TID CASSY Administration Sodium Chloride 10 ml 12/19/23 17:00 12/20/23 08:41 Sodium Chloride Flush 0.9% 10 Ml Syringe IVP 10 ml 0100,0900,1700 CASSY Administration Sodium Chloride 10 ml 12/19/23 15:48 12/20/23 02:46 Sodium Chloride Flush 0.9% 10 Ml Syringe IVP 10 ml PRN PRN Administration NEEDED PER PROVIDER ORDERS - Lab Result Fish Bone Diagrams: 12/20/23 04:21 12/20/23 04:21 - Additional Planning My Orders: My Active Orders 12/19/23 15:48 Activity Orders (ICU) [RC] Q2HR Daily Weight [RC] 0600 Fluid Restriction [RC] IOSHIFT IO [RC] IOSHIFT Initiate Bowel Care Protocol [RC] QSHIFT Initiate ICU Electrolyte Prot. [RC] .protocol Initiate Line Care Protocol [RC] .protocol Initiate Personal Care Protoco [RC] .protocol Initiate Progressive Mobility Protocol [RC] 0800,2000 Vital Signs [RC] Q8H Morphine Inj (Carpuject) [Morphine (Carpuject)] 1 mg IVP Q2HR PRN Sodium Chloride Flush 0.9% [Normal Saline Flush 0.9%] 10 ml IVP PRN PRN 12/19/23 15:49 Miscellaenous Nursing Order [RC] QSHIFT Telemetry- [RC] Q4HR 12/19/23 16:02 Continuous Pulse Oximetry [RC] CONT 12/19/23 17:00 Sodium Chloride Flush 0.9% [Normal Saline Flush 0.9%] 10 ml IVP 0100,0900,1700 12/19/23 17:26 Blood Glucose Checks - Eating [RC] 0800,1200,1700,2100 Initiate Hypoglycemia Protocol [RC] .protocol 12/19/23 18:49 cefTRIAXone [Rocephin] 2 gm Sodium Chloride 0.9% Minibag [Normal Saline 0.9% Minibag] 100 ml IV DAILY 12/19/23 19:00 metroNIDAZOLE 500 MG/100 ML [Flagyl 500 mg/100 ml] 500 mg in 100 ml IV Q8H 12/19/23 21:00 Famotidine [Pepcid] 20 mg IVP BID Insulin Lispro [Humalog Kwikpen U-100] 1 - 5 unit SUBQ 0800,1200,1700,2100 12/20/23 07:26 Miscellaenous Nursing Order [RC] QSHIFT 12/20/23 07:27 Transfer [Admit \\ Transfer \\ Status] [RC] .ONCE 12/20/23 13:00 Iron Dextran [Infed] 1,000 mg Sodium Chloride 0.9% [Normal Saline 0.9%] 250 ml IV ONCE Subjective - Subjective Patient Reports: Feeling Better (Not short of breath, still feels "stiffness" like she gets from her asthma attacks) Objective Vital Signs: Vital Signs - 24 hr 12/19/23 12/19/23 12/19/23 14:21 15:37 16:02 Temperature 37.7 C 38.4 C H Heart Rate [ 90 Brachial] Respiratory 18 Rate Blood Pressure 164/85 H [Left Brachial artery] Blood Pressure [Left Radial artery] O2 Saturation 89 L 95 If not protocol : Oxygen Flow, liters/minute 12/19/23 12/19/23 12/19/23 17:00 17:28 18:00 Temperature Heart Rate [ 110 H 83 Brachial] Respiratory 23 24 Rate Blood Pressure 134/84 H 140/89 H [Left Brachial artery] Blood Pressure [Left Radial artery] O2 Saturation 95 95 95 If not protocol : Oxygen Flow, liters/minute 12/19/23 12/19/23 12/19/23 20:00 21:00 22:00 Temperature 37.2 C 37.2 C Heart Rate [ 76 77 89 Brachial] Respiratory 25 H 23 28 H Rate Blood Pressure 138/85 H 132/76 H 150/86 H [Left Brachial artery] Blood Pressure [Left Radial artery] O2 Saturation 94 95 95 If not protocol : Oxygen Flow, liters/minute 12/19/23 12/20/23 12/20/23 23:00 00:00 01:00 Temperature Heart Rate [ 87 95 104 H Brachial] Respiratory 28 H 32 H 28 H Rate Blood Pressure 142/82 H 125/73 120/71 [Left Brachial artery] Blood Pressure [Left Radial artery] O2 Saturation 91 L 91 L 90 L If not protocol : Oxygen Flow, liters/minute 12/20/23 12/20/23 12/20/23 01:38 02:00 02:35 Temperature 38.2 C H 38.1 C H 37.8 C Heart Rate [ 97 Brachial] Respiratory 33 H Rate Blood Pressure [Left Brachial artery] Blood Pressure 145/80 H [Left Radial artery] O2 Saturation 94 If not protocol 2 : Oxygen Flow, liters/minute 12/20/23 12/20/23 12/20/23 03:00 04:00 04:20 Temperature 37.8 C 37.0 C Heart Rate [ 93 81 Brachial] Respiratory 27 H 24 Rate Blood Pressure [Left Brachial artery] Blood Pressure 124/78 132/81 H [Left Radial artery] O2 Saturation 96 96 If not protocol 2 2 : Oxygen Flow, liters/minute 12/20/23 12/20/23 12/20/23 05:00 06:00 07:00 Temperature Heart Rate [ 81 86 69 Brachial] Respiratory 22 19 21 Rate Blood Pressure [Left Brachial artery] Blood Pressure 137/87 H 126/81 H 133/83 H [Left Radial artery] O2 Saturation 96 97 97 If not protocol 2 2 2 : Oxygen Flow, liters/minute 12/20/23 12/20/23 12/20/23 07:37 08:00 09:00 Temperature 36.7 C Heart Rate [ 81 100 Brachial] Respiratory 25 H 32 H Rate Blood Pressure [Left Brachial artery] Blood Pressure 124/86 H [Left Radial artery] O2 Saturation 98 97 If not protocol 2 2 : Oxygen Flow, liters/minute Oxygen O2 Source Room air I&O (Last 24 Hrs): Intake and Output Totals x24h 12/18/23 12/19/23 12/20/23 23:59 23:59 23:59 Intake Total 5817.56 670 Output Total 2725 900 Balance 3092.56 -230 General: Alert, Oriented x3 HEENT: EOMI, Mucous membr. moist/pink Neck: Supple, No JVD Neuro: Alert, Non Focal Cardiovascular: Regular rate Respiratory: Rales (R base, Good air movement, no wheezing) Abdomen: Soft, No tenderness Extremities: No clubbing, No edema, No tenderness/swelling - Results Results: Laboratory Results WBC 10.3 x10^3/uL (4.8-10.8) 12/20/23 04:21 RBC 3.19 10^6/uL (4.20-5.40) L 12/20/23 04:21 Hgb 8.8 g/dL (12.0-16.0) L 12/20/23 04:21 Hct 28.5 % (37.0-47.0) L 12/20/23 04:21 MCV 89.3 fL (81.0-99.0) 12/20/23 04:21 MCH 27.6 pg (27.0-31.0) 12/20/23 04:21 MCHC 30.9 g/dL (32.0-36.0) L 12/20/23 04:21 RDW 14.6 % (12.0-15.0) 12/20/23 04:21 Plt Count 359 10^3/uL (130-450) 12/20/23 04:21 MPV 10.4 fL (7.9-10.8) 12/20/23 04:21 Neut # (Auto) 8.1 10^3/uL (1.5-6.6) H 12/20/23 04:21 Lymph # (Auto) 1.2 10^3/uL (1.5-3.5) L 12/20/23 04:21 Emery # (Auto) 0.8 10^3/uL (0.0-1.0) 12/20/23 04:21 Eos # (Auto) 0.2 10^3/uL (0.0-0.7) 12/20/23 04:21 Baso # (Auto) 0.1 10^3/uL (0.0-0.1) 12/20/23 04:21 Absolute Nucleated RBC 0.00 x10^3/uL 12/20/23 04:21 Nucleated RBC % 0.0 /100WBC 12/20/23 04:21 PT 12.4 secs (9.9-12.6) 12/19/23 16:11 INR 1.2 (0.8-1.2) 12/19/23 16:11 D-Dimer 776.2 ng/mL (200.0-255.0) H 12/19/23 16:11 Bld Gas Analysis Time 1626 12/19/23 16:15 Sample Site RIGHT RADIAL 12/19/23 16:15 ABG pH 7.51 (7.35-7.45) H 12/19/23 16:15 ABG pCO2 26 mmHg (34-45) L 12/19/23 16:15 ABG pO2 68 mmHg (80-100) L 12/19/23 16:15 ABG HCO3 20.3 mmol/L (22.0-26.0) L 12/19/23 16:15 ABG Total CO2 21.1 MMOL/L (21.0-29.0) 12/19/23 16:15 ABG O2 Saturation 94 % (94-98) 12/19/23 16:15 ABG Base Excess -1.9 mmol/L (-2.0-3.0) 12/19/23 16:15 Anatoliy Test POSITIVE 12/19/23 16:15 VBG pH 7.482 (7.31-7.41) H 12/20/23 04:21 Ionized Calcium 1.07 mmol/L (1.15-1.33) L 12/20/23 04:21 Room Air YES 12/19/23 16:15 Sodium 140 mmol/L (135-145) 12/20/23 04:21 Potassium 3.4 mmol/L (3.5-4.5) L 12/20/23 04:21 Chloride 109 mmol/L (101-111) 12/20/23 04:21 Carbon Dioxide 21 mmol/L (21-32) 12/20/23 04:21 Anion Gap 10.0 (6-13) 12/20/23 04:21 BUN 9 mg/dL (6-20) 12/20/23 04:21 Creatinine 0.8 mg/dL (0.6-1.3) 12/20/23 04:21 Estimated GFR (MDRD) 85 (>89) L 12/20/23 04:21 Glucose 108 mg/dL (74-104) H 12/20/23 04:21 POC Whole Bld Glucose 81 mg/dL (70 - 100) 12/20/23 08:03 Estimat Average Glucose 123 mg/dL (70-100) H 12/20/23 04:21 Hemoglobin A1c % 5.9 % (4.27-6.07) 12/20/23 04:21 Lactic Acid 1.5 mmol/L (0.5-2.2) 12/18/23 22:27 Calcium 8.3 mg/dL (8.5-10.3) L 12/20/23 04:21 Phosphorus 3.9 mg/dL (2.5-5.0) 12/20/23 04:21 Magnesium 1.6 mg/dL (1.7-2.3) L 12/20/23 04:21 Total Bilirubin 0.4 mg/dL (0.2-1.0) 12/19/23 16:11 Direct Bilirubin < 0.10 mg/dL (0.03-0.18) 12/19/23 16:11 AST 13 IU/L (10-42) 12/19/23 16:11 ALT 12 IU/L (10-60) 12/19/23 16:11 Alkaline Phosphatase 110 IU/L (42-121) 12/19/23 16:11 Troponin I High Sens 33.9 ng/L (2.3-14.8) H* 12/19/23 16:11 B-Natriuretic Peptide 575 pg/mL (5-100) H 12/19/23 14:52 Total Protein 6.2 g/dL (6.4-8.9) L 12/19/23 16:11 Albumin 3.1 g/dL (3.2-5.5) L 12/19/23 16:11 Globulin 3.1 g/dL (2.1-4.2) 12/19/23 16:11 Albumin/Globulin Ratio 1.0 (1.0-2.2) 12/18/23 22:27 Urine Color YELLOW 12/18/23 02:30 Urine Clarity HAZY (CLEAR) 12/18/23 02:30 Urine pH 6.0 PH (5.0-7.5) 12/18/23 02:30 Ur Specific Victor <=1.005 (1.002-1.030) 12/18/23 02:30 Urine Protein NEGATIVE mg/dL (NEGATIVE) 12/18/23 02:30 Urine Glucose (UA) NEGATIVE mg/dL (NEGATIVE) 12/18/23 02:30 Urine Ketones NEGATIVE mg/dL (NEGATIVE) 12/18/23 02:30 Urine Occult Blood LARGE (NEGATIVE) H 12/18/23 02:30 Urine Nitrite NEGATIVE (NEGATIVE) 12/18/23 02:30 Urine Bilirubin NEGATIVE (NEGATIVE) 12/18/23 02:30 Urine Urobilinogen 0.2 (NORMAL) E.U./dL (NORMAL) 12/18/23 02:30 Ur Leukocyte Esterase SMALL (NEGATIVE) H 12/18/23 02:30 Urine RBC 11-25 /HPF (0-5) H 12/18/23 02:30 Urine WBC 6-10 /HPF (0-5) H 12/18/23 02:30 Ur Squamous Epith Cells FEW Squamous (<= Few) 12/18/23 02:30 Urine Bacteria Rare /HPF (None Seen) 12/18/23 02:30 Urine Culture Comments INDICATED 12/18/23 02:30 U Random Total Protein 19 mg/dL 12/18/23 02:30 Nasal Adenovirus (PCR) NOT DETECTED 12/18/23 22:38 Nasal B. parapertussis DNA (PCR) NOT DETECTED 12/18/23 22:38 Nasal Coronavir 229E PCR NOT DETECTED 12/18/23 22:38 Nasal Coronavir HKU1 PCR NOT DETECTED 12/18/23 22:38 Nasal Coronavir NL63 PCR NOT DETECTED 12/18/23 22:38 Nasal Coronavir OC43 PCR NOT DETECTED 12/18/23 22:38 Nasal Enterovir/Rhinovir PCR NOT DETECTED 12/18/23 22:38 Nasal Influenza B PCR NOT DETECTED 12/18/23 22:38 Nasal Influenza A PCR NOT DETECTED 12/18/23 22:38 Nasal Parainfluen 1 PCR NOT DETECTED 12/18/23 22:38 Nasal Parainfluen 2 PCR NOT DETECTED 12/18/23 22:38 Nasal Parainfluen 3 PCR NOT DETECTED 12/18/23 22:38 Nasal Parainfluen 4 PCR NOT DETECTED 12/18/23 22:38 Nasal RSV (PCR) NOT DETECTED 12/18/23 22:38 Nasal Screen MRSA (PCR) NEGATIVE (NEGATIVE) 12/19/23 17:55 Nasal B.pertussis DNA PCR NOT DETECTED 12/18/23 22:38 Nasal C.pneumoniae (PCR) NOT DETECTED 12/18/23 22:38 Andrew Human Metapneumo PCR NOT DETECTED 12/18/23 22:38 Nasal M.pneumoniae (PCR) NOT DETECTED 12/18/23 22:38 Nasal SARS-CoV-2 (PCR) NOT DETECTED 12/18/23 22:38 Sepsis Event Note (H) - Evaluation Current Stage of Sepsis: Sepsis Possible source of Sepsis: positive: Pulmonary, Genitourinary - Sepsis Criteria Sepsis Criteria: Recorded Temperature greater than 38.3C or Less than 36C, Recorded Heart Rate greater than 90 bpm, Recorded Respiratory Rate greater than 20, Respiratory: Increasing oxygen requirements
--- NOTE | 2023-12-20 11:53 | PROVIDER PROGRESS NOTE ---
Subjective - Prog Note Date Prog Note Date: 12/20/23 Prog Note Time: 11:47 - Subjective Pt reports feeling: Improved Subjective: feeling much better. eating well but slowly. breast feeding going well. did get some sleep. mom and dad in room with her. transferred out of ICU so back on my service. my summary of events. 1. admitted for presumed endometritis but seems that was never the case. fevers from pneumonia, likely from aspiration during labor. that is improving on ceftriaxone and metronidazole iv. 2. episode of flash pulmonary edema that sent her to ICU seems resolved now. hct went from 28 to 35 with her extreme vasoconstriction back to 28. bp was up. now things are better. breathing more comfortably. I don't think she needs fluid restriction any longer. will give lasix as needed for bp elevations. 3. significant anemia, not unusual post . will give iv iron. 4. breast feeding and that is going well. uterus seems normal for post . On lovenox for clot prevention. increased risk of this being post . Objective - Vital Signs/Intake & Output Vital Signs: Vital Signs x48h Temp Pulse Resp BP Pulse Ox O2 Flow Rate 12/20/23 09:00 100 32 H 97 12/20/23 08:00 98.1 F 81 25 H 124/86 H 98 2 12/20/23 07:37 2 12/20/23 07:00 69 21 133/83 H 97 2 12/20/23 06:00 86 19 126/81 H 97 2 12/20/23 05:00 81 22 137/87 H 96 2 12/20/23 04:20 98.6 F 12/20/23 04:00 81 24 132/81 H 96 2 Intake & Output: Intake & Output 12/17/23 12/18/23 12/19/23 12/20/23 23:59 23:59 23:59 23:59 Intake Total 5817.56 670 Output Total 2725 900 Balance 3092.56 -230 - Lab Results Fish Bones: 12/20/23 04:21 12/20/23 04:21 Other Labs: Lab Results x24hrs 12/20/23 12/20/23 12/20/23 Range/Units 08:03 04:21 04:21 WBC (4.8-10.8) x10^3/uL RBC (4.20-5.40) 10^6/uL Hgb (12.0-16.0) g/dL Hct (37.0-47.0) % MCV (81.0-99.0) fL MCH (27.0-31.0) pg MCHC (32.0-36.0) g/dL RDW (12.0-15.0) % Plt Count (130-450) 10^3/uL MPV (7.9-10.8) fL Neut # (Auto) (1.5-6.6) 10^3/uL Lymph # (Auto) (1.5-3.5) 10^3/uL [place] # (Auto) (0.0-1.0) 10^3/uL Eos # (Auto) (0.0-0.7) 10^3/uL Baso # (Auto) (0.0-0.1) 10^3/uL Absolute Nucleated RBC x10^3/uL Nucleated RBC % /100WBC PT (9.9-12.6) secs INR (0.8-1.2) D-Dimer (200.0-255.0) ng/mL Bld Gas Analysis Time Sample Site ABG pH (7.35-7.45) ABG pCO2 (34-45) mmHg ABG pO2 (80-100) mmHg ABG HCO3 (22.0-26.0) mmol/L ABG Total CO2 (21.0-29.0) MMOL/L ABG O2 Saturation (94-98) % ABG Base Excess (-2.0-3.0) mmol/L Anatoliy Test VBG pH 7.482 H (7.31-7.41) Ionized Calcium 1.07 L (1.15-1.33) mmol/L Room Air Sodium (135-145) mmol/L Potassium (3.5-4.5) mmol/L Chloride (101-111) mmol/L Carbon Dioxide (21-32) mmol/L Anion Gap (6-13) BUN (6-20) mg/dL Creatinine (0.6-1.3) mg/dL Estimated GFR (MDRD) (>89) Glucose (74-104) mg/dL POC Whole Bld Glucose 81 (70 - 100) mg/dL Estimat Average Glucose 123 H (70-100) mg/dL Hemoglobin A1c % 5.9 (4.27-6.07) % Calcium (8.5-10.3) mg/dL Phosphorus (2.5-5.0) mg/dL Magnesium (1.7-2.3) mg/dL Total Bilirubin (0.2-1.0) mg/dL Direct Bilirubin (0.03-0.18) mg/dL AST (10-42) IU/L ALT (10-60) IU/L Alkaline Phosphatase (42-121) IU/L Troponin I High Sens (2.3-14.8) ng/L B-Natriuretic Peptide (5-100) pg/mL Total Protein (6.4-8.9) g/dL Albumin (3.2-5.5) g/dL Globulin (2.1-4.2) g/dL Nasal Screen MRSA (PCR) (NEGATIVE) 12/20/23 12/20/23 12/19/23 Range/Units 04:21 04:21 20:43 WBC 10.3 (4.8-10.8) x10^3/uL RBC 3.19 L (4.20-5.40) 10^6/uL Hgb 8.8 L (12.0-16.0) g/dL Hct 28.5 L (37.0-47.0) % MCV 89.3 (81.0-99.0) fL MCH 27.6 (27.0-31.0) pg MCHC 30.9 L (32.0-36.0) g/dL RDW 14.6 (12.0-15.0) % Plt Count 359 (130-450) 10^3/uL MPV 10.4 (7.9-10.8) fL Neut # (Auto) 8.1 H (1.5-6.6) 10^3/uL Lymph # (Auto) 1.2 L (1.5-3.5) 10^3/uL [place] # (Auto) 0.8 (0.0-1.0) 10^3/uL Eos # (Auto) 0.2 (0.0-0.7) 10^3/uL Baso # (Auto) 0.1 (0.0-0.1) 10^3/uL Absolute Nucleated RBC 0.00 x10^3/uL Nucleated RBC % 0.0 /100WBC PT (9.9-12.6) secs INR (0.8-1.2) D-Dimer (200.0-255.0) ng/mL Bld Gas Analysis Time Sample Site ABG pH (7.35-7.45) ABG pCO2 (34-45) mmHg ABG pO2 (80-100) mmHg ABG HCO3 (22.0-26.0) mmol/L ABG Total CO2 (21.0-29.0) MMOL/L ABG O2 Saturation (94-98) % ABG Base Excess (-2.0-3.0) mmol/L Anatoliy Test VBG pH (7.31-7.41) Ionized Calcium (1.15-1.33) mmol/L Room Air Sodium 140 (135-145) mmol/L Potassium 3.4 L (3.5-4.5) mmol/L Chloride 109 (101-111) mmol/L Carbon Dioxide 21 (21-32) mmol/L Anion Gap 10.0 (6-13) BUN 9 (6-20) mg/dL Creatinine 0.8 (0.6-1.3) mg/dL Estimated GFR (MDRD) 85 L (>89) Glucose 108 H (74-104) mg/dL POC Whole Bld Glucose 85 (70 - 100) mg/dL Estimat Average Glucose (70-100) mg/dL Hemoglobin A1c % (4.27-6.07) % Calcium 8.3 L (8.5-10.3) mg/dL Phosphorus 3.9 (2.5-5.0) mg/dL Magnesium 1.6 L (1.7-2.3) mg/dL Total Bilirubin (0.2-1.0) mg/dL Direct Bilirubin (0.03-0.18) mg/dL AST (10-42) IU/L ALT (10-60) IU/L Alkaline Phosphatase (42-121) IU/L Troponin I High Sens (2.3-14.8) ng/L B-Natriuretic Peptide (5-100) pg/mL Total Protein (6.4-8.9) g/dL Albumin (3.2-5.5) g/dL Globulin (2.1-4.2) g/dL Nasal Screen MRSA (PCR) (NEGATIVE) 12/19/23 12/19/23 12/19/23 Range/Units 17:55 17:36 16:15 WBC (4.8-10.8) x10^3/uL RBC (4.20-5.40) 10^6/uL Hgb (12.0-16.0) g/dL Hct (37.0-47.0) % MCV (81.0-99.0) fL MCH (27.0-31.0) pg MCHC (32.0-36.0) g/dL RDW (12.0-15.0) % Plt Count (130-450) 10^3/uL MPV (7.9-10.8) fL Neut # (Auto) (1.5-6.6) 10^3/uL Lymph # (Auto) (1.5-3.5) 10^3/uL [place] # (Auto) (0.0-1.0) 10^3/uL Eos # (Auto) (0.0-0.7) 10^3/uL Baso # (Auto) (0.0-0.1) 10^3/uL Absolute Nucleated RBC x10^3/uL Nucleated RBC % /100WBC PT (9.9-12.6) secs INR (0.8-1.2) D-Dimer (200.0-255.0) ng/mL Bld Gas Analysis Time 1626 Sample Site RIGHT RADIAL ABG pH 7.51 H (7.35-7.45) ABG pCO2 26 L (34-45) mmHg ABG pO2 68 L (80-100) mmHg ABG HCO3 20.3 L (22.0-26.0) mmol/L ABG Total CO2 21.1 (21.0-29.0) MMOL/L ABG O2 Saturation 94 (94-98) % ABG Base Excess -1.9 (-2.0-3.0) mmol/L Anatoliy Test POSITIVE VBG pH (7.31-7.41) Ionized Calcium (1.15-1.33) mmol/L Room Air YES Sodium (135-145) mmol/L Potassium (3.5-4.5) mmol/L Chloride (101-111) mmol/L Carbon Dioxide (21-32) mmol/L Anion Gap (6-13) BUN (6-20) mg/dL Creatinine (0.6-1.3) mg/dL Estimated GFR (MDRD) (>89) Glucose (74-104) mg/dL POC Whole Bld Glucose 120 H (70 - 100) mg/dL Estimat Average Glucose (70-100) mg/dL Hemoglobin A1c % (4.27-6.07) % Calcium (8.5-10.3) mg/dL Phosphorus (2.5-5.0) mg/dL Magnesium (1.7-2.3) mg/dL Total Bilirubin (0.2-1.0) mg/dL Direct Bilirubin (0.03-0.18) mg/dL AST (10-42) IU/L ALT (10-60) IU/L Alkaline Phosphatase (42-121) IU/L Troponin I High Sens (2.3-14.8) ng/L B-Natriuretic Peptide (5-100) pg/mL Total Protein (6.4-8.9) g/dL Albumin (3.2-5.5) g/dL Globulin (2.1-4.2) g/dL Nasal Screen MRSA (PCR) NEGATIVE (NEGATIVE) 12/19/23 12/19/23 12/19/23 Range/Units 16:11 16:11 16:11 WBC (4.8-10.8) x10^3/uL RBC (4.20-5.40) 10^6/uL Hgb (12.0-16.0) g/dL Hct (37.0-47.0) % MCV (81.0-99.0) fL MCH (27.0-31.0) pg MCHC (32.0-36.0) g/dL RDW (12.0-15.0) % Plt Count (130-450) 10^3/uL MPV (7.9-10.8) fL Neut # (Auto) (1.5-6.6) 10^3/uL Lymph # (Auto) (1.5-3.5) 10^3/uL [place] # (Auto) (0.0-1.0) 10^3/uL Eos # (Auto) (0.0-0.7) 10^3/uL Baso # (Auto) (0.0-0.1) 10^3/uL Absolute Nucleated RBC x10^3/uL Nucleated RBC % /100WBC PT 12.4 (9.9-12.6) secs INR 1.2 (0.8-1.2) D-Dimer 776.2 H (200.0-255.0) ng/mL Bld Gas Analysis Time Sample Site ABG pH (7.35-7.45) ABG pCO2 (34-45) mmHg ABG pO2 (80-100) mmHg ABG HCO3 (22.0-26.0) mmol/L ABG Total CO2 (21.0-29.0) MMOL/L ABG O2 Saturation (94-98) % ABG Base Excess (-2.0-3.0) mmol/L Anatoliy Test VBG pH (7.31-7.41) Ionized Calcium (1.15-1.33) mmol/L Room Air Sodium (135-145) mmol/L Potassium (3.5-4.5) mmol/L Chloride (101-111) mmol/L Carbon Dioxide (21-32) mmol/L Anion Gap (6-13) BUN (6-20) mg/dL Creatinine (0.6-1.3) mg/dL Estimated GFR (MDRD) (>89) Glucose (74-104) mg/dL POC Whole Bld Glucose (70 - 100) mg/dL Estimat Average Glucose (70-100) mg/dL Hemoglobin A1c % (4.27-6.07) % Calcium 8.6 (8.5-10.3) mg/dL Phosphorus 3.0 (2.5-5.0) mg/dL Magnesium 1.5 L (1.7-2.3) mg/dL Total Bilirubin 0.4 (0.2-1.0) mg/dL Direct Bilirubin < 0.10 (0.03-0.18) mg/dL AST 13 (10-42) IU/L ALT 12 (10-60) IU/L Alkaline Phosphatase 110 (42-121) IU/L Troponin I High Sens 33.9 H* (2.3-14.8) ng/L B-Natriuretic Peptide (5-100) pg/mL Total Protein 6.2 L (6.4-8.9) g/dL Albumin 3.1 L (3.2-5.5) g/dL Globulin 3.1 (2.1-4.2) g/dL Nasal Screen MRSA (PCR) (NEGATIVE) 12/19/23 12/19/23 12/19/23 Range/Units 14:52 14:52 14:52 WBC 10.7 (4.8-10.8) x10^3/uL RBC 3.99 L (4.20-5.40) 10^6/uL Hgb 11.1 L (12.0-16.0) g/dL Hct 35.4 L (37.0-47.0) % MCV 88.7 (81.0-99.0) fL MCH 27.8 (27.0-31.0) pg MCHC 31.4 L (32.0-36.0) g/dL RDW 14.3 (12.0-15.0) % Plt Count 370 (130-450) 10^3/uL MPV 10.5 (7.9-10.8) fL Neut # (Auto) 8.9 H (1.5-6.6) 10^3/uL Lymph # (Auto) 1.1 L (1.5-3.5) 10^3/uL [place] # (Auto) 0.5 (0.0-1.0) 10^3/uL Eos # (Auto) 0.1 (0.0-0.7) 10^3/uL Baso # (Auto) 0.1 (0.0-0.1) 10^3/uL Absolute Nucleated RBC 0.00 x10^3/uL Nucleated RBC % 0.0 /100WBC PT (9.9-12.6) secs INR (0.8-1.2) D-Dimer (200.0-255.0) ng/mL Bld Gas Analysis Time Sample Site ABG pH (7.35-7.45) ABG pCO2 (34-45) mmHg ABG pO2 (80-100) mmHg ABG HCO3 (22.0-26.0) mmol/L ABG Total CO2 (21.0-29.0) MMOL/L ABG O2 Saturation (94-98) % ABG Base Excess (-2.0-3.0) mmol/L Anatoliy Test VBG pH (7.31-7.41) Ionized Calcium (1.15-1.33) mmol/L Room Air Sodium 141 (135-145) mmol/L Potassium 3.8 (3.5-4.5) mmol/L Chloride 109 (101-111) mmol/L Carbon Dioxide 21 (21-32) mmol/L Anion Gap 11.0 (6-13) BUN 8 (6-20) mg/dL Creatinine 0.7 (0.6-1.3) mg/dL Estimated GFR (MDRD) 100 (>89) Glucose 94 (74-104) mg/dL POC Whole Bld Glucose (70 - 100) mg/dL Estimat Average Glucose (70-100) mg/dL Hemoglobin A1c % (4.27-6.07) % Calcium 8.9 (8.5-10.3) mg/dL Phosphorus (2.5-5.0) mg/dL Magnesium (1.7-2.3) mg/dL Total Bilirubin (0.2-1.0) mg/dL Direct Bilirubin (0.03-0.18) mg/dL AST (10-42) IU/L ALT (10-60) IU/L Alkaline Phosphatase (42-121) IU/L Troponin I High Sens 28.0 H* (2.3-14.8) ng/L B-Natriuretic Peptide 575 H (5-100) pg/mL Total Protein (6.4-8.9) g/dL Albumin (3.2-5.5) g/dL Globulin (2.1-4.2) g/dL Nasal Screen MRSA (PCR) (NEGATIVE) Sepsis Event Note (H) - Evaluation Current Stage of Sepsis: Resolved Possible source of Sepsis: positive: Pulmonary, Genitourinary Confirmed Source and Organism (if known) of Sepsis: pnuemonia seems to be source of sepsis. sepsis has now resolved. - Sepsis Criteria Sepsis Criteria: Recorded Temperature greater than 38.3C or Less than 36C, Recorded Heart Rate greater than 90 bpm, Recorded Respiratory Rate greater than 20, Respiratory: Increasing oxygen requirements Assessment/Plan - Problem List (1) Pulmonary edema Impression: now resolved. Qualifiers: Chronicity: acute Qualified Code(s): J81.0 - Acute pulmonary edema (2) Fever Impression: from pneumonia. on appropriate abx. will continue this until Friday and switch to oral and discharge.
[2023-12-20] MEDS ORDERED: IRON DEXTRAN 1,000 MG in SODIUM CHLORIDE 0.9% 250 ML IV ONE (13:00)
[2023-12-20] MEDS ORDERED: polyethylene glycoL 3350 17 GM PACKET PO SCH (13:14)
[2023-12-20] MEDS: DOCUSATE SODIUM 250 MG CAPSULE PO SCH (13:40)
[2023-12-20] MEDS: polyethylene glycoL 3350 17 GM PACKET PO SCH (15:00)
[2023-12-20] MEDS: SENNA 8.6 MG TABLET PO SCH (15:00)
[2023-12-21] MEDS: SODIUM CHLORIDE FLUSH 0.9% 10 ML SYRINGE IVP SCH ×3 (00:42→16:51)
[2023-12-21] MEDS: metroNIDAZOLE 500 MG/100 ML 500 MG/100 ML BAG IV SCH ×3 (03:09→16:50)
[2023-12-21 04:40] LABS: BASOPHILS % (AUTO) 0.6 %; EOSINOPHILS # (AUTO) 0.3 10^3/uL (0.0-0.7); EOSINOPHILS % (AUTO) 3.7 %; HGB - HEMOGLOBIN 8.7 g/dL (12.0-16.0); LYMPHOCYTES # (AUTO) 1.9 10^3/uL (1.5-3.5); LYMPHOCYTES % (AUTO) 27.3 %; MEAN CORPUSCULAR HEMOGLOBIN 28.6 pg (27.0-31.0); MEAN CORPUSCULAR HGB CONC 32.2 g/dL (32.0-36.0); MEAN CORPUSCULAR VOLUME 88.8 fL (81.0-99.0); MEAN PLATELET VOLUME 10.1 fL (7.9-10.8); MONOCYTES # (AUTO) 0.6 10^3/uL (0.0-1.0); MONOCYTES % (AUTO) 8.6 %; NEUTROPHILS # (AUTO) 4.2 10^3/uL (1.5-6.6); PLT - PLATELET COUNT 329 10^3/uL (130-450); RED BLOOD COUNT 3.04 10^6/uL (4.20-5.40); RED CELL DISTRIBUTION WIDTH 14.6 % (12.0-15.0); WHITE BLOOD COUNT 7.1 x10^3/uL (4.8-10.8)
[2023-12-21 05:00] LABS: CALCIUM 8.7 mg/dL (8.5-10.3); CREATININE 0.7 mg/dL (0.6-1.3); MAGNESIUM 1.8 mg/dL (1.7-2.3); POTASSIUM 3.6 mmol/L (3.5-4.5)
[2023-12-21] MEDS: LABETALOL 100 MG TABLET PO SCH ×2 (06:23→14:15)
[2023-12-21] MEDS: IBUPROFEN 600 MG TABLET PO PRN (08:02)
[2023-12-21] MEDS: INSULIN LISPRO 300 UNIT/3 ML PEN SUBQ SCH ×3 (08:07→16:48)
[2023-12-21] MEDS ORDERED: DOCUSATE SODIUM 250 MG CAPSULE PO SCH (09:00)
[2023-12-21] MEDS ORDERED: SENNA 8.6 MG TABLET PO SCH (09:00)
[2023-12-21] MEDS ORDERED: polyethylene glycoL 3350 17 GM PACKET PO SCH (09:00)
[2023-12-21] MEDS: cefTRIAXone 2 GM in SODIUM CHLORIDE 0.9% MINIBAG 100 ML IV SCH (09:33)
[2023-12-21] MEDS: CHOLECALCIFEROL 25 MCG TABLET PO SCH (09:34)
[2023-12-21] MEDS: DOCUSATE SODIUM 250 MG CAPSULE PO SCH (09:34)
[2023-12-21] MEDS: ENOXAPARIN 40 MG/0.4 ML SYRINGE SUBQ SCH (09:34)
[2023-12-21] MEDS: FAMOTIDINE 20 MG/2 ML VIAL IVP SCH (09:35)
[2023-12-21] MEDS: SENNA 8.6 MG TABLET PO SCH (09:36)
[2023-12-21] MEDS: polyethylene glycoL 3350 17 GM PACKET PO SCH (09:36)
--- NOTE | 2023-12-21 10:30 | PROVIDER PROGRESS NOTE ---
Assessment/Plan - Problem List (1) Aspiration pneumonia Assessment/Plan: I was called to see her for respiratory distress several days ago. The exam showed rales and rhonchi, no wheezing. Patient herself felt that this shortness of breath was different than her usual asthma attack. Her Hx was signif for 2 episodes of vomiting during the vaginal delivery, due to Fentanyl, several days previously. Her admission CXR had subtle interstitial changes perihilar which could be pulmonary edema or viral findings. A repeat chest x-ray was read as having moderate pulmonary edema and a amniotic fluid embolus could not be ruled out. She was moved to ICU and had a chest CT, which was read as having aspiration PNA and no PE was seen. Her troponins ruled her out for an TN. She was given a dose of Lasix 20 mg IV x1 to treat the pulmonary edema. We changed antibx to Ceftriaxone IV daily and Metronidazole 500 mg IV every 8 H Recommend: I discussed the plan today with Dr. Mason of [facility]. She can be discharged tonight, after receiving 48 hrs of iv antibx, which finish at about 1800 today She needs 5 more days of antibx that cover oral anaerobes. These will be ordered by elec prescription by Dr Mason to the patient's preferred pharmacy. I told the pt and her mother at bedside today, that those antibx need to be started tomorrow morning. (2) Asthma Conclusion/Plan: She normally uses albuterol only as needed, not scheduled and only gets asthma attacks seasonally Her exam during resp exacerbation was not consistent with asthma and she herself said this did not feel like her asthma attack Recommend: Continue with nebulized bronchodilators just PRN (3) Anemia Conclusion/Plan: Hgb was 8 at adm then went up to 11, so I cancelled the iv Iron Dextran ordered by OBGYN. The next Hgb again was 8. So possibly the 11 was a lab error or from signif vasoconstriction. IV Iron Dectran was given yesterday. All labs were reviewed. Her Hgb is 8.7 today Recommend: Management as per OBGYN for anemia post-delivery (4) Transient hypertension during , Conclusion/Plan: Patient was diagnosed with pre-eclampsia. She has been on Labetalol Recommend: Continue with blood pressure meds for hypertension control (5) Endometritis Conclusion/Plan: The fever which caused her to come to the ER and workup by [employer], was felt to be endometritis and she was started on empiric antibiotics. We changed her to Flagyl and Ceftrixone, which also cover organisms Recommend: Antibiotic changes as above. (6) Gestational diabetes Conclusion/Plan: As per history. Her A1c came back at 5.9 - Current Meds Current Meds: Current Medications Generic Name Dose Route Start Last Admin Trade Name Freq PRN Reason Stop Dose Admin Acetaminophen 1,000 mg 12/19/23 00:32 12/20/23 02:05 Acetaminophen 500 Mg Tablet PO 1,000 mg Q6H PRN Administration Pain or Fever > 38C (100.4F) Albuterol 2.5 mg 12/19/23 04:58 12/19/23 05:30 Albuterol Neb 2.5 Mg/3 Ml INH 2.5 mg RTQ6H PRN Administration Shortness of Air/Wheezing Cholecalciferol 50 mcg 12/19/23 17:00 12/21/23 09:34 Cholecalciferol 25 Mcg Tablet PO 50 mcg DAILY CASSY Administration Docusate Sodium 250 - 500 mg 12/21/23 09:00 12/21/23 09:36 Docusate Sodium 250 Mg Capsule PO Not Given DAILY CASSY Docusate Sodium 250 - 500 mg 12/20/23 13:14 12/21/23 09:34 Docusate Sodium 250 Mg Capsule PO 250 mg DAILY CASSY Administration Enoxaparin Sodium 40 mg 12/19/23 09:00 12/21/23 09:34 Enoxaparin 40 Mg/0.4 Ml Syringe SUBQ 40 mg DAILY CASSY Administration Famotidine 20 mg 12/19/23 21:00 12/21/23 09:35 Famotidine 20 Mg/2 Ml Vial IVP 20 mg BID CASSY Administration Ceftriaxone Sodium 2 gm/ 100 mls @ 200 mls/hr 12/19/23 18:49 12/21/23 09:33 Sodium Chloride IV 200 mls/hr DAILY CASSY Administration Metronidazole 500 mg in 100 mls @ 100 mls/hr 12/19/23 19:00 12/21/23 04:09 Flagyl 500 Mg/100 Ml IV Infused Q8H CASSY Infusion Ibuprofen 600 mg 12/19/23 00:32 12/21/23 08:02 Ibuprofen 600 Mg Tablet PO 600 mg Q6H PRN Administration PAIN 1-4 Insulin Human Lispro 1 - 5 unit 12/19/23 21:00 12/21/23 08:07 Insulin Lispro 300 Unit/3 Ml Pen SUBQ Not Given 0800,1200,1700,2100 [facility] Protocol Labetalol HCl 200 mg 12/19/23 15:00 12/21/23 06:23 Labetalol 100 Mg Tablet PO 200 mg TID CASSY Administration Polyethylene Glycol 17 gm 12/20/23 13:15 12/21/23 09:36 Polyethylene Glycol 3350 17 Gm Packet PO Not Given DAILY CASSY Senna 8.6 - 17.2 mg 12/20/23 13:14 12/21/23 09:36 Senna 8.6 Mg Tablet PO Not Given DAILY CASSY Sodium Chloride 10 ml 12/19/23 17:00 12/21/23 09:36 Sodium Chloride Flush 0.9% 10 Ml Syringe IVP 10 ml 0100,0900,1700 CASSY Administration Sodium Chloride 10 ml 12/19/23 15:48 12/20/23 02:46 Sodium Chloride Flush 0.9% 10 Ml Syringe IVP 10 ml PRN PRN Administration NEEDED PER PROVIDER ORDERS - Lab Result Fish Bone Diagrams: 12/21/23 04:25 12/21/23 04:25 Subjective - Subjective Patient Reports: Feeling Better, Shortness of Breath Objective Vital Signs: Vital Signs - 24 hr 12/20/23 12/20/23 12/20/23 13:45 14:40 16:30 Temperature 37.2 C Heart Rate [ 71 Brachial] Respiratory 14 Rate Blood Pressure 138/81 H [Left Brachial artery] Blood Pressure 156/104 H 149/96 H [Left Radial artery] Blood Pressure [Right Brachial artery] O2 Saturation 95 If not protocol : Oxygen Flow, liters/minute 12/21/23 12/21/23 12/21/23 00:20 06:12 07:45 Temperature 36.7 C Heart Rate [ 68 78 Brachial] Respiratory 18 16 16 Rate Blood Pressure 135/84 H [Left Brachial artery] Blood Pressure [Left Radial artery] Blood Pressure 133/79 H [Right Brachial artery] O2 Saturation 95 95 89 L If not protocol 1 : Oxygen Flow, liters/minute 12/21/23 12/21/23 08:08 08:30 Temperature 36.7 C Heart Rate [ 87 Brachial] Respiratory 14 Rate Blood Pressure 156/78 H [Left Brachial artery] Blood Pressure [Left Radial artery] Blood Pressure [Right Brachial artery] O2 Saturation 92 If not protocol 1 : Oxygen Flow, liters/minute Oxygen O2 Source Room air I&O (Last 24 Hrs): Intake and Output Totals x24h 12/19/23 12/20/23 12/21/23 23:59 23:59 23:59 Intake Total 5817.56 2580 1070 Output Total 2725 2000 850 Balance 3092.56 580 220 General: Alert, Oriented x3 HEENT: EOMI, Mucous membr. moist/pink Neck: Supple, No JVD Neuro: Alert, Non Focal Cardiovascular: Regular rate, No murmurs Respiratory: No respiratory distress, Rales (R base posteriorly. No wheezing.) Extremities: No clubbing, No edema - Results Results: Laboratory Results WBC 7.1 x10^3/uL (4.8-10.8) 12/21/23 04:25 RBC 3.04 10^6/uL (4.20-5.40) L 12/21/23 04:25 Hgb 8.7 g/dL (12.0-16.0) L 12/21/23 04:25 Hct 27.0 % (37.0-47.0) L 12/21/23 04:25 MCV 88.8 fL (81.0-99.0) 12/21/23 04:25 MCH 28.6 pg (27.0-31.0) 12/21/23 04:25 MCHC 32.2 g/dL (32.0-36.0) 12/21/23 04:25 RDW 14.6 % (12.0-15.0) 12/21/23 04:25 Plt Count 329 10^3/uL (130-450) 12/21/23 04:25 MPV 10.1 fL (7.9-10.8) 12/21/23 04:25 Neut # (Auto) 4.2 10^3/uL (1.5-6.6) 12/21/23 04:25 Lymph # (Auto) 1.9 10^3/uL (1.5-3.5) 12/21/23 04:25 Faulk # (Auto) 0.6 10^3/uL (0.0-1.0) 12/21/23 04:25 Eos # (Auto) 0.3 10^3/uL (0.0-0.7) 12/21/23 04:25 Baso # (Auto) 0.0 10^3/uL (0.0-0.1) 12/21/23 04:25 Absolute Nucleated RBC 0.00 x10^3/uL 12/21/23 04:25 Nucleated RBC % 0.0 /100WBC 12/21/23 04:25 PT 12.4 secs (9.9-12.6) 12/19/23 16:11 INR 1.2 (0.8-1.2) 12/19/23 16:11 D-Dimer 776.2 ng/mL (200.0-255.0) H 12/19/23 16:11 Bld Gas Analysis Time 1626 12/19/23 16:15 Sample Site RIGHT RADIAL 12/19/23 16:15 ABG pH 7.51 (7.35-7.45) H 12/19/23 16:15 ABG pCO2 26 mmHg (34-45) L 12/19/23 16:15 ABG pO2 68 mmHg (80-100) L 12/19/23 16:15 ABG HCO3 20.3 mmol/L (22.0-26.0) L 12/19/23 16:15 ABG Total CO2 21.1 MMOL/L (21.0-29.0) 12/19/23 16:15 ABG O2 Saturation 94 % (94-98) 12/19/23 16:15 ABG Base Excess -1.9 mmol/L (-2.0-3.0) 12/19/23 16:15 Anatoliy Test POSITIVE 12/19/23 16:15 VBG pH 7.482 (7.31-7.41) H 12/20/23 04:21 Ionized Calcium 1.07 mmol/L (1.15-1.33) L 12/20/23 04:21 Room Air YES 12/19/23 16:15 Sodium 140 mmol/L (135-145) 12/21/23 04:25 Potassium 3.6 mmol/L (3.5-4.5) 12/21/23 04:25 Chloride 109 mmol/L (101-111) 12/21/23 04:25 Carbon Dioxide 21 mmol/L (21-32) 12/21/23 04:25 Anion Gap 10.0 (6-13) 12/21/23 04:25 BUN 10 mg/dL (6-20) 12/21/23 04:25 Creatinine 0.7 mg/dL (0.6-1.3) 12/21/23 04:25 Estimated GFR (MDRD) 100 (>89) 12/21/23 04:25 Glucose 78 mg/dL (74-104) 12/21/23 04:25 POC Whole Bld Glucose 74 mg/dL (70 - 100) 12/21/23 07:54 Estimat Average Glucose 123 mg/dL (70-100) H 12/20/23 04:21 Hemoglobin A1c % 5.9 % (4.27-6.07) 12/20/23 04:21 Lactic Acid 1.5 mmol/L (0.5-2.2) 12/18/23 22:27 Calcium 8.7 mg/dL (8.5-10.3) 12/21/23 04:25 Phosphorus 3.9 mg/dL (2.5-5.0) 12/20/23 04:21 Magnesium 1.8 mg/dL (1.7-2.3) 12/21/23 04:25 Total Bilirubin 0.4 mg/dL (0.2-1.0) 12/19/23 16:11 Direct Bilirubin < 0.10 mg/dL (0.03-0.18) 12/19/23 16:11 AST 13 IU/L (10-42) 12/19/23 16:11 ALT 12 IU/L (10-60) 12/19/23 16:11 Alkaline Phosphatase 110 IU/L (42-121) 12/19/23 16:11 Troponin I High Sens 33.9 ng/L (2.3-14.8) H* 12/19/23 16:11 B-Natriuretic Peptide 575 pg/mL (5-100) H 12/19/23 14:52 Total Protein 6.2 g/dL (6.4-8.9) L 12/19/23 16:11 Albumin 3.1 g/dL (3.2-5.5) L 12/19/23 16:11 Globulin 3.1 g/dL (2.1-4.2) 12/19/23 16:11 Albumin/Globulin Ratio 1.0 (1.0-2.2) 12/18/23 22:27 Urine Color YELLOW 12/18/23 02:30 Urine Clarity HAZY (CLEAR) 12/18/23 02:30 Urine pH 6.0 PH (5.0-7.5) 12/18/23 02:30 Ur Specific [place] <=1.005 (1.002-1.030) 12/18/23 02:30 Urine Protein NEGATIVE mg/dL (NEGATIVE) 12/18/23 02:30 Urine Glucose (UA) NEGATIVE mg/dL (NEGATIVE) 12/18/23 02:30 Urine Ketones NEGATIVE mg/dL (NEGATIVE) 12/18/23 02:30 Urine Occult Blood LARGE (NEGATIVE) H 12/18/23 02:30 Urine Nitrite NEGATIVE (NEGATIVE) 12/18/23 02:30 Urine Bilirubin NEGATIVE (NEGATIVE) 12/18/23 02:30 Urine Urobilinogen 0.2 (NORMAL) E.U./dL (NORMAL) 12/18/23 02:30 Ur Leukocyte Esterase SMALL (NEGATIVE) H 12/18/23 02:30 Urine RBC 11-25 /HPF (0-5) H 12/18/23 02:30 Urine WBC 6-10 /HPF (0-5) H 12/18/23 02:30 Ur Squamous Epith Cells FEW Squamous (<= Few) 12/18/23 02:30 Urine Bacteria Rare /HPF (None Seen) 12/18/23 02:30 Urine Culture Comments INDICATED 12/18/23 02:30 U Random Total Protein 19 mg/dL 12/18/23 02:30 Nasal Adenovirus (PCR) NOT DETECTED 12/18/23 22:38 Nasal B. parapertussis DNA (PCR) NOT DETECTED 12/18/23 22:38 Nasal Coronavir 229E PCR NOT DETECTED 12/18/23 22:38 Nasal Coronavir HKU1 PCR NOT DETECTED 12/18/23 22:38 Nasal Coronavir NL63 PCR NOT DETECTED 12/18/23 22:38 Nasal Coronavir OC43 PCR NOT DETECTED 12/18/23 22:38 Nasal Enterovir/Rhinovir PCR NOT DETECTED 12/18/23 22:38 Nasal Influenza B PCR NOT DETECTED 12/18/23 22:38 Nasal Influenza A PCR NOT DETECTED 12/18/23 22:38 Nasal Parainfluen 1 PCR NOT DETECTED 12/18/23 22:38 Nasal Parainfluen 2 PCR NOT DETECTED 12/18/23 22:38 Nasal Parainfluen 3 PCR NOT DETECTED 12/18/23 22:38 Nasal Parainfluen 4 PCR NOT DETECTED 12/18/23 22:38 Nasal RSV (PCR) NOT DETECTED 12/18/23 22:38 Nasal Screen MRSA (PCR) NEGATIVE (NEGATIVE) 12/19/23 17:55 Nasal B.pertussis DNA PCR NOT DETECTED 12/18/23 22:38 Nasal C.pneumoniae (PCR) NOT DETECTED 12/18/23 22:38 Andrew Human Metapneumo PCR NOT DETECTED 12/18/23 22:38 Nasal M.pneumoniae (PCR) NOT DETECTED 12/18/23 22:38 Nasal SARS-CoV-2 (PCR) NOT DETECTED 12/18/23 22:38 Sepsis Event Note (H) - Evaluation Current Stage of Sepsis: Sepsis Possible source of Sepsis: positive: Pulmonary, Genitourinary - Sepsis Criteria Sepsis Criteria: Recorded Temperature greater than 38.3C or Less than 36C, Recorded Heart Rate greater than 90 bpm, Recorded Respiratory Rate greater than 20, Respiratory: Increasing oxygen requirements
[2023-12-21 18:57] VITALS: BP 156/91; O2SAT 92
--- NOTE | 2023-12-21 22:30 | Discharge Plan ---
Discharge Plan Problem Reviewed?: Yes Disposition: Home, Self Care Condition: Good Prescriptions: cefuroxime axetiL [Ceftin] 250 mg PO Q12H 5 Days #10 tablet metroNIDAZOLE [Flagyl] 500 mg PO BID 5 Days #10 tablet Diet: Regular Activity Restrictions: No Restrictions Shower Restrictions: No Driving Restrictions: No Instruction Topics: Pneumonia Dc No Smoking: If you smoke, Please STOP! Call for help. Follow-up with: Loyd Patel MD [Primary Care Provider] -
--- NOTE | 2023-12-21 22:34 | DISCHARGE SUMMARY ---
"Discharge Summary Admit Date: 12/18/23 Discharge Date: 12/21/23 Discharging Provider: Elaine Mason MD Code Status: Attempt Resuscitation - DIAGNOSES Admission Diagnoses: pp endometritis - presumed. PP fever. Discharge Diagnoses with Status of Each Condition: Aspiration pneumonia treated with cetriaxone and flagyl iv and then discharged on ceftin and flagyl po anemia - acute - treated with 1000 mg iv iron dextran flash pulmonary edema - resolved with lasix. pp hypertension - continue labetolol for now. - HPI History of Present Illness: presented to ER 6 days pp with fever. no clear localizing sx. - CONSULTS | PROCEDURES Consultations: Hospitalist Procedures: CT scan of chest - HOSPITAL COURSE Hospital Course: treated with gentamycin and ancef initially then developed flash pulmonary edema. Hospitalist was called to evaluate. Chest Xray showed signficant pulmonary edema which resolved with 20 mg iv lasix and probably spontaneous relaxation of the causal vasoconstriction. CT scan of chest showed bilateral pneumonia consistent with aspiriation that probably occurred with vomiting in labor. she had an epidural for many days. She improved quickly with change of abx to ceftriaxone and flagyl. 1000 mg iron dextran was given for her anemia. She was discharged home on hospital day 4 after 48 hours on the new abx regimen. - ALLERGIES Allergies/Adverse Reactions: Allergies Allergy/AdvReac Type Severity Reaction Status Date / Time Penicillins Allergy Rash Verified 12/18/23 21:42 - MEDICATIONS Home Medications: Ambulatory Orders Medication Instructions Recorded Confirmed Albuterol 2.5 mg INH Q4H PRN #30 ml 01/31/21 12/19/23 Ibuprofen [Motrin] 600 mg PO Q6H PRN #30 tab 12/15/23 12/19/23 Labetalol [Trandate] 100 mg PO BID #60 tablet 12/17/23 12/19/23 Metformin HCl [Metformin ER 2 tab PO DAILY 12/19/23 12/19/23 Gastric] Mupirocin 2% Oint [Bactroban 2% 1 applic TOP BID 12/19/23 12/19/23 Oint] cefuroxime axetiL [Ceftin] 250 mg PO Q12H 5 Days #10 tablet 12/21/23 metroNIDAZOLE [Flagyl] 500 mg PO BID 5 Days #10 tablet 12/21/23 - PHYSICAL EXAM AT DISCHARGE General Appearance: positive: No acute distress Respiratory: positive: No respiratory distress, Breath sounds nml Cardiovascular: positive: Regular rate & rhythm Abdomen: positive: Non-tender Skin: positive: Color nml, Warm, Dry Extremities: positive: Non-tender, Nml appearance, Pedal edema (minimal) - LABS Result Diagrams: 12/21/23 04:25 12/21/23 04:25 - SEPSIS Current Stage of Sepsis: Sepsis Possible source of Sepsis: Pulmonary, Genitourinary (ruled out as source) Sepsis Criteria: Recorded Temperature greater than 38.3C or Less than 36C, Recorded Heart Rate greater than 90 bpm, Recorded Respiratory Rate greater than 20, Respiratory: Increasing oxygen requirements - FOLLOW UP Follow Up: in clinic in 1 week - TIME SPENT Time Spent in Discharge (Minutes): 35"
== END 2023-12-21 18:54 | disposition home or self-care (01) | DRG 776 ==
LOC: ED 21:32 → MS2 12-19 00:28 → OBSVTOIN 12-19 15:46 → ICU 12-19 17:14
PROVIDERS: ADMIT Obstetrics & Gynecology; ATTEND Obstetrics & Gynecology
DX: O85 Puerperal sepsis (principal); J69.0 Pneumonitis due to inhalation of food and vomit; O99.53 Diseases of the respiratory system complicating the puerperium; J45.909 Unspecified asthma, uncomplicated; O90.81 Anemia of the puerperium; O99.345 Other mental disorders complicating the puerperium; F53.0 Postpartum depression; F41.9 Anxiety disorder, unspecified; F43.10 Post-traumatic stress disorder, unspecified; O24.435 Gestational diabetes mellitus in puerperium, controlled by oral hypoglycemic drugs; O14.95 Unspecified pre-eclampsia, complicating the puerperium; Z20.822 Contact with and (suspected) exposure to COVID-19; Z59.10 Inadequate housing, unspecified; Z79.84 Long term (current) use of oral hypoglycemic drugs; Z79.899 Other long term (current) drug therapy; Z88.0 Allergy status to penicillin
CPT/HCPCS: 36415; 36600; 71045; 71275; 80048; 80053; 80076; 81001; 82310; 82330; 82803; 83036; 83605; 83735; 83880; 84100; 84156; 84484; 85025; 85379; 85610; 87040; 87086; 87150; 87633; 93005; 94640; 94664; 96361; 96365; 96367; 96372; 96375; 99285; A9270; G0378; J1580; J1650; J1750; J7120; Q9967